=== PATIENT | male | born 1940 | race Caucasian/White ===

== ENCOUNTER 2017-02-05 10:59 | Day surgery (SDC) | payer MEDICARE ==
--- NOTE | 2017-02-05 08:22 | HP ---
DATE OF SURGERY: 02/05/2017 HISTORY OF PRESENT ILLNESS: The patient is a 76 year-old who had some thickening of the bowel on CT scan, history of weight loss 25 to 30 pounds, history of some diarrhea recently. He usually has constipation. He had a CT scan show some thickened bowel. Last colonoscopy several months ago by Dr. Daniels but he had some new thickening of the bowel on CT scan since that time. He had CT scan show multifocal colon bowel wall thickening, some stranding around the ascending colon, question whether colitis or other etiology. PAST MEDICAL HISTORY: Hypertension, hypothyroidism, hypercholesterolemia, chronic obstructive pulmonary disease. PAST SURGICAL HISTORY: Left knee and left elbow surgery in the past. MEDICATIONS: Hydrochlorothiazide, lisinopril, levothyroxine, Simvastatin, omeprazole, Combivent, diltiazem. ALLERGIES: NKDA. FAMILY HISTORY: Negative in regards to this problem. SOCIAL HISTORY: Former smoker. No alcohol abuse currently. REVIEW OF SYSTEMS: Ten systems reviewed per admission assessment, prior history and physical. No chest pain or palpitations other systems negative or noncontributory as above and per preadmission questionnaire. PHYSICAL EXAMINATION: GENERAL: No acute distress. HEENT: Sclerae nonicteric. NECK: No JVD. CHEST: Clear to auscultation. CVS: Regular rate and rhythm. ABDOMEN: Soft. No peritoneal signs. EXTREMITIES: No significant edema. NEURO: Alert, moving extremities symmetrically. No gross motor deficits noted. RECTAL: Deferred timed to endoscopy exam. IMPRESSION: History of some weight loss, diarrhea. He had some thickening of the bowel wall on recent CT scan. I feel he needs follow up colonoscopy to evaluate for colitis or other etiology. Risks and benefits explained in detail but not limited to bleeding or infection, small risk of bowel injury or perforation possibly requiring open procedure, small risk of missed or nondiagnosis or incomplete exam possibly requiring barium enema, other studies or procedures, general risk of anesthesia or sedation, possibility of inability to diagnose the etiology of symptoms possibly requiring other studies or procedures. He understands and agrees to the planned procedure and will proceed with outpatient colonoscopy under MAC anesthesia.
[~2017-02-05 10:59] MED LIST: DIPRIVAN 200 MG/20 ML IV ONE; Ketamine HCl 50 MG/ML IV ONE; Lactated Ringers 1,000 ML IV ONE; Lactated Ringers 1,000 ML IV SCH
[2017-02-05 14:48] VITALS: O2SAT 97
[2017-02-05 14:51] VITALS: BP 145/71; PULSE 51
--- NOTE | 2017-02-06 08:23 | OP ---
SURGERY DATE/TIME: 02/05/2017 1219 PREOPERATIVE DIAGNOSES: 1) History of thickened colon on CT scan. 2) History of diarrhea. 3) History of thickened colon and some stranding on CT scan since his last prior colonoscopy. Need for follow up colonoscopy to evaluate for microscopic colitis or other etiology. POSTOPERATIVE DIAGNOSES: 1) Poor prep limiting the exam. 2) Diverticulosis. 3) Internal and external hemorrhoids. 4) Small raised lesion versus hyperplastic lesion descending colon. 5) Very poor prep as well as very tortuous colon. PROCEDURES: 1) Colonoscopy to terminal ileum and cecum with random cold biopsy throughout the colon to evaluate for microscopic colitis. 2) Hot biopsy raised lesion versus early polyp descending colon versus hyperplastic lesion, path pending. SURGEON: Dr. Stanislaw Nunez. ANESTHESIA: MAC. ESTIMATED BLOOD LOSS: Minimal. INDICATIONS: As noted above. Risks and benefits explained in detail but not limited to and consent obtained. DESCRIPTION OF PROCEDURE AND FINDINGS: The patient is taken to the endoscopy room. MAC anesthesia introduced. After official time out and no disagreement with planned procedure, digital rectal exam did not reveal any rectal masses. He did have some small internal and external hemorrhoids. Video colonoscope inserted and passed up the tortuous sigmoid, descending, transverse colon. Again he had very tortuous colon. With multiple position changes, multiple staff members external pressure finally the scope was able to be passed into the ascending colon. He had cecum appendiceal orifice well visualized as well as the red tip at terminal ileum was grossly unremarkable. No gross signs of inflammatory bowel disease. Again, prep was very poor with several areas of liquidy semi-solid stool particularly in the right colon. The scope was slowly and carefully withdrawn. Random cold biopsies were taken through the colon particularly his right colon where there was some CT skin findings noted. There did not appear to be any obvious macroscopic colitis. No evidence of any ulcers or any signs of any large polyps, masses or other obstructing lesions. Random biopsies were taken to evaluate for microscopic colitis given the CT findings. Again the prep very much limited the exam for very small lesions. The scope was slowly and carefully withdrawn. There was a small raised lesion versus early polyp in descending colon. Descending colon was removed with hot biopsy forceps with brief bursts of cautery. Good hemostasis noted. Otherwise random cold biopsies had been taken to evaluate for microscopic colitis throughout the colon. He did have some diverticulosis. He did have some small internal and external hemorrhoids. The scope is withdrawn. The patient tolerated the procedure well. There had been no evidence of any gross macroscopic colitis. There had been no obvious large polyps, masses or obstructing lesions. The patient tolerated the procedure well. There were no immediate complications. Findings discussed with the family out in the waiting area. Whether he had an infectious colitis that had improved or not was unclear but no obvious macroscopic colitis on endoscopy exam.
== END 2017-02-05 14:40 | disposition home or self-care (01) ==
LOC: SDC 10:59
PROVIDERS: ATTEND Surgery
PROC: 0DBB8ZX Excision of Ileum, Via Natural or Artificial Opening Endoscopic, Diagnostic (ICD-10-PCS; principal; 2017-02-05)
PROC: 0DBH8ZX Excision of Cecum, Via Natural or Artificial Opening Endoscopic, Diagnostic (ICD-10-PCS; 2017-02-05)
PROC: 0DBM8ZX Excision of Descending Colon, Via Natural or Artificial Opening Endoscopic, Diagnostic (ICD-10-PCS; 2017-02-05)
DX: K57.90 Diverticulosis of intestine, part unspecified, without perforation or abscess without bleeding (principal); R93.3 Abnormal findings on diagnostic imaging of other parts of digestive tract; Z09 Encounter for follow-up examination after completed treatment for conditions other than malignant neoplasm; K64.8 Other hemorrhoids; K64.4 Residual hemorrhoidal skin tags; K63.9 Disease of intestine, unspecified; I10 Essential (primary) hypertension; E03.9 Hypothyroidism, unspecified; E78.00 Pure hypercholesterolemia, unspecified; J44.9 Chronic obstructive pulmonary disease, unspecified; Z79.899 Other long term (current) drug therapy
CPT/HCPCS: 00810; 36415; 88305; 99100; J2704

== ENCOUNTER 2019-09-02 11:23 | Day surgery (SDC) | payer MEDICARE ==
[~2019-09-02 11:23] MED LIST changes: +ACETAZOLAMIDE 250 MG TABLET PO ONE; +BETADINE 5% OPHTHALMIC 30 ML OP ONE; +BSS 500 ML, Fortaz/Tazicef 1 GM** 0.2 G IO ONE; -DIPRIVAN 200 MG/20 ML IV ONE; +Epinephrine Preservative Free 1 MG/ML INTRAOP ONE; -Ketamine HCl 50 MG/ML IV ONE; +LIDOCAINE HCL 1% AMPUL 5 ML IJ ONE; -Lactated Ringers 1,000 ML IV ONE; -Lactated Ringers 1,000 ML IV SCH; +Valium 5 MG PO ONE; +Zofran 4 MG/2 ML VIAL IV PRN
[2019-09-02] MEDS ORDERED: MIOSTAT IO ONE (11:24)
[2019-09-02] MEDS ORDERED: Lactated Ringers 1,000 ML IV SCH (11:30)
[2019-09-02] MEDS ORDERED: TETRACAINE 0.5% STERI-UNIT SOL OP ONE ×2 (11:30)
[2019-09-02] MEDS ORDERED: Ak-Dilate OPHTHALMIC*** 1.065 ML, Cyclogyl 1% OPHTH SOL 5 ML 1.065 ML, GATIFLOXACIN 0.5... OP ONE ×4 (11:30)
[2019-09-02] MEDS ORDERED: Lactated Ringers 1,000 ML IV ONE (11:37)
[2019-09-02] MEDS ORDERED: Versed 2 MG/2 ML Injection ONE (13:17)
[2019-09-02] MEDS ORDERED: SUBLIMAZE 100 MCG/2 ML ONE (14:05)
[2019-09-02 14:36] VITALS: O2SAT 99
[2019-09-02 14:58] VITALS: PULSE 53
[2019-09-02 15:15] VITALS: BP 135/65
--- NOTE | 2019-09-02 15:22 | OP ---
DATE/TIME OF OPERATION: 09/02/2019 1326 TIME DICTATED: 1437 PREOPERATIVE DIAGNOSIS: Dislocation of posterior intraocular lens implant right eye. POSTOPERATIVE DIAGNOSIS: Pseudophakia right eye. SURGEON: Tito Clements MD APPRENTICE PHOTOGRAPHER: None. OPERATIONS: 1. Replacement of intraocular lens implant right eye. 2. Vitrectomy right eye. 3. Peripheral iridectomy. ANESTHESIA: MAC ANESTHESIA PROVIDER: Mal Aguilera CRNA. DESCRIPTION OF PROCEDURE: The patient was taken to the operating room after dilating his right eye. The patient was then prepped and draped in the usual way for this procedure. Eyelid speculum was placed into the conjunctival sac to separate the eye lids. Using a keratome a 2.4 mm incision was made temporal at the limbus and a second incision was made at the 12:00 position 1.5 mm in diameter. The anterior chamber was entered and Viscoelastic was placed into the anterior chamber to keep the eye centered during the procedure. The posterior intraocular lens implant that was dislocated into the anterior vitreous was removed. One of the haptics of the intraocular lens implant was still in the sulcus nasally. That was held and the implant was brought up into the anterior chamber and then removed through an extended incision. The incision was 7 mm in diameter. An anterior vitrectomy was performed. Miostat was introduced into the anterior chamber restricted to the constriction of the pupil. More Viscoelastic was placed into the anterior chamber and +15.50 diopter anterior chamber lens implant [id number] made by [employer] was inspected and found to be grossly normal. The implant was left in viscoelastic and introduced into the anterior chamber implant was centered. The pupil was round and central. The anterior chamber was then closed using interrupted 10-0 nylon suture. Anterior chamber was water tight. The aspirating probe of the [employer] system was used to aspirate the excess viscoelastic. Again, Miostat was placed in the anterior chamber to keep the pupil centered. The pupil was round and behind the body of the intraocular lens implant. At 12:00 iridectomy was made through the 12:00 incision. Hydration was placed into the 12:00 incision to keep it sealed. Eyelid speculum was removed. The patient tolerated the procedure quite well and left the operating room in satisfactory condition after placing 3 drops of [id number] into the cul-de-sac.
== END 2019-09-02 15:10 | disposition home or self-care (01) ==
LOC: SDC 11:23
PROVIDERS: ATTEND Ophthalmology
DX: T85.22XA Displacement of intraocular lens, initial encounter (principal); H25.811 Combined forms of age-related cataract, right eye; I10 Essential (primary) hypertension; I51.9 Heart disease, unspecified; J44.9 Chronic obstructive pulmonary disease, unspecified; E78.00 Pure hypercholesterolemia, unspecified; E07.9 Disorder of thyroid, unspecified; Z79.899 Other long term (current) drug therapy
CPT/HCPCS: 66982; 66986; 99100; C1780; J0171; J2250; J3010; A9270-GY

== ENCOUNTER 2020-08-09 16:31 | Emergency (ER) | payer MEDICARE ==
[2020-08-09 16:44] VITALS: BP 145/78
[2020-08-09] MEDS ORDERED: TENIVAC VIAL IM ONE (17:05)
[2020-08-09] MEDS ORDERED: Adacel Vial IM ONE ×2 (17:12→17:14)
--- NOTE | 2020-08-09 17:14 | ERPHSYRPT ---
- History of Present Illness Source: patient Exam Limitations: no limitations Patient Subjective Stated Complaint: Pt was cutting tomatoes and cut his right hand little finger on top of the middle knuckle Triage Nursing Assessment: Pt brought himself to the ER, finger moderately bleeding, vitals wnl, pulses normal, rates pain as 4/10, no other complaints at this time Occurred: just prior to arrival Method of Injury: incised Quality: constant Severity of Pain-Max: moderate Severity of Pain-Current: mild Extremities Pain Location: 5th finger: right (PIP dorsum) Modifying Factors: Improves With: movement Allergies/Adverse Reactions: No Known Drug Allergies Allergy (Verified 08/09/20 16:44) Home Medications: Omeprazole 20 MG [Prilosec 20 mg] 20 mg PO DAILY 12/23/12 [History] Simvastatin [Zocor] 10 mg PO HS 12/23/12 [History] Levothyroxine Sodium 100 Mcg [Synthroid 100 Mcg] 125 mcg PO DAILY 12/24/12 [History] Lisinopril/Hydrochlorothiazide [Lisinopril-Hctz 20-12.5 mg Tab] 1 tab PO DAILY 12/24/12 [History] Acetaminophen [Tylenol Extra Strength Arthrit] 500 mg PO Q4H PRN PRN 05/20/13 [History] Ipratropium/Albuterol Sulfate [Combivent Inhaler] 14.7 gm IH TID PRN 05/20/13 [History] dilTIAZem HCL [Diltiazem ER] 180 mg PO DAILY 07/10/16 [History] Hx Tetanus, Diphtheria Vaccination/Date Given: Yes Hx Influenza Vaccination/Date Given: Yes Hx Pneumococcal Vaccination/Date Given: Yes Travel Risk - International Travel Have you traveled outside of the country in past 3 weeks: No - Coronavirus Screening Are you exhibiting any of the following symptoms?: No Close contact with a COVID-19 positive Pt in past 14-21 Days: No - Review of Systems Constitutional: No Fever, No Chills Eyes: No Symptoms Ears, Nose, & Throat: No Symptoms Respiratory: No Cough, No Dyspnea Cardiac: No Chest Pain, No Edema, No Syncope Abdominal/Gastrointestinal: No Abdominal Pain, No Nausea, No Vomiting, No Diarrhea Genitourinary Symptoms: No Dysuria Musculoskeletal: No Back Pain, No Neck Pain Skin: Other (skin avulsion), No Rash Neurological: No Dizziness, No Focal Weakness, No Sensory Changes Psychological: No Symptoms Endocrine: No Symptoms All Other Systems: Reviewed and Negative - Past Medical History Pertinent Past Medical History: Yes Neurological History: Migraines, TIA ENT History: Cataracts Cardiac History: Arrhythmia, High Cholesterol, Hypertension Respiratory History: COPD Endocrine Medical History: Adrenal Insufficiency, Hyperthyroidism, Hypothyroidism Musculoskeletal History: Osteoarthritis GI Medical History: GERD History: Other Psycho-Social History: No Pertinent History Male Reproductive Disorders: No Pertinent History Other Medical History: Pt sleeps with O2. some kidney insufficiency. HX afib - Past Surgical History Past Surgical History: Yes Neuro Surgical History: No Pertinent History Cardiac: Cardiac Catheterization Respiratory: No Pertinent History Gastrointestinal: Appendectomy Genitourinary: No Pertinent History Musculoskeletal: Orthopedic Surgery Male Surgical History: No Pertinent History Other Surgical History: left knee-bone chip removed, bilateral cataracts removed, R hand trigger finger release., left elbow - Social History Smoking Status: Former smoker Exposure to second hand smoke: No Drug Use: none Patient Lives Alone: Yes - Nursing Vital Signs Nursing Vital Signs: Initial Vital Signs Pulse Rate 74 08/09/20 16:37 Blood Pressure 145/78 08/09/20 16:37 O2 Sat by Pulse Oximetry 99 08/09/20 16:37 Pain Scale Pain Intensity 4 - Physical Exam General Appearance: alert Eyes, Ears, Nose, Throat Exam: moist mucous membranes Neck Exam: non-tender, supple Cardiovascular/Respiratory Exam: chest non-tender, normal breath sounds, regular rate/rhythm, no respiratory distress Abdominal Exam: non-tender, No guarding Back Exam: normal inspection, No vertebral tenderness Shoulder Exam: normal inspection Elbow/Forearm Exam: normal inspection Wrist Exam: normal inspection Hand Exam: laceration (skin avulsion over dorsum PIP Rt 5th digit. ) Neuro/Tendon Exam: normal sensation, normal motor functions Mental Status Exam: alert, oriented x 3, cooperative Skin Exam: normal color, warm, dry SpO2: 99 - Course Nursing assessment & vital signs reviewed: Yes Ordered Tests: Active Orders 24 hr Category Date Time Status Splint STAT Care 08/09/20 17:12 Completed Wound Care STAT Care 08/09/20 17:05 Completed Medication Summary Discontinued Medications Generic Name Dose Route Start Last Admin Trade Name Freq PRN Reason Stop Dose Admin Diphtheria/Tetanus/Acell Pertussis 0.5 ml 08/09/20 17:12 08/09/20 17:15 Adacel Vial IM 08/09/20 17:13 0.5 ml .ONCE ONE Administration Diphtheria/Tetanus/Acell Pertussis Confirm 08/09/20 17:14 Adacel Vial Administered 08/09/20 17:15 Dose 0.5 ml IM .STK-MED ONE Tetanus/Diphtheria Toxoids Adsorbed 0.5 ml 08/09/20 17:05 08/09/20 17:15 Tenivac Vial IM 08/09/20 17:06 Not Given .ONCE ONE - Progress Progress: improved Progress Note: 08/09/20 17:34 Will do wound care. will dress in flexed position since significant skin avulsion noted on dorsum PIP. Bleeding controlled. Will advised close follow up and possible wound care referral. Pt in agreement. - Departure Departure Disposition: Home Clinical Impression: Laceration of finger, Avulsion of skin of finger Condition: Stable Critical Care Time: No Referrals: ALLIE GUDINO MD [Primary Care Provider] - Instructions: Wound Care (DC) Additional Instructions: Monitor closely. Follow up with your PCP for further care and management. Change dressing in a few days. Return to ER if worse. Prescriptions: Smz/Tmp Ds Tablet [Bactrim Ds Tablet] 1 udtab PO BID 5 Days #10 tablet
[2020-08-09 17:38] VITALS: PULSE 79
[2020-08-09 21:14] VITALS: O2SAT 99
== END 2020-08-09 17:38 | disposition home or self-care (01) ==
LOC: ED 16:31
DX: S61.216A Laceration without foreign body of right little finger without damage to nail, initial encounter (principal); W26.0XXA Contact with knife, initial encounter; Y93.G1 Activity, food preparation and clean up; Y92.9 Unspecified place or not applicable; I10 Essential (primary) hypertension; J44.9 Chronic obstructive pulmonary disease, unspecified; E27.40 Unspecified adrenocortical insufficiency; E03.9 Hypothyroidism, unspecified; K21.9 Gastro-esophageal reflux disease without esophagitis; Z86.79 Personal history of other diseases of the circulatory system
CPT/HCPCS: 90471; 90715; 99283

== ENCOUNTER 2021-01-13 18:09 | Emergency (ER) | payer MEDICARE ==
[2021-01-13 18:53] LABS: Absolute Neutrophil Ct (ANC) 5.02 (1.4-6.9); BASOPHIL % 0.9 % (0.0-0.4); Basophil (Absolute #) 0.05 (0-0.4); Eosinophil % 0.2 % (0.00-5.0); Eosinophil (Absolute #) 0.01 (0-0.5); Hematocrit 30.9 % (42-50); Hemoglobin 8.6 gm/dl (12.5-18.0); Lymphocyte (Absolute #) 0.52 (1.0-4.6); Lymphocytes % 9.2 % (24.0-44.0); Mean Cell Volume 74.1 fl (78-100); Mean Corpuscular Hemoglobin 20.6 pg (26-32); Mean Corpuscular Hgb Concent. 27.8 g/dl (32-36); Mean Platelet Volume 9.8 fl (7.5-11.0); Monocyte (Absolute #) 0.07 (0.0-1.3); Monocytes % 1.2 % (0.0-12.0); Neutrophil % 88.5 % (36.0-66.0); Platelet Count 272 K/mm3 (150-450); Red Blood Count 4.17 M/mm3 (4.1-5.6); Red Cell Distribution Width 20.1 % (11.5-14.0); White Blood Count 5.7 K/mm3 (4.0-10.5)
[2021-01-13 19:14] LABS: ALBUMIN 4.4 g/dL (3.5-5.0); ANION GAP 13.9 MEQ/L (5-15); BILIRUBIN,TOTAL 0.2 mg/dL (0.2-1.3); Calcium 9.7 mg/dL (8.4-10.2); Creatinine 1 1.63 mg/dL (0.66-1.25); EST GLOMERULAR FILTRATION RATE 43.4 ML/MIN; MAGNESIUM 2.3 mg/dL (1.6-2.3); Potassium 4.6 mmol/L (3.5-5.1); Total Protein 7.6 g/dL (6.3-8.2)
[2021-01-13 19:55] LABS: Slide Review 1 YES
[2021-01-13 21:02] LABS: Appearance CLEAR (CLEAR); Bilirubin NEGATIVE (NEGATIVE); Blood NEGATIVE Ery/ul (0-5); Glucose NEGATIVE (NEGATIVE); Ketones NEGATIVE (NEGATIVE); Leukocyte Esterase NEGATIVE (NEGATIVE); Nitrite NEGATIVE (NEGATIVE); Protein,Urine Dip NEGATIVE (Negative); Specific Gravity 1.013 (1.005-1.025); Urobilinogen NEGATIVE mg/dL (0-1)
[2021-01-13 21:06] LABS: Bacteria NONE SEEN /HPF (NEGATIVE); RBC NONE SEEN /HPF (0-2)
--- NOTE | 2021-01-13 21:13 | ERPHSYRPT ---
- History of Present Illness Time Seen by Provider: 01/13/21 18:20 Source: patient Exam Limitations: no limitations Patient Subjective Stated Complaint: "I was cooking dinner and all of the sudden got dizzy." Triage Nursing Assessment: Reported acute onset dizziness while cooking dinner. Reported having a spinal injection for lower back pain today around 1300. Denied any complications with the procedure. Reported no new injuries. Head atraumat ic. Pupils 3mm brisk direct and consensual reaction to light. Symmetrical facial expressions. Neck supple non-tender without JVD. Symmetrical chest expansion. Heart tones s1/s2 regular rate and rhythm. Lungs vesicular without adventitious sounds. Abdomen soft non-tender without hepatosplenomegaly. Peripheral pulses +2 bilateral. NIHHS - 0 Physician History: Patient is a 80-year-old male who presents to our ED with complaints of dizziness. Patient states he was at home cooking when the dizziness occurred. Dizziness lasted for approximately 30 minutes. Dizziness significantly improved upon arrival. No falls or trauma. No blurred vision. No headache no numbness tingling or weakness. Patient became concerned and called 911. Upon arrival patient felt well. Patient states he has chronic low back pain. He had an injection earlier today. Patient states there were no complications. Procedure went well. Patient is not sure if this procedure had anything to do with his dizziness. Symptoms are mild to moderate in intensity. No specific worsening or improving factors. Patient voices no other complaints or concerns at this time. Timing/Duration: today Severity: moderate Modifying Factors: Improves With: cold therapy Associated Symptoms: No nausea, No vomiting, No abdominal pain, No shortness of breath, No heartburn, No diaphoresis, No cough, No chills, No chest pain, No fever, No headaches, No loss of appetite, No malaise, No rash, No syncope, No seizure Allergies/Adverse Reactions: No Known Drug Allergies Allergy (Verified 08/09/20 16:44) Home Medications: Omeprazole 20 MG [Prilosec 20 mg] 20 mg PO DAILY 12/23/12 [History] Simvastatin [Zocor] 10 mg PO HS 12/23/12 [History] Levothyroxine Sodium 100 Mcg [Synthroid 100 Mcg] 125 mcg PO DAILY 12/24/12 [History] Lisinopril/Hydrochlorothiazide [Lisinopril-Hctz 20-12.5 mg Tab] 1 tab PO DAILY 12/24/12 [History] Acetaminophen [Tylenol Extra Strength Arthrit] 500 mg PO Q4H PRN PRN 05/20/13 [History] Ipratropium/Albuterol Sulfate [Combivent Inhaler] 14.7 gm IH TID PRN 05/20/13 [History] dilTIAZem HCL [Diltiazem ER] 180 mg PO DAILY 07/10/16 [History] Hx Tetanus, Diphtheria Vaccination/Date Given: Yes Hx Influenza Vaccination/Date Given: Yes Hx Pneumococcal Vaccination/Date Given: Yes Travel Risk - International Travel Have you traveled outside of the country in past 3 weeks: No - Coronavirus Screening Are you exhibiting any of the following symptoms?: No Close contact with a COVID-19 positive Pt in past 14-21 Days: No - Review of Systems Constitutional: No Symptoms, No Fever, No Chills Eyes: No Symptoms Ears, Nose, & Throat: No Symptoms Respiratory: No Symptoms, No Cough, No Dyspnea Cardiac: No Symptoms, No Chest Pain, No Edema, No Syncope Abdominal/Gastrointestinal: No Symptoms, No Abdominal Pain, No Nausea, No Vomiting, No Diarrhea Genitourinary Symptoms: No Symptoms, No Dysuria Musculoskeletal: No Symptoms, No Back Pain, No Neck Pain Skin: No Symptoms, No Rash Neurological: No Symptoms, No Dizziness, No Focal Weakness, No Sensory Changes Psychological: No Symptoms Endocrine: No Symptoms Hematologic/Lymphatic: No Symptoms Immunological/Allergic: No Symptoms All Other Systems: Reviewed and Negative - Past Medical History Pertinent Past Medical History: Yes Neurological History: Migraines, TIA ENT History: Cataracts Cardiac History: Arrhythmia, High Cholesterol, Hypertension Respiratory History: COPD Endocrine Medical History: Adrenal Insufficiency, Hypothyroidism Musculoskeletal History: Osteoarthritis GI Medical History: GERD History: Other Psycho-Social History: No Pertinent History Male Reproductive Disorders: No Pertinent History Other Medical History: Pt sleeps with O2. some kidney insufficiency. HX afib - Past Surgical History Past Surgical History: Yes Neuro Surgical History: No Pertinent History Cardiac: Cardiac Catheterization Respiratory: No Pertinent History Gastrointestinal: Appendectomy Genitourinary: No Pertinent History Musculoskeletal: Orthopedic Surgery Male Surgical History: No Pertinent History Other Surgical History: left knee-bone chip removed, bilateral cataracts removed, R hand trigger finger release., left elbow - Social History Smoking Status: Former smoker Exposure to second hand smoke: No Drug Use: none Patient Lives Alone: Yes - Nursing Vital Signs Nursing Vital Signs: Initial Vital Signs Temperature 98.3 F 01/13/21 18:11 Pulse Rate 79 01/13/21 18:11 Respiratory Rate 18 01/13/21 18:11 Blood Pressure 200/95 01/13/21 18:11 O2 Sat by Pulse Oximetry 98 01/13/21 18:11 Pain Scale Pain Intensity 0 - Physical Exam General Appearance: no apparent distress, alert Eye Exam: PERRL/EOMI, eyes nml inspection Ears, Nose, Throat Exam: normal ENT inspection, TMs normal, pharynx normal, moist mucous membranes Neck Exam: normal inspection, non-tender, supple, full range of motion Respiratory Exam: normal breath sounds, lungs clear, No respiratory distress Cardiovascular Exam: regular rate/rhythm, normal heart sounds, normal peripheral pulses Gastrointestinal/Abdomen Exam: soft, normal bowel sounds, No tenderness, No mass Back Exam: normal inspection, normal range of motion, No CVA tenderness, No vertebral tenderness Extremity Exam: normal inspection, normal range of motion, pelvis stable Neurologic Exam: alert, oriented x 3, cooperative, normal mood/affect, nml cerebellar function, nml station & gait, sensation nml, No motor deficits Skin Exam: normal color, warm, dry, No rash Lymphatic Exam: No adenopathy SpO2 Interpretation: normal SpO2: 97 O2 Delivery: Room Air - Course Nursing assessment & vital signs reviewed: Yes EKG Interpreted by Me: RATE (81), Sinus Rhythm, NORMAL AXIS, NORMAL INTERVALS (Prolonged GA interval. Premature atrial complex.) - Radiology Exams Chest X-ray Interpretation: Interpreted by me (Stigmata of old granulomatous disease. Flat diaphragms suggest underlying emphysema. No pleural effusion. No pneumothorax. Borderline cardiomegaly. Impression no new acute findings.) - CT Exams Head CT Interpretation: Tele-radiologist Report (Intermediate new 9 mm right basal ganglia hypodensity. Suggest brain MRI with and without contrast if clinically indicated. Mild left maxillary mucosal thickening.) Ordered Tests: Active Orders 24 hr Category Date Time Status Rug Measurer STAT Care 01/13/21 18:24 Active EKG-ER Only STAT Care 01/13/21 18:24 Active IV Insertion STAT Care 01/13/21 18:24 Active Pulse Oximetry (ED) STAT Care 01/13/21 18:24 Active CHEST 1 VIEW (PORTABLE) Stat Exams 01/13/21 18:24 Taken HEAD WITHOUT CONTRAST [CT] Stat Exams 01/13/21 19:30 Taken CBC W DIFF Stat Lab 01/13/21 18:45 Completed CMP Stat Lab 01/13/21 18:45 Completed MAGNESIUM Stat Lab 01/13/21 18:45 Completed NT PRO BNP Stat Lab 01/13/21 18:45 Completed TROPONIN Q3H Lab 01/13/21 18:45 Completed TROPONIN Q3H Lab 01/13/21 21:29 Completed TROPONIN Q3H Lab 01/14/21 00:30 Ordered TROPONIN Q3H Lab 01/14/21 03:30 Ordered TROPONIN Q3H Lab 01/14/21 06:30 Ordered UA W/RFX UR CULTURE Stat Lab 01/13/21 20:06 Completed Medication Summary Generic Name Dose Route Start Last Admin Trade Name Freq PRN Reason Stop Dose Admin Sodium Chloride 1,000 mls @ 75 mls/hr 01/13/21 23:15 Sodium Chloride 0.9% 1000 Ml IV 02/12/21 23:14 .[id number] SONIA Discontinued Medications Generic Name Dose Route Start Last Admin Trade Name Freq PRN Reason Stop Dose Admin Aspirin 324 mg 01/13/21 23:03 Baby Aspirin 81 Mg Chew PO 01/13/21 23:04 STAT ONE Lab/Rad Data: Laboratory Result Diagrams 01/13/21 18:45 01/13/21 18:45 Laboratory Results 01/13/21 01/13/21 01/13/21 Range/Units 21:29 20:06 18:45 WBC (4.0-10.5) K/mm3 RBC (4.1-5.6) M/mm3 Hgb (12.5-18.0) gm/dl Hct (42-50) % MCV (78-100) fl MCH (26-32) pg MCHC (32-36) g/dl RDW (11.5-14.0) % Plt Count (150-450) K/mm3 MPV (7.5-11.0) fl Gran % (36.0-66.0) % Eos # (Auto) (0-0.5) Absolute Lymphs (auto) (1.0-4.6) Absolute Monos (auto) (0.0-1.3) Lymphocytes % (24.0-44.0) % Monocytes % (0.0-12.0) % Eosinophils % (0.00-5.0) % Basophils % (0.0-0.4) % Absolute Granulocytes (1.4-6.9) Basophils # (0-0.4) Sodium (137-145) mmol/L Potassium (3.5-5.1) mmol/L Chloride (98-107) mmol/L Carbon Dioxide (22-30) mmol/L Anion Gap (5-15) MEQ/L BUN (9-20) mg/dL Creatinine (0.66-1.25) mg/dL Estimated GFR ML/MIN Glucose (74-106) mg/dL Calcium (8.4-10.2) mg/dL Magnesium (1.6-2.3) mg/dL Total Bilirubin (0.2-1.3) mg/dL AST (17-59) U/L ALT (0-50) U/L Alkaline Phosphatase (38-126) U/L Troponin I < 0.012 < 0.012 (0.000-0.034) ng/mL NT-Pro-B Natriuret Pep (0-1800) pg/mL Serum Total Protein (6.3-8.2) g/dL Albumin (3.5-5.0) g/dL Urine Color YELLOW (YELLOW) Urine Appearance CLEAR (CLEAR) Urine pH 7.0 (5-6) Ur Specific Keo 1.013 (1.005-1.025) Urine Protein NEGATIVE (Negative) Urine Ketones NEGATIVE (NEGATIVE) Urine Blood NEGATIVE (0-5) Jacob/ul Urine Nitrite NEGATIVE (NEGATIVE) Urine Bilirubin NEGATIVE (NEGATIVE) Urine Urobilinogen NEGATIVE (0-1) mg/dL Ur Leukocyte Esterase NEGATIVE (NEGATIVE) Urine WBC (Auto) NONE (0-5) /HPF Urine RBC (Auto) NONE SEEN (0-2) /HPF U Epithel Cells (Auto) NONE (FEW) /HPF Urine Bacteria (Auto) NONE SEEN (NEGATIVE) /HPF Urine Culture Reflexed NO (NO) Urine Glucose NEGATIVE (NEGATIVE) mg/dL Slides for Path Review 01/13/21 01/13/21 Range/Units 18:45 18:45 WBC 5.7 (4.0-10.5) K/mm3 RBC 4.17 (4.1-5.6) M/mm3 Hgb 8.6 L (12.5-18.0) gm/dl Hct 30.9 L (42-50) % MCV 74.1 L (78-100) fl MCH 20.6 L (26-32) pg MCHC 27.8 L (32-36) g/dl RDW 20.1 H (11.5-14.0) % Plt Count 272 (150-450) K/mm3 MPV 9.8 (7.5-11.0) fl Gran % 88.5 H (36.0-66.0) % Eos # (Auto) 0.01 (0-0.5) Absolute Lymphs (auto) 0.52 L (1.0-4.6) Absolute Monos (auto) 0.07 (0.0-1.3) Lymphocytes % 9.2 L (24.0-44.0) % Monocytes % 1.2 (0.0-12.0) % Eosinophils % 0.2 (0.00-5.0) % Basophils % 0.9 (0.0-0.4) % Absolute Granulocytes 5.02 (1.4-6.9) Basophils # 0.05 (0-0.4) Sodium 137 (137-145) mmol/L Potassium 4.6 (3.5-5.1) mmol/L Chloride 106 (98-107) mmol/L Carbon Dioxide 22 (22-30) mmol/L Anion Gap 13.9 (5-15) MEQ/L BUN 28 H (9-20) mg/dL Creatinine 1.63 H (0.66-1.25) mg/dL Estimated GFR 43.4 ML/MIN Glucose 143 H (74-106) mg/dL Calcium 9.7 (8.4-10.2) mg/dL Magnesium 2.3 (1.6-2.3) mg/dL Total Bilirubin 0.20 (0.2-1.3) mg/dL AST 29 (17-59) U/L ALT 10 (0-50) U/L Alkaline Phosphatase 63 (38-126) U/L Troponin I (0.000-0.034) ng/mL NT-Pro-B Natriuret Pep 1050 (0-1800) pg/mL Serum Total Protein 7.6 (6.3-8.2) g/dL Albumin 4.4 (3.5-5.0) g/dL Urine Color (YELLOW) Urine Appearance (CLEAR) Urine pH (5-6) Ur Specific Keo (1.005-1.025) Urine Protein (Negative) Urine Ketones (NEGATIVE) Urine Blood (0-5) Jacob/ul Urine Nitrite (NEGATIVE) Urine Bilirubin (NEGATIVE) Urine Urobilinogen (0-1) mg/dL Ur Leukocyte Esterase (NEGATIVE) Urine WBC (Auto) (0-5) /HPF Urine RBC (Auto) (0-2) /HPF U Epithel Cells (Auto) (FEW) /HPF Urine Bacteria (Auto) (NEGATIVE) /HPF Urine Culture Reflexed (NO) Urine Glucose (NEGATIVE) mg/dL Slides for Path Review YES - Progress Progress: improved Progress Note: 01/13/21 21:36 Patient reassessed. He feels much better. Dizziness resolved. Patient ambulated in our ED independently. No problems with gait. NIH 0. Patient will require admission for possible TIA. [facility] therefore we will contact [facility] to see if transferring is a possibility. 01/13/21 22:[address] Mcintyre neurologist at the [facility] who accepts transfer. We are awaiting return call for a bed assignment. Patient understands that he will need to be transferred for further evaluation and treatment of possible TIA. Patient has anemia of 8.6. Etiology is unclear. No clear source of blood loss apparent at this time. This information was conveyed to Dr. Mcintyre he will include this in his work-up. Counseled pt/family regarding: lab results, diagnosis, rad results - Departure Departure Disposition: Observation Clinical Impression: Sinusitis, Brain lesion, Dizziness, Anemia, Chronic renal insufficiency Condition: Stable Critical Care Time: No Referrals: ALLIE GUDINO MD [Primary Care Provider] -
[2021-01-13] MEDS ORDERED: BABY ASPIRIN 81 MG CHEW PO ONE (23:03)
[2021-01-13] MEDS ORDERED: Sodium Chloride 0.9% 1000 ML 1,000 ML IV SCH (23:15)
[2021-01-13] MEDS ORDERED: Sodium Chloride 0.9% 1000 ML 1,000 ML ONE (23:51)
[2021-01-14 00:10] VITALS: BP 162/78; PULSE 66; O2SAT 99
--- NOTE | 2021-01-14 10:53 | XRAY ---
Exam: CT of the head without IV contrast from 01/13/2021. CTDI: 53.92 mGy Comparison: CT of the head without IV contrast from 10/12/2009. Indication: 80-year-old male with dizziness, no known injury. Technique: Non-IV contrast axial images were obtained through the brain. Reconstructed coronal and sagittal images were created and reviewed. Findings: The ventricles appear of unremarkable size. No focal mass effect or midline shift is seen. There is a new 9 mm hypoattenuation within the right basal ganglia on image #33 of series 2. This is seen near the junction of the medial margin of the right lentiform nucleus and genu of the internal capsule. This might represent a lacunar infarct. Other possibilities are not excluded. I see no evidence of acute intracranial bleed or abnormal extra-axial fluid collection. No other low attenuation brain lesion is seen. There is mild cerebral cortical atrophy, not inconsistent with the patient's age of 80 years. Some vascular calcification is seen within both distal internal carotid arteries, as well as both distal vertebral arteries. The calvarium of the skull appears intact. Significant degenerative change is seen at the preodontoid space of C1-C2 on the axial and sagittal images. The paranasal sinuses reveal some mild mucosal thickening within the inferior aspect of both maxillary sinuses, left greater than right. No definite air-fluid level is seen. Slight deviation of the anterior aspect of the nasal septum toward the left is seen. The mastoid air cells are clear without effusion. The middle ear cavities appear grossly unremarkable bilaterally. The orbits appear unremarkable. Impression: 1. New ill-defined 9 mm in diameter right basal ganglia hypoattenuated density as compared to 10/12/2009. This might represent a lacunar infarct, although other possibilities are not excluded. Further evaluation with a brain MRI without and with IV contrast may be helpful if clinically indicated. 2. Mild cerebral cortical atrophy. 3. Mild inferior bilateral maxillary sinus mucosal thickening, left greater than right.
--- NOTE | 2021-01-14 10:54 | XRAY ---
Exam: AP upright portable chest film from 01/13/2021. Comparison: AP upright portable chest film from 09/06/2020. Indication: 80-year-old male with dizziness. Findings: The lungs are again noted be hyperinflated. The transverse heart size is probably at the upper limits of normal. There is some mild magnification on this AP portable technique. Calcification within the aortic knob is seen. A few small granulomatous calcifications overlie the left hilum representing no change. The remainder of the massimo and mediastinal structures appears unremarkable. Left-sided cardiac pacemaker is again seen with dual transvenous leads in unchanged position. Both leads appear intact. I see no air space infiltrates, vascular congestion, pneumothorax, or pleural fluid. EKG leads are seen in place. There is minimal biapical pleural thickening. Some degenerative spurring is seen within the thoracic spine. Impression: 1. I again see a mildly hyperinflated chest without evidence of acute cardiopulmonary disease. Left-sided cardiac pacemaker with dual transvenous leads in place is again seen. 2. Old healed granulomatous disease overlies the left hilum.
== END 2021-01-14 00:10 | disposition short-term general hospital (02) ==
LOC: ED 18:09
DX: R42 Dizziness and giddiness (principal); J32.9 Chronic sinusitis, unspecified; G93.9 Disorder of brain, unspecified; E78.5 Hyperlipidemia, unspecified; D64.9 Anemia, unspecified; N18.9 Chronic kidney disease, unspecified; I10 Essential (primary) hypertension; E03.9 Hypothyroidism, unspecified; Z79.899 Other long term (current) drug therapy
CPT/HCPCS: 36000; 36415; 70450; 71045; 80053; 81001; 83735; 83880; 84484; 85025; 93005; 93041; 94760; 99285; A9270-GY

== ENCOUNTER 2021-07-26 07:49 | Emergency (ER) | payer MEDICARE, OTHER ==
--- NOTE | 2021-07-26 07:53 | ERPHSYRPT ---
- History of Present Illness Time Seen by Provider: 07/26/21 07:53 Source: patient, family Physician History: This is an 80-year-old white male has a history of hypertension, arrhythmia disorder, migraine headaches, TIAs, COPD, hypothyroidism, elevated cholesterol, gastroesophageal reflux disease and presents with "fog" of the left eye. He woke up with this complaint. He has no pain anywhere. Patient does see a retinal specialist in [facility]. He does recall that he had a similar issue in the right eye. The last time the patient's vision was normal was before he went to bed last evening. Patient takes his medication at night. He has not taken his medication this morning. Patient also presents with an elevated systolic blood pressure in the 195 range. He denies headache. He denies chest pain. He denies shortness of breath. He has had no fevers or chills. He has had no nausea vomiting or diarrhea. Patient's local primary care physician is Dr. Gudino. In addition, he has a [facility] primary care physician. Patient's main issue today is to determine if he has had a stroke. If this work-up is negative for stroke, then he is planning on traveling to [facility] to see his retinal specialist. Timing/Duration: today Severity: mild Associated Symptoms: denies symptoms Allergies/Adverse Reactions: No Known Drug Allergies Allergy (Verified 07/26/21 08:10) Home Medications: Omeprazole 20 MG [Prilosec 20 mg] 20 mg PO DAILY 12/23/12 [History] Levothyroxine Sodium 100 Mcg [Synthroid 100 Mcg] 125 mcg PO DAILY 12/24/12 [History] Lisinopril/Hydrochlorothiazide [Lisinopril-Hctz 20-12.5 mg Tab] 1 tab PO DAILY 12/24/12 [History] Acetaminophen [Tylenol Extra Strength Arthrit] 500 mg PO Q4H PRN PRN 05/20/13 [ History] Ipratropium/Albuterol Sulfate [Combivent Inhaler] 14.7 gm IH TID PRN 05/20/13 [History] dilTIAZem HCL [Diltiazem ER] 180 mg PO DAILY 07/10/16 [History] Atorvastatin Calcium 40 mg PO 07/26/21 [History] Rivaroxaban [Xarelto] 15 mg PO DAILY 07/26/21 [History] Hx Tetanus, Diphtheria Vaccination/Date Given: Yes Hx Influenza Vaccination/Date Given: Yes Hx Pneumococcal Vaccination/Date Given: Yes Travel Risk - International Travel Have you traveled outside of the country in past 3 weeks: No - Coronavirus Screening Are you exhibiting any of the following symptoms?: No Close contact with a COVID-19 positive Pt in past 14-21 Days: No - Review of Systems Constitutional: No Symptoms Eyes: Vision Changes ("Fog" left eye) Ears, Nose, & Throat: No Symptoms Respiratory: No Symptoms Cardiac: No Symptoms Abdominal/Gastrointestinal: No Symptoms Genitourinary Symptoms: No Symptoms Musculoskeletal: No Symptoms Skin: No Symptoms Neurological: No Symptoms Psychological: No Symptoms Endocrine: No Symptoms Hematologic/Lymphatic: No Symptoms Immunological/Allergic: No Symptoms All Other Systems: Reviewed and Negative - Past Medical History Pertinent Past Medical History: Yes Neurological History: Migraines, TIA ENT History: Cataracts Cardiac History: Arrhythmia, High Cholesterol, Hypertension Respiratory History: COPD Endocrine Medical History: Adrenal Insufficiency, Hypothyroidism Musculoskeletal History: Osteoarthritis GI Medical History: GERD History: Other Psycho-Social History: No Pertinent History Male Reproductive Disorders: No Pertinent History Other Medical History: Pt sleeps with O2. some kidney insufficiency. HX afib - Past Surgical History Past Surgical History: Yes Neuro Surgical History: No Pertinent History Cardiac: Cardiac Catheterization Respiratory: No Pertinent History Gastrointestinal: Appendectomy Genitourinary: No Pertinent History Musculoskeletal: Orthopedic Surgery Male Surgical History: No Pertinent History Other Surgical History: left knee-bone chip removed, bilateral cataracts removed, R hand trigger finger release., left elbow - Social History Smoking Status: Former smoker Exposure to second hand smoke: No Drug Use: none Patient Lives Alone: Yes - Nursing Vital Signs Nursing Vital Signs: Initial Vital Signs Temperature 97.0 F 07/26/21 07:55 Pulse Rate 70 07/26/21 07:55 Respiratory Rate 18 07/26/21 07:55 Blood Pressure 213/91 07/26/21 07:55 O2 Sat by Pulse Oximetry 97 07/26/21 07:55 Pain Scale Pain Intensity 0 - Physical Exam General Appearance: no apparent distress, alert, anxiety Eye Exam: PERRL/EOMI, eyes nml inspection Ears, Nose, Throat Exam: normal ENT inspection, moist mucous membranes Neck Exam: normal inspection, non-tender, supple, full range of motion Respiratory Exam: normal breath sounds, lungs clear, No chest tenderness, No respiratory distress Cardiovascular Exam: regular rate/rhythm, normal heart sounds, normal peripheral pulses Gastrointestinal/Abdomen Exam: soft, normal bowel sounds, No tenderness Rectal Exam: not done Back Exam: normal inspection, normal range of motion, No CVA tenderness, No vertebral tenderness Extremity Exam: normal inspection, normal range of motion, pelvis stable Neurologic Exam: alert, oriented x 3, cooperative, associate quality engineer II-XII nml as tested, normal mood/affect, nml cerebellar function, nml station & gait, sensation nml, No facial droop, No slurred speech Skin Exam: normal color, warm, dry Lymphatic Exam: No adenopathy SpO2 Interpretation: normal O2 Delivery: Room Air - Course Nursing assessment & vital signs reviewed: Yes EKG Interpreted by Me: RATE (65), Sinus Rhythm, NORMAL AXIS, NORMAL QRS, NORMAL ST-T, Other (No acute ischemic changes on today's EKG. There are no new changes when compared to EKG dated 01/13/2021) Ordered Tests: Active Orders 24 hr Category Date Time Status EKG-ER Only STAT Care 07/26/21 08:16 Active IV Insertion STAT Care 07/26/21 08:16 Active HEAD WITHOUT CONTRAST [CT] Stat Exams 07/26/21 08:15 Completed CBC W DIFF Stat Lab 07/26/21 08:36 Completed CMP Stat Lab 07/26/21 08:36 Completed MAGNESIUM Stat Lab 07/26/21 08:36 Completed Medication Summary Generic Name Dose Route Start Last Admin Trade Name Freq PRN Reason Stop Dose Admin Hydralazine HCl 5 mg 07/26/21 10:45 Apresoline 20 Mg/Ml Inj IV 08/25/21 10:44 [id number] PRN HYPERTENSION Discontinued Medications Generic Name Dose Route Start Last Admin Trade Name Freq PRN Reason Stop Dose Admin Enalaprilat 1.25 mg 07/26/21 08:16 07/26/21 08:53 Vasotec I.V. 2.5 Mg IV 07/26/21 08:17 1.25 mg STAT ONE Administration Enalaprilat Confirm 07/26/21 08:52 Vasotec I.V. 2.5 Mg Administered 07/26/21 08:53 Dose 2.5 mg IV .STK-MED ONE Enalaprilat 1.25 mg 07/26/21 09:34 07/26/21 09:58 Vasotec I.V. 2.5 Mg IV 07/26/21 09:35 1.25 mg STAT ONE Administration Enalaprilat Confirm 07/26/21 09:56 Vasotec I.V. 2.5 Mg Administered 07/26/21 09:57 Dose 2.5 mg IV .STK-MED ONE Lab/Rad Data: Laboratory Result Diagrams 07/26/21 08:36 07/26/21 08:36 Laboratory Results 07/26/21 07/26/21 Range/Units 08:36 08:36 WBC 6.0 (4.0-10.5) K/mm3 RBC 3.86 L (4.1-5.6) M/mm3 Hgb 8.7 L (12.5-18.0) gm/dl Hct 30.1 L (42-50) % MCV 78.0 (78-100) fl MCH 22.5 L (26-32) pg MCHC 28.9 L (32-36) g/dl RDW 21.4 H (11.5-14.0) % Plt Count 205 (150-450) K/mm3 MPV 10.2 (7.5-11.0) fl Gran % 66.5 H (36.0-66.0) % Eos # (Auto) 0.24 (0-0.5) Absolute Lymphs (auto) 1.17 (1.0-4.6) Absolute Monos (auto) 0.55 (0.0-1.3) Lymphocytes % 19.4 L (24.0-44.0) % Monocytes % 9.1 (0.0-12.0) % Eosinophils % 4.0 (0.00-5.0) % Basophils % 1.0 (0.0-0.4) % Absolute Granulocytes 4.00 (1.4-6.9) Basophils # 0.06 (0-0.4) Sodium 140 (137-145) mmol/L Potassium 5.4 H (3.5-5.1) mmol/L Chloride 108 H (98-107) mmol/L Carbon Dioxide 24 (22-30) mmol/L Anion Gap 12.6 (5-15) MEQ/L BUN 33 H (9-20) mg/dL Creatinine 1.68 H (0.66-1.25) mg/dL Estimated GFR 41.9 ML/MIN Glucose 98 (74-106) mg/dL Calcium 9.0 (8.4-10.2) mg/dL Magnesium 2.1 (1.6-2.3) mg/dL Total Bilirubin 0.40 (0.2-1.3) mg/dL AST 23 (17-59) U/L ALT 9 (0-50) U/L Alkaline Phosphatase 60 (38-126) U/L Serum Total Protein 6.7 (6.3-8.2) g/dL Albumin 3.9 (3.5-5.0) g/dL - Progress Progress: unchanged Progress Note: 07/26/21 09:03 CAT scan of the head without contrast shows no new/acute intracranial abnormalities. 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 07/26/21 09:45 Medical decision making: This patient has visual changes that were noticed this morning when he woke up. He went to bed without the fogginess in his vision of his left eye. He does present with hypertension. CAT scan of his head without contrast does not show any acute abnormality. This patient has chronic anemia and chronic renal insufficiency. Is not different than the levels that were present in December 2020. This patient needs inpatient management for his hypertensive urgency. He agrees with contacting the [facility]. If they accept him at that institution then he will be transferred to the [facility]. If they allow him to be admitted to this facility and our hospitalist accepts the patient we will admit him here. If our hospitalist will not accept we will contact [facility] followed by [facility] in [facility] for transfer/admission. 07/26/21 10:51 Medical decision making: Patient was reviewed with the hospitalist at [facility] at 1045 this morning. I reviewed the patient history, condition, emergency room work-up results as well as the interventions that we provided the patient. We gave updated vital signs as well. The patient is excepted for transfer to the [facility] in [place]. Counseled pt/family regarding: lab results, diagnosis, need for follow-up, rad results - Departure Departure Disposition: Transfer Clinical Impression: Vision changes, Hypertensive urgency, Renal insufficiency, Chronic anemia Condition: Fair Critical Care Time: No Referrals: ALLIE GUDINO MD [Primary Care Provider] -
[2021-07-26] MEDS ORDERED: VASOTEC I.V. 2.5 MG IV ONE ×4 (08:16→09:56)
[2021-07-26 08:44] LABS: Basophil (Absolute #) 0.06 (0-0.4); Eosinophil (Absolute #) 0.24 (0-0.5); Hematocrit 30.1 % (42-50); Hemoglobin 8.7 gm/dl (12.5-18.0); Lymphocyte (Absolute #) 1.17 (1.0-4.6); Lymphocytes % 19.4 % (24.0-44.0); Mean Corpuscular Hemoglobin 22.5 pg (26-32); Mean Corpuscular Hgb Concent. 28.9 g/dl (32-36); Mean Platelet Volume 10.2 fl (7.5-11.0); Monocyte (Absolute #) 0.55 (0.0-1.3); Monocytes % 9.1 % (0.0-12.0); Neutrophil % 66.5 % (36.0-66.0); Platelet Count 205 K/mm3 (150-450); Red Blood Count 3.86 M/mm3 (4.1-5.6); Red Cell Distribution Width 21.4 % (11.5-14.0)
[2021-07-26 08:54] LABS: ALBUMIN 3.9 g/dL (3.5-5.0); ANION GAP 12.6 MEQ/L (5-15); BILIRUBIN,TOTAL 0.4 mg/dL (0.2-1.3); Creatinine 1 1.68 mg/dL (0.66-1.25); EST GLOMERULAR FILTRATION RATE 41.9 ML/MIN; MAGNESIUM 2.1 mg/dL (1.6-2.3); Potassium 5.4 mmol/L (3.5-5.1); Total Protein 6.7 g/dL (6.3-8.2)
--- NOTE | 2021-07-26 08:58 | XRAY ---
Indication: Episode of left eye vision loss. Multiple contiguous axial images obtained through the head without contrast. Comparison: January 13, 2021. Again age-appropriate global atrophy. Grossly stable tiny remote infarct right basal ganglia and left posterior booker radiata. No acute intracranial hemorrhage, abnormal extra-axial fluid collection, or mass effect. Fourth ventricle is midline without hydrocephalus. Youssef-white matter differentiation maintained. Bony calvarium intact. Visualized paranasal sinuses and mastoid air cells are clear. Impression: Stable atrophy and tiny remote infarcts as detailed. No new/acute intracranial abnormalities.
[2021-07-26] MEDS ORDERED: APRESOLINE 20 MG/ML INJ IV PRN (10:45)
[2021-07-26] MEDS ORDERED: APRESOLINE 20 MG/ML INJ ONE (11:48)
[2021-07-26 12:13] VITALS: O2SAT 100
[2021-07-26 13:20] VITALS: PULSE 61
[2021-07-26 13:49] VITALS: BP 134/74
[2021-07-26 18:41] LABS: Slide Review 1 YES
== END 2021-07-26 13:35 ==
LOC: ED 07:49
DX: H53.9 Unspecified visual disturbance (principal); I16.0 Hypertensive urgency; N28.9 Disorder of kidney and ureter, unspecified; D64.89 Other specified anemias; I10 Essential (primary) hypertension; J44.9 Chronic obstructive pulmonary disease, unspecified; E78.00 Pure hypercholesterolemia, unspecified; E03.9 Hypothyroidism, unspecified; Z79.899 Other long term (current) drug therapy; Z86.73 Personal history of transient ischemic attack (TIA), and cerebral infarction without residual deficits; Z98.890 Other specified postprocedural states
CPT/HCPCS: 36000; 36415; 70450; 80053; 83735; 84436; 84443; 85025; 93005; 96374; 96376; 99284; J0360

== ENCOUNTER 2021-07-31 14:08 | Emergency (ER) | payer OTHER ==
[2021-07-31] MEDS ORDERED: APRESOLINE 20 MG/ML INJ ONE ×2 (16:28→18:54)
[2021-07-31 16:31] VITALS: O2SAT 98
[2021-07-31] MEDS ORDERED: APRESOLINE 20 MG/ML INJ IV ONE ×2 (16:32→18:53)
--- NOTE | 2021-07-31 17:06 | ERPHSYRPT ---
- History of Present Illness Time Seen by Provider: 07/31/21 14:24 Source: patient Exam Limitations: no limitations Patient Subjective Stated Complaint: PT states "I was here last sunday for the same thing. My left eye vision goes away, my blood pressure gets really high. [facility] just [facility] and said follow up with my family doctor. he cannot get me in until the ." Triage Nursing Assessment: PT presented alert and oriented X 3, skin pwd. Pt ambulates with a slightly unsteady gait. Pt able to speak in clear full sentences. Pt pupils are perrl. Pt speech clear, csm x 4 Physician History: 80 years old male with history of hypertension, hyperlipidemia, GERD, atrial fibrillation on Xarelto/pacemaker placement, hypothyroidism presented to the ER with decreased vision left eye since morning. Patient reports he went to bed normal and woke up this morning where he can hardly see anything from the left eye. It feels foggy as if there is a blood in front of it. Denies any pain in the eye itself. No headache, no focal numbness tingling or weakness. No difficulty speech. Reports having same symptoms 5 days ago for which she was initially evaluated here and then at [facility], relates it was probably due to high blood pressure. Currently patient blood pressure is in 170s. No chest pain palpitations or shortness of breath. Timing/Duration: today, constant, sudden Location: left eye Severity: severe Apparent Injury: no Associated Symptoms: redness, decreased vision, No pain, No sensitivity to light, No eyelid swelling, No foreign body sensation Visual Assistive Devices: Glasses, With Patient Chemical Exposure: No Trauma: No Welding Arc/Tanning Bed Exposure: No Allergies/Adverse Reactions: No Known Drug Allergies Allergy (Verified 07/26/21 08:10) Home Medications: Omeprazole 20 MG [Prilosec 20 mg] 20 mg PO DAILY 12/23/12 [History] Levothyroxine Sodium 100 Mcg [Synthroid 100 Mcg] 125 mcg PO DAILY 12/24/12 [History] Lisinopril/Hydrochlorothiazide [Lisinopril-Hctz 20-12.5 mg Tab] 1 tab PO DAILY 12/24/12 [History] Acetaminophen [Tylenol Extra Strength Arthrit] 500 mg PO Q4H PRN PRN 05/20/13 [History] Ipratropium/Albuterol Sulfate [Combivent Inhaler] 14.7 gm IH TID PRN 05/20/13 [History] dilTIAZem HCL [Diltiazem ER] 180 mg PO DAILY 07/10/16 [History] Atorvastatin Calcium 40 mg PO DAILY 07/26/21 [History] Rivaroxaban [Xarelto] 15 mg PO DAILY 07/26/21 [History] Hx Tetanus, Diphtheria Vaccination/Date Given: Yes Hx Influenza Vaccination/Date Given: Yes Hx Pneumococcal Vaccination/Date Given: Yes Immunizations Up to Date: Yes Travel Risk - International Travel Have you traveled outside of the country in past 3 weeks: No - Coronavirus Screening Are you exhibiting any of the following symptoms?: No Close contact with a COVID-19 positive Pt in past 14-21 Days: No - Vaccine Status Have you recieved a Covid-19 vaccination: Yes Body Technician/Painter: Jaree - Vaccination Dates Date of 2cond Vaccination (if applicable): 12/20/20 - Review of Systems Constitutional: No Symptoms Eyes: Eye Redness, Vision Changes Ears, Nose, & Throat: No Symptoms Respiratory: No Symptoms Cardiac: No Symptoms Abdominal/Gastrointestinal: No Symptoms Genitourinary Symptoms: No Symptoms Musculoskeletal: No Symptoms Skin: No Symptoms Neurological: Sensory Changes Psychological: No Symptoms Endocrine: No Symptoms Hematologic/Lymphatic: No Symptoms Immunological/Allergic: No Symptoms - Past Medical History Pertinent Past Medical History: Yes Neurological History: Migraines, TIA ENT History: Cataracts Cardiac History: Arrhythmia, High Cholesterol, Hypertension Respiratory History: COPD Endocrine Medical History: Adrenal Insufficiency, Hypothyroidism Musculoskeletal History: Osteoarthritis GI Medical History: GERD History: Other Psycho-Social History: No Pertinent History Male Reproductive Disorders: No Pertinent History Other Medical History: Pt sleeps with O2. some kidney insufficiency. HX afib - Past Surgical History Past Surgical History: Yes Neuro Surgical History: No Pertinent History Cardiac: Cardiac Catheterization Respiratory: No Pertinent History Gastrointestinal: Appendectomy Genitourinary: No Pertinent History Musculoskeletal: Orthopedic Surgery Male Surgical History: No Pertinent History Other Surgical History: left knee-bone chip removed, bilateral cataracts removed, R hand trigger finger release., left elbow - Social History Smoking Status: Former smoker Exposure to second hand smoke: No Drug Use: none Patient Lives Alone: Yes - Nursing Vital Signs Nursing Vital Signs: Initial Vital Signs Temperature 97.2 F 07/31/21 14:20 Pulse Rate 76 07/31/21 14:20 Respiratory Rate 20 07/31/21 14:20 Blood Pressure 142/82 07/31/21 14:20 O2 Sat by Pulse Oximetry 97 07/31/21 14:20 Pain Scale Pain Intensity 0 - Physical Exam General Appearance: no apparent distress, alert Vision Acuity Degree Evaluation Phase: Corrected Vision Acuity Left Eye: Hand waving Eye Exam: right eye: normal inspection, left eye: conjunctival hemorrhage, other (Nipple constriction, haziness in the posterior chamber), bilateral eye: EOMI Ears, Nose, Throat Exam: normal ENT inspection, TMs normal, pharynx normal Neck Exam: normal inspection, non-tender, supple, full range of motion Respiratory Exam: normal breath sounds, lungs clear Cardiovascular Exam: regular rate/rhythm, normal heart sounds Extremity Exam: normal inspection, normal range of motion Neurologic: alert, oriented x 3, cooperative, normal mood/affect, nml cerebellar function, No axle bearing polisher II-XII nml as tested Skin Exam: normal color SpO2 Interpretation: normal SpO2: 98 O2 Delivery: Room Air Ordered Tests: Medication Summary Discontinued Medications Generic Name Dose Route Start Last Admin Trade Name Freq PRN Reason Stop Dose Admin Hydralazine HCl Confirm 07/31/21 16:28 Apresoline 20 Mg/Ml Inj Administered 07/31/21 16:29 Dose 20 mg .ROUTE .STK-MED ONE Hydralazine HCl 10 mg 07/31/21 16:32 07/31/21 16:32 Apresoline 20 Mg/Ml Inj IV 07/31/21 16:33 10 mg STAT ONE Administration - Progress Progress: re-examined Progress Note: 07/31/21 17:06 80 years old is evaluated for left-sided visual changes to the point of chest and bathing. Patient blood pressure was elevated, given a dose of hydralazine. Patient had a similar symptoms less than a week ago with negative CT head. On reevaluation his pressure is improving and reports mild improvement in vision but still significant change from the right. Discussed with Dr. Lora at [facility] ophthalmology, reviewed history and exam findings, do not think patient needs to have any repeated scan, agreed with seeing patient at the [place] ER. Patient agreed with transfer. Counseled pt/family regarding: diagnosis, need for follow-up - Departure Departure Disposition: Transfer Clinical Impression: Hypertensive urgency, Vision changes Condition: Stable Critical Care Time: No Referrals: ALLIE GUDINO MD [Primary Care Provider] -
[2021-07-31 19:07] VITALS: BP 188/96; PULSE 68
== END 2021-07-31 19:12 | disposition short-term general hospital (02) ==
LOC: ED 14:08
DX: I16.0 Hypertensive urgency (principal); H53.9 Unspecified visual disturbance; I10 Essential (primary) hypertension; E78.5 Hyperlipidemia, unspecified; K21.9 Gastro-esophageal reflux disease without esophagitis; I48.91 Unspecified atrial fibrillation; E03.9 Hypothyroidism, unspecified; Z79.01 Long term (current) use of anticoagulants; Z79.899 Other long term (current) drug therapy
CPT/HCPCS: 96374; 96376; 99284; J0360

== ENCOUNTER 2022-01-21 10:22 | Observation (INO) | payer OTHER ==
[2022-01-21] MEDS ORDERED: Zofran 4 MG/2 ML VIAL IV ONE (10:28)
[2022-01-21] MEDS ORDERED: Sodium Chloride 0.9% 1000 ML 1,000 ML IV STA ×2 (10:28→11:44)
[2022-01-21 11:02] LABS: Absolute Neutrophil Ct (ANC) 5.75 (1.4-6.9); Basophil (Absolute #) 0.03 (0-0.4); Eosinophil % 0.7 % (0.00-5.0); Eosinophil (Absolute #) 0.05 (0-0.5); Hematocrit 35.4 % (42-50); Hemoglobin 10.1 gm/dl (12.5-18.0); Lymphocyte (Absolute #) 0.92 (1.0-4.6); Lymphocytes % 12.5 % (24.0-44.0); Mean Cell Volume 75.6 fl (78-100); Mean Corpuscular Hemoglobin 21.6 pg (26-32); Mean Corpuscular Hgb Concent. 28.5 g/dl (32-36); Mean Platelet Volume 11.1 fl (7.5-11.0); Monocyte (Absolute #) 0.61 (0.0-1.3); Monocytes % 8.3 % (0.0-12.0); Neutrophil % 78.1 % (36.0-66.0); Platelet Count 264 K/mm3 (150-450); Red Blood Count 4.68 M/mm3 (4.1-5.6); Red Cell Distribution Width 20.4 % (11.5-14.0); White Blood Count 7.4 K/mm3 (4.0-10.5)
[2022-01-21 11:08] LABS: INR 1.12 (0.8-3.0); PROTIME 13.2 SECONDS (9.4-12.5)
[2022-01-21 11:14] LABS: ALBUMIN 3.9 g/dL (3.5-5.0); ANION GAP 13.9 MEQ/L (5-15); BILIRUBIN,TOTAL 0.5 mg/dL (0.2-1.3); Calcium 8.1 mg/dL (8.4-10.2); Creatinine 1 2.83 mg/dL (0.66-1.25); EST GLOMERULAR FILTRATION RATE 22.9 ML/MIN; Potassium 3.9 mmol/L (3.5-5.1); Total Protein 6.9 g/dL (6.3-8.2)
--- NOTE | 2022-01-21 11:17 | ERPHSYRPT ---
- History of Present Illness Time Seen by Provider: 01/21/22 10:35 Source: patient, EMS Exam Limitations: no limitations Patient Subjective Stated Complaint: Pt states "I got eye surgery last and they put me on a new med and I haven't been eating cause the medicine doesn't make me hungry." Triage Nursing Assessment: Pt alert and oriented x3, pt's L eye lid bruised from previous eye surgery, pt recieved 500 mL of ns from ems, 18 g L wrist started per ems, fsbs 220 per ems Physician History: Patient is a 81-year-old who had a detached retina and had surgery since that time he has lost his appetite due to a new medicine which she does not know and as a result he has been getting care and weaker he is also not drinking any fluids according to EMS and the family. He denies any pain except his typical arthritis pain blood sugar is 220 and he does have a history of a pacemaker. We were later able to determine that it was acetazolamide that was causing his anorexia and loss of appetite Timing/Duration: day(s) (4) Modifying Factors: Improves With: other (Loss of appetite and weakness) Associated Symptoms: denies symptoms Allergies/Adverse Reactions: No Known Drug Allergies Allergy (Verified 07/26/21 08:10) Home Medications: Omeprazole 20 MG [Prilosec 20 mg] 20 mg PO DAILY 12/23/12 [History] Levothyroxine Sodium 100 Mcg [Synthroid 100 Mcg] 125 mcg PO DAILY 12/24/12 [History] Lisinopril/Hydrochlorothiazide [Lisinopril-Hctz 20-12.5 mg Tab] 1 tab PO DAILY 12/24/12 [History] Acetaminophen [Tylenol Extra Strength Arthrit] 500 mg PO Q4H PRN PRN 05/20/13 [History] Ipratropium/Albuterol Sulfate [Combivent Inhaler] 14.7 gm IH TID PRN 05/20/13 [History] dilTIAZem HCL [Diltiazem ER] 300 mg PO DAILY 07/10/16 [History] Atorvastatin Calcium 40 mg PO DAILY 07/26/21 [History] Rivaroxaban [Xarelto] 15 mg PO DAILY 07/26/21 [History] acetaZOLAMIDE [Acetazolamide 250 mg Tablet] 500 mg PO DAILY 01/21/22 [History] Hx Tetanus, Diphtheria Vaccination/Date Given: Yes Hx Influenza Vaccination/Date Given: Yes Hx Pneumococcal Vaccination/Date Given: Yes Immunizations Up to Date: Yes Travel Risk - International Travel Have you traveled outside of the country in past 3 weeks: No - Coronavirus Screening Are you exhibiting any of the following symptoms?: No Close contact with a COVID-19 positive Pt in past 14-21 Days: No - Vaccine Status Have you recieved a Covid-19 vaccination: Yes 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 - Vaccination Dates Date of 2cond Vaccination (if applicable): 12/20/20 - Review of Systems Constitutional: Lethargy, Weakness, Weight Loss, No Fever, No Chills Eyes: Other (Left eye appears to be sutured closed) Ears, Nose, & Throat: No Symptoms Respiratory: No Cough, No Dyspnea Cardiac: No Chest Pain, No Edema, No Syncope Abdominal/Gastrointestinal: No Abdominal Pain, No Nausea, No Vomiting, No Diarrhea Genitourinary Symptoms: No Dysuria Musculoskeletal: No Back Pain, No Neck Pain Skin: No Rash Neurological: No Dizziness, No Focal Weakness, No Sensory Changes Psychological: No Symptoms Endocrine: No Symptoms All Other Systems: Reviewed and Negative - Past Medical History Pertinent Past Medical History: Yes Neurological History: Migraines, TIA ENT History: Cataracts Cardiac History: Arrhythmia, High Cholesterol, Hypertension Respiratory History: COPD Endocrine Medical History: Adrenal Insufficiency, Hypothyroidism Musculoskeletal History: Osteoarthritis GI Medical History: GERD History: Other Psycho-Social History: No Pertinent History Male Reproductive Disorders: No Pertinent History Other Medical History: Pt sleeps with O2. some kidney insufficiency. HX afib - Past Surgical History Past Surgical History: Yes Neuro Surgical History: No Pertinent History Cardiac: Cardiac Catheterization Respiratory: No Pertinent History Gastrointestinal: Appendectomy Genitourinary: No Pertinent History Musculoskeletal: Orthopedic Surgery Male Surgical History: No Pertinent History Other Surgical History: left knee-bone chip removed, bilateral cataracts removed, R hand trigger finger release., left elbow - Social History Smoking Status: Former smoker Exposure to second hand smoke: No Drug Use: none Patient Lives Alone: Yes - Nursing Vital Signs Nursing Vital Signs: Initial Vital Signs Temperature 97.0 F 01/21/22 10:23 Pulse Rate 73 01/21/22 10:23 Respiratory Rate 17 01/21/22 10:23 Blood Pressure 113/57 01/21/22 10:23 O2 Sat by Pulse Oximetry 97 01/21/22 10:23 Pain Scale Pain Intensity 3 - Physical Exam General Appearance: mild distress, alert Eye Exam: other (Right eye appears normal left eye appears to be sutured closed) Ears, Nose, Throat Exam: normal ENT inspection, TMs normal, pharynx normal, moist mucous membranes Neck Exam: normal inspection, non-tender, supple, full range of motion Respiratory Exam: normal breath sounds, lungs clear, No respiratory distress Cardiovascular Exam: regular rate/rhythm, normal heart sounds, normal peripheral pulses Gastrointestinal/Abdomen Exam: soft, normal bowel sounds, No tenderness, No mass Back Exam: normal inspection, normal range of motion, No CVA tenderness, No vertebral tenderness Extremity Exam: normal inspection, normal range of motion, pelvis stable Neurologic Exam: alert, oriented x 3, cooperative, normal mood/affect, nml cerebellar function, nml station & gait, sensation nml, No motor deficits Skin Exam: normal color, warm, dry, No rash Lymphatic Exam: No adenopathy SpO2 Interpretation: normal SpO2: 97 O2 Delivery: Room Air - Course Nursing assessment & vital signs reviewed: Yes EKG Interpreted by Me: RATE (83), A-fib, NORMAL AXIS, Non-specific ST Changes - Radiology Exams Chest X-ray Interpretation: Interpreted by me (COPD) Abdomen X-ray Interpretation: Interpreted by me (Nonspecific bowel gas pattern) Ordered Tests: Active Orders 24 hr Category Date Time Status EKG-ER Only STAT Care 01/21/22 10:28 Active IV Insertion STAT Care 01/21/22 10:28 Active CHEST 1 VIEW (PORTABLE) Stat Exams 01/21/22 10:28 Taken KUB Stat Exams 01/21/22 10:28 Taken AMYLASE Stat Lab 01/21/22 10:45 Completed BLOOD CULTURE Stat Lab 01/21/22 10:55 Received CBC W DIFF Stat Lab 01/21/22 10:45 Completed CMP Stat Lab 01/21/22 10:45 Completed COVID AG-BINAX NOW RAPID TEST Stat Lab 01/21/22 10:45 Completed INFLUENZA A+B REBECCA Stat Lab 01/21/22 10:45 Completed LIPASE Stat Lab 01/21/22 10:45 Completed Lactic Acid Stat Lab 01/21/22 10:50 Completed PROTIME WITH INR Stat Lab 01/21/22 10:45 Completed TROPONIN Q3H Lab 01/21/22 10:45 Completed TROPONIN Q3H Lab 01/21/22 13:13 Completed TROPONIN Q3H Lab 01/21/22 16:30 Ordered TROPONIN Q3H Lab 01/21/22 19:30 Ordered TROPONIN Q3H Lab 01/21/22 22:30 Ordered UA W/RFX UR CULTURE Stat Lab 01/21/22 14:12 Completed Medication Summary Discontinued Medications Generic Name Dose Route Start Last Admin Trade Name Jessica PRN Reason Stop Dose Admin Sodium Chloride 1,000 mls @ 999 mls/hr 01/21/22 10:28 01/21/22 14:17 Sodium Chloride 0.9% 1000 Ml IV 01/21/22 11:28 Infused .Q1H1M STA Infusion Sodium Chloride Confirm 01/21/22 11:36 Sodium Chloride 0.9% 1000 Ml Administered 01/21/22 11:37 Dose 1,000 mls @ ud .ROUTE .STK-MED ONE Sodium Chloride 1,000 mls @ 999 mls/hr 01/21/22 11:44 01/21/22 14:29 Sodium Chloride 0.9% 1000 Ml IV 01/21/22 12:44 Infused .Q1H1M STA Infusion Sodium Chloride Confirm 01/21/22 12:13 Sodium Chloride 0.9% 1000 Ml Administered 01/21/22 12:14 Dose 1,000 mls @ ud .ROUTE .STK-MED ONE Ondansetron HCl 4 mg 01/21/22 10:28 01/21/22 11:38 Ondansetron Hcl 4 Mg/2 Ml Vial IV 01/21/22 10:29 4 mg STAT ONE Administration Ondansetron HCl Confirm 01/21/22 11:36 Ondansetron Hcl 4 Mg/2 Ml Vial Administered 01/21/22 11:37 Dose 4 mg .ROUTE .STK-MED ONE Lab/Rad Data: Laboratory Result Diagrams 01/21/22 10:45 01/21/22 10:45 Laboratory Results 01/21/22 01/21/22 01/21/22 Range/Units 14:12 13:13 10:50 WBC (4.0-10.5) K/mm3 RBC (4.1-5.6) M/mm3 Hgb (12.5-18.0) gm/dl Hct (42-50) % MCV (78-100) fl MCH (26-32) pg MCHC (32-36) g/dl RDW (11.5-14.0) % Plt Count (150-450) K/mm3 MPV (7.5-11.0) fl Gran % (36.0-66.0) % Eos # (Auto) (0-0.5) Absolute Lymphs (auto) (1.0-4.6) Absolute Monos (auto) (0.0-1.3) Lymphocytes % (24.0-44.0) % Monocytes % (0.0-12.0) % Eosinophils % (0.00-5.0) % Basophils % (0.0-0.4) % Absolute Granulocytes (1.4-6.9) Basophils # (0-0.4) PT (9.4-12.5) SECONDS INR (0.8-3.0) Sodium (137-145) mmol/L Potassium (3.5-5.1) mmol/L Chloride (98-107) mmol/L Carbon Dioxide (22-30) mmol/L Anion Gap (5-15) MEQ/L BUN (9-20) mg/dL Creatinine (0.66-1.25) mg/dL Estimated GFR ML/MIN Glucose (74-106) mg/dL Lactic Acid 1.5 (0.4-2.0) Calcium (8.4-10.2) mg/dL Total Bilirubin (0.2-1.3) mg/dL AST (17-59) U/L ALT (0-50) U/L Alkaline Phosphatase (38-126) U/L Troponin I 0.034 (0.000-0.034) ng/mL Serum Total Protein (6.3-8.2) g/dL Albumin (3.5-5.0) g/dL Amylase (30-110) U/L Lipase (23-300) U/L Urine Color YELLOW (YELLOW) Urine Appearance CLEAR (CLEAR) Urine pH 5.0 (5-6) Ur Specific [place] 1.010 (1.005-1.025) Urine Protein NEGATIVE (Negative) Urine Ketones NEGATIVE (NEGATIVE) Urine Blood NEGATIVE (0-5) Jacob/ul Urine Nitrite NEGATIVE (NEGATIVE) Urine Bilirubin NEGATIVE (NEGATIVE) Urine Urobilinogen NEGATIVE (0-1) mg/dL Ur Leukocyte Esterase NEGATIVE (NEGATIVE) Urine WBC (Auto) NONE (0-5) /HPF Urine RBC (Auto) NONE (0-2) /HPF U Epithel Cells (Auto) NONE (FEW) /HPF Urine Bacteria (Auto) NONE (NEGATIVE) /HPF Urine Mucus (Auto) SLIGHT (NEGATIVE) /HPF Urine Culture Reflexed NO (NO) Urine Glucose NEGATIVE (NEGATIVE) mg/dL Influenza Type A Ag (NEGATIVE) Influenza Type B Ag (NEGATIVE) SARS-CoV-2 Ag (Rapid) (NEGATIVE) Slides for Path Review 01/21/22 01/21/22 01/21/22 Range/Units 10:45 10:45 10:45 WBC (4.0-10.5) K/mm3 RBC (4.1-5.6) M/mm3 Hgb (12.5-18.0) gm/dl Hct (42-50) % MCV (78-100) fl MCH (26-32) pg MCHC (32-36) g/dl RDW (11.5-14.0) % Plt Count (150-450) K/mm3 MPV (7.5-11.0) fl Gran % (36.0-66.0) % Eos # (Auto) (0-0.5) Absolute Lymphs (auto) (1.0-4.6) Absolute Monos (auto) (0.0-1.3) Lymphocytes % (24.0-44.0) % Monocytes % (0.0-12.0) % Eosinophils % (0.00-5.0) % Basophils % (0.0-0.4) % Absolute Granulocytes (1.4-6.9) Basophils # (0-0.4) PT 13.2 H (9.4-12.5) SECONDS INR 1.12 (0.8-3.0) Sodium (137-145) mmol/L Potassium (3.5-5.1) mmol/L Chloride (98-107) mmol/L Carbon Dioxide (22-30) mmol/L Anion Gap (5-15) MEQ/L BUN (9-20) mg/dL Creatinine (0.66-1.25) mg/dL Estimated GFR ML/MIN Glucose (74-106) mg/dL Lactic Acid (0.4-2.0) Calcium (8.4-10.2) mg/dL Total Bilirubin (0.2-1.3) mg/dL AST (17-59) U/L ALT (0-50) U/L Alkaline Phosphatase (38-126) U/L Troponin I 0.041 H* (0.000-0.034) ng/mL Serum Total Protein (6.3-8.2) g/dL Albumin (3.5-5.0) g/dL Amylase (30-110) U/L Lipase (23-300) U/L Urine Color (YELLOW) Urine Appearance (CLEAR) Urine pH (5-6) Ur Specific [place] (1.005-1.025) Urine Protein (Negative) Urine Ketones (NEGATIVE) Urine Blood (0-5) Jacob/ul Urine Nitrite (NEGATIVE) Urine Bilirubin (NEGATIVE) Urine Urobilinogen (0-1) mg/dL Ur Leukocyte Esterase (NEGATIVE) Urine WBC (Auto) (0-5) /HPF Urine RBC (Auto) (0-2) /HPF U Epithel Cells (Auto) (FEW) /HPF Urine Bacteria (Auto) (NEGATIVE) /HPF Urine Mucus (Auto) (NEGATIVE) /HPF Urine Culture Reflexed (NO) Urine Glucose (NEGATIVE) mg/dL Influenza Type A Ag NEGATIVE (NEGATIVE) Influenza Type B Ag NEGATIVE (NEGATIVE) SARS-CoV-2 Ag (Rapid) NEGATIVE (NEGATIVE) Slides for Path Review 01/21/22 01/21/22 Range/Units 10:45 10:45 WBC 7.4 (4.0-10.5) K/mm3 RBC 4.68 (4.1-5.6) M/mm3 Hgb 10.1 L (12.5-18.0) gm/dl Hct 35.4 L (42-50) % MCV 75.6 L (78-100) fl MCH 21.6 L (26-32) pg MCHC 28.5 L (32-36) g/dl RDW 20.4 H (11.5-14.0) % Plt Count 264 (150-450) K/mm3 MPV 11.1 H (7.5-11.0) fl Gran % 78.1 H (36.0-66.0) % Eos # (Auto) 0.05 (0-0.5) Absolute Lymphs (auto) 0.92 L (1.0-4.6) Absolute Monos (auto) 0.61 (0.0-1.3) Lymphocytes % 12.5 L (24.0-44.0) % Monocytes % 8.3 (0.0-12.0) % Eosinophils % 0.7 (0.00-5.0) % Basophils % 0.4 (0.0-0.4) % Absolute Granulocytes 5.75 (1.4-6.9) Basophils # 0.03 (0-0.4) PT (9.4-12.5) SECONDS INR (0.8-3.0) Sodium 139 (137-145) mmol/L Potassium 3.9 (3.5-5.1) mmol/L Chloride 111 H (98-107) mmol/L Carbon Dioxide 18 L (22-30) mmol/L Anion Gap 13.9 (5-15) MEQ/L BUN 45 H (9-20) mg/dL Creatinine 2.83 H (0.66-1.25) mg/dL Estimated GFR 22.9 ML/MIN Glucose 129 H (74-106) mg/dL Lactic Acid (0.4-2.0) Calcium 8.1 L (8.4-10.2) mg/dL Total Bilirubin 0.50 (0.2-1.3) mg/dL AST 15 L (17-59) U/L ALT 9 (0-50) U/L Alkaline Phosphatase 76 (38-126) U/L Troponin I (0.000-0.034) ng/mL Serum Total Protein 6.9 (6.3-8.2) g/dL Albumin 3.9 (3.5-5.0) g/dL Amylase 73 (30-110) U/L Lipase 129 (23-300) U/L Urine Color (YELLOW) Urine Appearance (CLEAR) Urine pH (5-6) Ur Specific [place] (1.005-1.025) Urine Protein (Negative) Urine Ketones (NEGATIVE) Urine Blood (0-5) Jacob/ul Urine Nitrite (NEGATIVE) Urine Bilirubin (NEGATIVE) Urine Urobilinogen (0-1) mg/dL Ur Leukocyte Esterase (NEGATIVE) Urine WBC (Auto) (0-5) /HPF Urine RBC (Auto) (0-2) /HPF U Epithel Cells (Auto) (FEW) /HPF Urine Bacteria (Auto) (NEGATIVE) /HPF Urine Mucus (Auto) (NEGATIVE) /HPF Urine Culture Reflexed (NO) Urine Glucose (NEGATIVE) mg/dL Influenza Type A Ag (NEGATIVE) Influenza Type B Ag (NEGATIVE) SARS-CoV-2 Ag (Rapid) (NEGATIVE) Slides for Path Review YES - Progress Progress: improved Progress Note: 01/21/22 15:08 [facility] they okayed the [facility] here for hydration. Discussed with DrGauri: Rosey - Departure Departure Disposition: Observation Clinical Impression: Dehydration, Medication reaction, Anorexia Condition: Fair Critical Care Time: No Referrals: ALLIE GUDINO MD [Primary Care Provider] - Follow up/PCP as directed
[2022-01-21] MEDS ORDERED: Zofran 4 MG/2 ML VIAL ONE (11:36)
[2022-01-21] MEDS ORDERED: Sodium Chloride 0.9% 1000 ML 1,000 ML ONE ×2 (11:36→12:13)
[2022-01-21 12:11] LABS: INFLUENZA A NEGATIVE (NEGATIVE); INFLUENZA B NEGATIVE (NEGATIVE)
[2022-01-21 12:23] LABS: COVID AG -BINAX NOW RAPID TEST NEGATIVE (NEGATIVE)
[2022-01-21 12:32] LABS: Slide Review 1 YES
[2022-01-21 14:29] LABS: Appearance CLEAR (CLEAR); Bilirubin NEGATIVE (NEGATIVE); Blood NEGATIVE Ery/ul (0-5); Glucose NEGATIVE (NEGATIVE); Ketones NEGATIVE (NEGATIVE); Leukocyte Esterase NEGATIVE (NEGATIVE); Mucus SLIGHT /HPF (NEGATIVE); Nitrite NEGATIVE (NEGATIVE); Protein,Urine Dip NEGATIVE (Negative); Urobilinogen NEGATIVE mg/dL (0-1)
[2022-01-21] MEDS: Sodium Chloride 0.9% 1000 ML 1,000 ML IV SCH ×2 (15:36→23:03)
[2022-01-21 16:49] LABS: INFLUENZA A NEGATIVE (NEGATIVE); INFLUENZA B NEGATIVE (NEGATIVE); RESPIRATORY SYNCTIAL VIRUS NEGATIVE (Negative); SARS-CoV-2 Xpert Express NEGATIVE (NEGATIVE)
[2022-01-21] MEDS: Zofran 4 MG/2 ML VIAL IV PRN (18:16)
--- NOTE | 2022-01-21 18:49 | XRAY ---
Indication: Weakness. Anorexia. Comparison: January 13, 2021. Portable chest unchanged again hyperinflated and clear. Heart not enlarged again with left hilar calcified nodes and left pacemaker. Bony thorax intact again with mild osteopenia and degenerative changes. No new/acute findings.
--- NOTE | 2022-01-21 18:51 | XRAY ---
Indication: Weakness. Anorexia. Comparison: None KUB nonacute and nonobstructed with extensive scattered vascular calcifications. Solid organs unremarkable. Osseous structures intact with osteopenia and lower lumbar/left hip degenerative changes.
[2022-01-21] MEDS: PATIENT OWN MEDICATION OP SCH ×4 (20:28→21:23)
[2022-01-21] MEDS ORDERED: Lopressor 25MG Tab ONE (21:03)
[2022-01-21] MEDS: XARELTO 10 MG TABLET PO SCH (21:06)
[2022-01-21] MEDS ORDERED: Lopressor 50 MG PO SCH (22:00)
[2022-01-21] MEDS ORDERED: Protonix 40MG Tablet PO SCH (22:00)
[2022-01-22] MEDS: TYLENOL EXTRA STRENGTH 500 MG PO PRN ×2 (05:02→21:50)
[2022-01-22] MEDS ORDERED: Sodium Chloride 0.9% 1000 ML 1,000 ML ONE (05:06)
[2022-01-22] MEDS: Sodium Chloride 0.9% 1000 ML 1,000 ML IV SCH ×3 (05:07→17:34)
[2022-01-22] MEDS ORDERED: NON-FORMULARY ITEM (Ipratropium/Albuterol Sulfate [Combivent Inhaler] 14.7 GM Aer.W.Adap) IH PRN (08:03)
[2022-01-22] MEDS ORDERED: DUONEB 0.5-3 MG/3 ml Neb IH PRN (08:09)
[2022-01-22 08:37] LABS: ANION GAP 9.7 MEQ/L (5-15); Creatinine 1 1.9 mg/dL (0.66-1.25); EST GLOMERULAR FILTRATION RATE 36.3 ML/MIN; Potassium 3.7 mmol/L (3.5-5.1)
[2022-01-22] MEDS: PATIENT OWN MEDICATION OP SCH ×17 (09:31→22:10)
[2022-01-22] MEDS: Lopressor 25MG Tab PO SCH ×2 (09:40→22:04)
[2022-01-22] MEDS: CLARITIN 10 MG PO SCH (09:40)
[2022-01-22] MEDS: Zestril 20 MG PO SCH (09:40)
[2022-01-22] MEDS: Zocor 10MG PO SCH (09:40)
[2022-01-22] MEDS: Protonix 40MG Tablet PO SCH ×2 (09:40→21:51)
[2022-01-22] MEDS: SYNTHROID 112 MCG PO SCH (09:40)
[2022-01-22] MEDS: Cardizem CD 300 MG PO SCH (09:41)
[2022-01-22] MEDS ORDERED: ZOCOR 20MG PO SCH (10:00)
[2022-01-22] MEDS ORDERED: NON-FORMULARY ITEM (Prednisolone Acetate/Pf [Prednisolone Acet 1% Eye Drop] 5 ML Drops.Sus OP SCH (10:00)
[2022-01-22] MEDS ORDERED: DILTIAZEM HCL 120 MG PO SCH (10:00)
[2022-01-22] MEDS ORDERED: LIPITOR 40MG PO SCH (10:00)
[2022-01-22] MEDS ORDERED: Xalatan OP SCH (10:00)
--- NOTE | 2022-01-22 15:02 | PCM.HP ---
History of Present Illness - Chief Complaint Chief Complaint: anorexia, dehydration History of Present Illness: is a 81 year old male pt of Dr. Danielson at the [facility] in and also a patient of Dr. Daniels. He apparently had retinal detachment and surgery on 01/12/22 on the L eye and was put on diamox 500mg po BID. He was having anorexia and was decreased to 1 po daily but continued to feel poorly. He says he didn't eat for the past 1-2 weeks (after surgery). Denied fever. Had diarrhea x 1 yesterday but no vomiting. He was found to have a creatinine of 2.83 (which had been nearly normal according to the previous labs we have). The [facility] doctor [facility] and was [facility] it was ok to admit the patient here and to hold his acetazolamide. He was able to eat last night, had a good supper. I spoke with the technical solutions consultant postal service sectional center manager at [facility], who states he would NOT have b een the one to do the retinal surgery, but he noted the pt should be able to stay off the diamox until he follows up with his opthalmologist. - Review of Systems Eyes: Eye Pain (on L, resolved with Tylenol) Abdominal/Gastrointestinal: Diarrhea (x1 yesterday), Appetite Changes Neurological: Other (syncope several times since the surgery, momentary. Last episode yesterday.) All Other Systems: Reviewed and Negative Medications & Allergies Home Medications: Home Medication List Omeprazole 20 MG [Prilosec 20 mg] 40 mg PO BID 12/23/12 [History Confirmed 01/21/22] Levothyroxine Sodium 100 Mcg [Synthroid 100 Mcg] 112 mcg PO DAILY 12/24/12 [History Confirmed 01/21/22] Acetaminophen [Tylenol Extra Strength Arthrit] 500 mg PO Q4H PRN PRN 05/20/13 [History Confirmed 01/21/22] Ipratropium/Albuterol Sulfate [Combivent Inhaler] 14.7 gm IH TID PRN 05/20/13 [History Confirmed 01/21/22] dilTIAZem HCL [Diltiazem ER] 300 mg PO DAILY 07/10/16 [History Confirmed 01/21/22] Atorvastatin Calcium 40 mg PO DAILY 07/26/21 [History Confirmed 01/21/22] Rivaroxaban [Xarelto] 15 mg PO EVENING MEAL 07/26/21 [History Confirmed 01/21/22] Brimonidine Tartrate/Timolol [Brimonidine-Timolol 0.2%-0.5%] 1 drop OP TID 01/21/22 [History Confirmed 01/21/22] Dorzolamide HCl/Timolol Maleat [Dorzolamide-Timolol Eye Drops] 1 drop OP TID 01/21/22 [History Confirmed 01/21/22] Latanoprost/Pf [Latanoprost 0.005% Eye Drop] 1 drop OP EVENING MEAL 01/21/22 [History Confirmed 01/21/22] Lisinopril 20 mg [Zestril 20 MG] 40 mg PO DAILY 01/21/22 [History Confirmed 01/21/22] Loratadine 10 mg PO DAILY 01/21/22 [History Confirmed 01/21/22] Metoprolol Tartrate 25 mg PO BID 01/21/22 [History Confirmed 01/21/22] Moxifloxacin HCl [Vigamox] 1 drop OP TID 01/21/22 [History Confirmed 01/21/22] Non-Formulary Drug [Non-Formulary Item] 1 drop OP DAILY 01/21/22 [History Co nfirmed 01/21/22] Non-Formulary Drug [Non-Formulary Item] 1 each PO DAILY 01/21/22 [History Confirmed 01/21/22] Prednisolone Acetate [Pred Forte] 1 drop OP DAILY 01/21/22 [History Confirmed 01/21/22] Prednisolone Acetate/Pf [Prednisolone Acet 1% Eye Drop] 1 drop OP QID 01/21/22 [History Confirmed 01/21/22] acetaZOLAMIDE [Acetazolamide 250 mg Tablet] 500 mg PO DAILY 01/21/22 [History Confirmed 01/21/22] Allergies/Adverse Reactions: Allergies Allergy/AdvReac Type Severity Reaction Status Date / Time No Known Drug Allergies Allergy Verified 07/26/21 08:10 - Past Medical History Past Medical History: Yes Neurological History: Migraines, TIA ENT History: Cataracts, Other Cardiac History: Arrhythmia, High Cholesterol, Hypertension Respiratory History: COPD Endocrine Medical History: Adrenal Insufficiency, Hypothyroidism Musculoskelatal History: Osteoarthritis GI Medical History: GERD History: Other Pyscho-Social History: No Pertinent History Male Reproductive Disorders: No Pertinent History Comment: Pt sleeps with O2. some kidney insufficiency. HX afib - Past Surgical History Past Surgical History: Yes Neuro Surgical History: No Pertinent History Cardiac History: Cardiac Catheterization Respiratory Surgery: No Pertinent History GI Surgical History: Appendectomy Genitourinary Surgical Hx: No Pertinent History Musculskeletal Surgical Hx: Orthopedic Surgery Male Surgical History: No Pertinent History Other Surgical History: left knee-bone chip removed, bilateral cataracts removed, R hand trigger finger release., left elbow - Social History Smoking Status: Former smoker Exposure to second hand smoke: No Alcohol: Occasionally Drug Use: none - Physical Exam Vital Signs: Vital Signs - 24 hr Temp Pulse Resp BP Pulse Ox 01/22/22 11:37 98.2 F 55 L 16 132/57 96 01/22/22 07:27 98.6 F 82 16 165/72 98 01/22/22 07:07 99 01/22/22 03:39 98.2 F 61 15 144/70 98 01/22/22 00:00 98.4 F 81 16 110/58 98 01/21/22 19:30 97 01/21/22 19:10 97.8 F 71 20 132/60 97 01/21/22 17:04 97.9 F 87 16 129/94 96 01/21/22 16:56 97.9 F 87 16 129/94 96 01/21/22 15:26 72 17 109/50 98 01/21/22 15:09 97 General Appearance: no apparent distress, alert Neurologic Exam: oriented x 3, cooperative Eye Exam: other (Pt holds L eye shut.) Ears, Nose, Throat Exam: moist mucous membranes Neck Exam: normal inspection, non-tender, No lymphadenopathy, No thyromegaly Respiratory Exam: normal breath sounds, lungs clear, No crackles/rales, No rhonchi, No wheezing Cardiovascular Exam: regular rate/rhythm, normal heart sounds, No murmur Gastrointestinal/Abdomen Exam: soft, normal bowel sounds, No tenderness, No distention, No mass, No guarding, No rebound Back Exam: normal inspection, No rash Extremity Exam: normal inspection, No pedal edema, No swelling Skin Exam: normal color, warm, dry, No rash Results - Labs Lab/Micro Results: Lab Results-Last 24 Hours 01/21/22 01/21/22 01/21/22 Range/Units 15:40 16:00 19:42 Sodium (137-145) mmol/L Potassium (3.5-5.1) mmol/L Chloride (98-107) mmol/L Carbon Dioxide (22-30) mmol/L Anion Gap (5-15) MEQ/L BUN (9-20) mg/dL Creatinine (0.66-1.25) mg/dL Estimated GFR ML/MIN Glucose (74-106) mg/dL Calcium (8.4-10.2) mg/dL Troponin I 0.032 0.033 (0.000-0.034) ng/mL Influenza Type A Ag NEGATIVE (NEGATIVE) Influenza Type B Ag NEGATIVE (NEGATIVE) RSV (PCR) NEGATIVE (Negative) SARS-CoV-2 (PCR) NEGATIVE (NEGATIVE) 01/21/22 01/22/22 Range/Units 22:21 07:55 Sodium 140 (137-145) mmol/L Potassium 3.7 (3.5-5.1) mmol/L Chloride 118 H (98-107) mmol/L Carbon Dioxide 16 L* (22-30) mmol/L Anion Gap 9.7 (5-15) MEQ/L BUN 35 H (9-20) mg/dL Creatinine 1.90 H (0.66-1.25) mg/dL Estimated GFR 36.3 ML/MIN Glucose 112 H (74-106) mg/dL Calcium 8.0 L (8.4-10.2) mg/dL Troponin I 0.032 (0.000-0.034) ng/mL Influenza Type A Ag (NEGATIVE) Influenza Type B Ag (NEGATIVE) RSV (PCR) (Negative) SARS-CoV-2 (PCR) (NEGATIVE) - Radiology Impressions Radiology Exams & Impressions: Radiology Procedures Category Date Time Status CHEST 1 VIEW (PORTABLE) Stat Exams 01/21/22 10:28 Completed KUB Stat Exams 01/21/22 10:28 Completed - Other Procedures and Tests Respiratory Therapy 01/21/22 19:31 Oxygen Nasal Cannula 2 lpm Assessment/Plan (1) Anorexia Current Visit: Yes Status: Acute Assessment & Plan: Most likely due to diamox; has resolved. I spoke with the on-call ophtho at [facility] and he said OK to hold the diamox until f/u with retinal specialist, which should be this week. Code(s): R63.0 - ANOREXIA (2) Syncope Current Visit: Yes Status: Acute Qualifiers: Syncope type: unspecified Qualified Code(s): R55 - Syncope and collapse Assessment & Plan: I don't think he mentioned this in the ER; I didn't hear of it until we were going through ROS. May certainly just be due to the dehydration, but will do CT head tonight and leave question of further workup for Dr. Daniels in the morning. Code(s): R55 - SYNCOPE AND COLLAPSE (3) Metabolic acidosis Current Visit: Yes Status: Acute Assessment & Plan: I think likely due to the diamox. On IV fluids - rechec in a.m. Code(s): E87.2 - ACIDOSIS (4) Dehydration Current Visit: Yes Status: Acute Code(s): E86.0 - DEHYDRATION (5) Medication reaction Current Visit: Yes Status: Acute Qualifiers: Encounter type: initial encounter Qualified Code(s): T50.905A - Adverse effect of unspecified drugs, medicaments and biological substances, initial encounter Code(s): T50.905A - ADVERSE EFFECT OF UNSP DRUG/MEDS/BIOL SUBST, INIT (6) Acute renal injury Current Visit: Yes Status: Acute Code(s): N17.9 - ACUTE KIDNEY FAILURE, UNSPECIFIED
[2022-01-22] MEDS: XARELTO 10 MG TABLET PO SCH (17:33)
--- NOTE | 2022-01-22 19:17 | XRAY ---
Indication: Syncope. Status post left orbit retina repair one week ago. Multiple contiguous axial images obtained through the head without contrast. Comparison: July 26, 2021 Again age-appropriate global atrophy, minimal periventricular degenerative microvascular ischemia, and remote infarct right basal ganglia. No acute intracranial hemorrhage, abnormal extra-axial fluid collection, or mass effect. Fourth ventricle is midline without hydrocephalus. Youssef-white matter differentiation preserved. Bony calvarium intact. Paranasal sinuses and mastoid air cells are clear. Left orbit is now dense presume related to patient's surgery. Impression: 1. 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 2. New finding dense left orbit presumed related to patient's surgery. Comment: Preliminary interpretation made by [facility]. No critical discrepancy.
[2022-01-23] MEDS: Sodium Chloride 0.9% 1000 ML 1,000 ML IV SCH (01:04)
[2022-01-23 06:11] LABS: Absolute Neutrophil Ct (ANC) 4.43 (1.4-6.9); Basophil (Absolute #) 0.04 (0-0.4); Eosinophil % 4.1 % (0.00-5.0); Hematocrit 28.3 % (42-50); Hemoglobin 8.2 gm/dl (12.5-18.0); Lymphocyte (Absolute #) 1.92 (1.0-4.6); Lymphocytes % 26.1 % (24.0-44.0); Mean Cell Volume 75.5 fl (78-100); Mean Corpuscular Hemoglobin 21.9 pg (26-32); Monocyte (Absolute #) 0.67 (0.0-1.3); Monocytes % 9.1 % (0.0-12.0); Neutrophil % 60.2 % (36.0-66.0); Platelet Count 216 K/mm3 (150-450); Red Blood Count 3.75 M/mm3 (4.1-5.6); Red Cell Distribution Width 20.6 % (11.5-14.0); White Blood Count 7.4 K/mm3 (4.0-10.5)
[2022-01-23] MEDS: TYLENOL EXTRA STRENGTH 500 MG PO PRN ×2 (06:27→22:33)
[2022-01-23 06:29] LABS: ANION GAP 8.4 MEQ/L (5-15); BILIRUBIN,TOTAL 0.3 mg/dL (0.2-1.3); Calcium 7.8 mg/dL (8.4-10.2); Creatinine 1 1.7 mg/dL (0.66-1.25); EST GLOMERULAR FILTRATION RATE 41.2 ML/MIN; Potassium 3.5 mmol/L (3.5-5.1); Total Protein 5.7 g/dL (6.3-8.2)
[2022-01-23] MEDS: Lopressor 25MG Tab PO SCH ×2 (06:30→22:33)
[2022-01-23 08:17] LABS: Slide Review 1 YES
[2022-01-23] MEDS ORDERED: NORCO 5/325 MG PO PRN (08:57)
--- NOTE | 2022-01-23 09:00 | PCM.NOTE ---
Date and Time: 01/23/22 0858 Subjective Assessment: patient is stable today, still has significant pain to left eye and appetite is poor, he is very weak Objective Exam General Appearance: no apparent distress Neurologic Exam: alert, oriented x 3, cooperative Eye Exam: other (bruising to left eye) Respiratory Exam: normal breath sounds, lungs clear, No respiratory distress Cardiovascular Exam: regular rate/rhythm, normal heart sounds Gastrointestinal/Abdomen Exam: soft, No tenderness, No mass OBJECTIVE DATA Vital Signs: Vital Signs - 24 hr Temp Pulse Resp BP Pulse Ox 01/23/22 07:20 92 L 01/23/22 07:00 97.9 F 70 16 188/77 94 L 01/23/22 03:46 97.5 F 68 18 167/73 97 01/23/22 00:00 97.9 F 60 18 141/62 94 L 01/22/22 20:00 96.9 F 61 18 121/59 97 01/22/22 19:22 94 L 01/22/22 16:00 97.9 F 62 16 105/60 95 01/22/22 11:37 98.2 F 55 L 16 132/57 96 Pain Assessment - Last Documented Pain Intensity 3 Pain Scale Used 0-10 Pain Scale Intake and Output: Intake & Output 01/20/22 01/21/22 01/22/22 01/23/22 11:59 11:59 11:59 11:59 Intake Total 3800 4763 Output Total 1960 950 Balance 1840 3813 Weight 81.1 kg 84 kg 84 kg Lab Results: Lab Results-Last 24 Hours 01/23/22 01/23/22 Range/Units 05:30 05:30 WBC 7.4 (4.0-10.5) K/mm3 RBC 3.75 L (4.1-5.6) M/mm3 Hgb 8.2 L (12.5-18.0) gm/dl Hct 28.3 L (42-50) % MCV 75.5 L (78-100) fl MCH 21.9 L (26-32) pg MCHC 29.0 L (32-36) g/dl RDW 20.6 H (11.5-14.0) % Plt Count 216 (150-450) K/mm3 Gran % 60.2 (36.0-66.0) % Eos # (Auto) 0.30 (0-0.5) Absolute Lymphs (auto) 1.92 (1.0-4.6) Absolute Monos (auto) 0.67 (0.0-1.3) Lymphocytes % 26.1 (24.0-44.0) % Monocytes % 9.1 (0.0-12.0) % Eosinophils % 4.1 (0.00-5.0) % Basophils % 0.5 (0.0-0.4) % Absolute Granulocytes 4.43 (1.4-6.9) Basophils # 0.04 (0-0.4) Sodium 141 (137-145) mmol/L Potassium 3.5 (3.5-5.1) mmol/L Chloride 120 H (98-107) mmol/L Carbon Dioxide 15 L* (22-30) mmol/L Anion Gap 8.4 (5-15) MEQ/L BUN 26 H (9-20) mg/dL Creatinine 1.70 H (0.66-1.25) mg/dL Estimated GFR 41.2 ML/MIN Glucose 106 (74-106) mg/dL Calcium 7.8 L (8.4-10.2) mg/dL Total Bilirubin 0.30 (0.2-1.3) mg/dL AST 19 (17-59) U/L ALT 13 (0-50) U/L Alkaline Phosphatase 62 (38-126) U/L Serum Total Protein 5.7 L (6.3-8.2) g/dL Albumin 3.0 L (3.5-5.0) g/dL Slides for Path Review YES Radiology Exams: Radiology Procedures Category Date Time Status CHEST 1 VIEW (PORTABLE) Stat Exams 01/21/22 10:28 Completed HEAD WITHOUT CONTRAST [CT] Routine Exams 01/22/22 15:27 Completed KUB Stat Exams 01/21/22 10:28 Completed Assessment/Plan (1) Acute renal injury Current Visit: Yes Status: Acute Assessment & Plan: improving, continue IV fluids Code(s): N17.9 - ACUTE KIDNEY FAILURE, UNSPECIFIED (2) Anorexia Current Visit: Yes Status: Acute Code(s): R63.0 - ANOREXIA (3) Dehydration Current Visit: Yes Status: Acute Code(s): E86.0 - DEHYDRATION (4) Metabolic acidosis Current Visit: Yes Status: Acute Code(s): E87.2 - ACIDOSIS
[2022-01-23] MEDS: NORCO 5/325 MG PO PRN ×2 (09:29→19:16)
[2022-01-23] MEDS: Dextrose 5%-1/4NS IV Soln. 1000 ML 1,000 ML IV SCH ×2 (09:29→22:34)
[2022-01-23] MEDS: CLARITIN 10 MG PO SCH (09:30)
[2022-01-23] MEDS: Protonix 40MG Tablet PO SCH ×2 (09:30→22:33)
[2022-01-23] MEDS: Cardizem CD 300 MG PO SCH (09:30)
[2022-01-23] MEDS: Zestril 20 MG PO SCH (09:31)
[2022-01-23] MEDS: Zocor 10MG PO SCH (09:31)
[2022-01-23] MEDS: SYNTHROID 112 MCG PO SCH (09:31)
[2022-01-23] MEDS: PATIENT OWN MEDICATION OP SCH ×15 (09:31→22:36)
[2022-01-23] MEDS: Miralax Powder 17GM PACKET PO SCH (09:43)
[2022-01-23] MEDS: XARELTO 10 MG TABLET PO SCH (18:08)
[2022-01-24] MEDS: NORCO 5/325 MG PO PRN ×2 (02:48→17:01)
[2022-01-24 04:47] LABS: Absolute Neutrophil Ct (ANC) 5.59 (1.4-6.9); Basophil (Absolute #) 0.07 (0-0.4); Eosinophil % 4.5 % (0.00-5.0); Eosinophil (Absolute #) 0.38 (0-0.5); Hematocrit 26.9 % (42-50); Hemoglobin 7.9 gm/dl (12.5-18.0); Lymphocytes % 17.8 % (24.0-44.0); Mean Cell Volume 75.4 fl (78-100); Mean Corpuscular Hemoglobin 22.1 pg (26-32); Mean Corpuscular Hgb Concent. 29.4 g/dl (32-36); Mean Platelet Volume 10.8 fl (7.5-11.0); Monocyte (Absolute #) 0.91 (0.0-1.3); Monocytes % 10.8 % (0.0-12.0); Neutrophil % 66.1 % (36.0-66.0); Platelet Count 211 K/mm3 (150-450); Red Blood Count 3.57 M/mm3 (4.1-5.6); Red Cell Distribution Width 20.6 % (11.5-14.0); White Blood Count 8.5 K/mm3 (4.0-10.5)
[2022-01-24 05:11] LABS: ANION GAP 10.1 MEQ/L (5-15); Calcium 8.1 mg/dL (8.4-10.2); Creatinine 1 1.6 mg/dL (0.66-1.25); EST GLOMERULAR FILTRATION RATE 44.2 ML/MIN; MAGNESIUM 1.8 mg/dL (1.6-2.3); Potassium 3.6 mmol/L (3.5-5.1)
[2022-01-24 05:48] LABS: Slide Review 1 YES
[2022-01-24] MEDS ORDERED: APRESOLINE 20 MG/ML INJ IV PRN (06:40)
[2022-01-24] MEDS: Zofran 4 MG/2 ML VIAL IV PRN (08:03)
[2022-01-24] MEDS: TYLENOL EXTRA STRENGTH 500 MG PO PRN ×2 (08:03→13:36)
[2022-01-24] MEDS: SYNTHROID 112 MCG PO SCH (09:06)
[2022-01-24] MEDS: Lopressor 25MG Tab PO SCH (09:06)
[2022-01-24] MEDS: Protonix 40MG Tablet PO SCH (09:06)
[2022-01-24] MEDS: Zestril 20 MG PO SCH (09:06)
[2022-01-24] MEDS: Cardizem CD 300 MG PO SCH (09:06)
[2022-01-24] MEDS: CLARITIN 10 MG PO SCH (09:06)
[2022-01-24] MEDS: Zocor 10MG PO SCH (09:06)
[2022-01-24] MEDS: PATIENT OWN MEDICATION OP SCH ×11 (09:08→17:04)
[2022-01-24] MEDS: Miralax Powder 17GM PACKET PO SCH (09:11)
[2022-01-24] MEDS ORDERED: K-LYTE 25 MEQ PO ONE (10:11)
--- NOTE | 2022-01-24 12:51 | PCM.DS ---
Discharge Summary Date of Admission: 01/21/22 16:35 Admitting Physician: ROSY DELGADILLO Primary Care Provider: ALLIE GUDINO Allergies Allergies No Known Drug Allergies Allergy (Verified 07/26/21 08:10) Hospital Summary - Hospital Course Hospital Course: Pt is 81 yo male pt who was admitted with n/v/anorexia after being placed on carbonic anhydrase inhibitor after retinal detachment surgery. Spurger poorly yesterday as well but feeling much better today. He has been eating well. Eye pain is less. Per Ophtho (UAP) ok to stay off the med until he follows up with his eye doctor, which should be this week. - Vitals & Intake/Output Vital Signs: Vital Signs Temperature 97.7 F 01/24/22 11:53 Pulse Rate 76 01/24/22 11:53 Respiratory Rate 20 01/24/22 11:53 Blood Pressure 145/65 01/24/22 11:53 O2 Sat by Pulse Oximetry 94 L 01/24/22 11:53 Intake & Output: Intake & Output 01/22/22 01/23/22 01/24/22 01/25/22 11:59 11:59 11:59 11:59 Intake Total 3800 5143 2774 Output Total 1960 1650 1600 Balance 1840 3493 1174 Weight 84 kg 84 kg 84.4 kg - Lab Result Diagrams: 01/24/22 04:15 01/24/22 04:15 Lab Results-Last 24 Hrs: Lab Results-Last 24 Hours 01/24/22 01/24/22 Range/Units 04:15 04:15 WBC 8.5 (4.0-10.5) K/mm3 RBC 3.57 L (4.1-5.6) M/mm3 Hgb 7.9 L (12.5-18.0) gm/dl Hct 26.9 L (42-50) % MCV 75.4 L (78-100) fl MCH 22.1 L (26-32) pg MCHC 29.4 L (32-36) g/dl RDW 20.6 H (11.5-14.0) % Plt Count 211 (150-450) K/mm3 MPV 10.8 (7.5-11.0) fl Gran % 66.1 H (36.0-66.0) % Eos # (Auto) 0.38 (0-0.5) Absolute Lymphs (auto) 1.50 (1.0-4.6) Absolute Monos (auto) 0.91 (0.0-1.3) Lymphocytes % 17.8 L (24.0-44.0) % Monocytes % 10.8 (0.0-12.0) % Eosinophils % 4.5 (0.00-5.0) % Basophils % 0.8 (0.0-0.4) % Absolute Granulocytes 5.59 (1.4-6.9) Basophils # 0.07 (0-0.4) Sodium 138 (137-145) mmol/L Potassium 3.6 (3.5-5.1) mmol/L Chloride 113 H (98-107) mmol/L Carbon Dioxide 18 L (22-30) mmol/L Anion Gap 10.1 (5-15) MEQ/L BUN 20 (9-20) mg/dL Creatinine 1.60 H (0.66-1.25) mg/dL Estimated GFR 44.2 ML/MIN Glucose 124 H (74-106) mg/dL Calcium 8.1 L (8.4-10.2) mg/dL Magnesium 1.8 (1.6-2.3) mg/dL Slides for Path Review YES Micro Results-Entire Visit: Microbiology 01/21/22 10:55 Blood Culture - Preliminary Blood NO GROWTH TO DATE 01/21/22 10:45 Blood Culture - Preliminary Blood NO GROWTH TO DATE - Radiology Exams Ordered Rad Exams-Entire Visit: Radiology Procedures Category Date Time Status HEAD WITHOUT CONTRAST [CT] Routine Exams 01/22/22 15:27 Completed - Procedures and Test Procedures and Tests throughout Hospitalization: Therapy Orders & Screens 01/21/22 17:41 PT Screen per Nursing Assess ONCE Comment: Protocol Order Physician Instructions: Greater than 3 points order PT Admission Screenin Reason For Exam: Triggered on Admission Diagnosis: anorexia, dehydration Open Wound/Cellutlitis/Pressure Ulcers: No Acute Fx/ORIF/Change in wt bearing status: No Severe MUSCULOSKELETAL pain: No ADL Dysfunction: Yes Acute CVA w/Hemiparesis/Hemiplegia: No Decreased Functional Mobility/Strength: Yes Sprain/Strain: No Acute Post-op Mobility Dysfunction: No Total Points: 4 01/21/22 19:31 Oxygen Nasal Cannula 2 lpm Comment: Diagnosis: anorexia, dehydration 01/23/22 09:00 PT Eval & Treat (MD Order) ONCE Reason for Eval:: weakness, unsteady gait Diagnosis: anorexia, dehydration Discharge Exam General Appearance: no apparent distress, alert Neurologic Exam: alert, oriented x 3, cooperative Eye Exam: other (L eye mild erythema in sclera; can open about 1/2 way, no overt edema. no exudate) Ears, Nose, Throat Exam: moist mucous membranes Neck Exam: normal inspection Respiratory Exam: diminished breath sounds (good air exchange), rhonchi (faint LLL), No crackles/rales, No wheezing Cardiovascular Exam: regular rate/rhythm, normal heart sounds, No murmur Gastrointestinal/Abdomen Exam: soft, normal bowel sounds, No tenderness, No distention, No mass, No guarding, No rebound Extremity Exam: normal inspection, No pedal edema, No swelling Skin Exam: normal color, warm, dry, No rash Final Diagnosis/Problem List - Final Discharge Diagnosis/Problem (1) Anorexia Current Visit: Yes Status: Resolved Code(s): R63.0 - ANOREXIA (2) Syncope Current Visit: Yes Status: Resolved Assessment & Plan: Likely due to volume depletion but workup done here Code(s): R55 - SYNCOPE AND COLLAPSE (3) Metabolic acidosis Current Visit: Yes Status: Acute Assessment & Plan: Resolving; likely due to carbonic anhydrase inhibitor. f/u with BMP in 1 week, and fu with Dr. Gudino in 1 week. Code(s): E87.2 - ACIDOSIS (4) Dehydration Current Visit: Yes Status: Resolved Code(s): E86.0 - DEHYDRATION (5) Medication reaction Current Visit: Yes Status: Acute Code(s): T50.905A - ADVERSE EFFECT OF UNSP DRUG/MEDS/BIOL SUBST, INIT (6) Acute renal injury Current Visit: Yes Status: Acute Assessment & Plan: improved; in Dec 2021 eGFR was 45. Code(s): N17.9 - ACUTE KIDNEY FAILURE, UNSPECIFIED - Discharge Disposition: Home, Self-Care Condition: Good Prescriptions: New Hydrocodone/Acetaminophen [Hydrocodone-Acetamin 5-325 mg] 1 tab PO Q6HPRN PRN #10 tablet MDD 4 PRN Reason: Pain Ondansetron ODT 4 MG [Zofran Odt 4 mg] 4 mg PO Q6H PRN PRN #10 tab PRN Reason: Nausea Continue Omeprazole 20 MG [Prilosec 20 mg] 40 mg PO BID Levothyroxine Sodium 100 Mcg [Synthroid 100 Mcg] 112 mcg PO DAILY Ipratropium/Albuterol Sulfate [Combivent Inhaler] 14.7 gm IH TID PRN PRN Reason: Shortness Of Breath/Wheezing Acetaminophen [Tylenol Extra Strength Arthrit] 500 mg PO Q4H PRN PRN PRN Reason: Pain dilTIAZem HCL [Diltiazem ER] 300 mg PO DAILY Rivaroxaban [Xarelto] 15 mg PO EVENING MEAL Atorvastatin Calcium 40 mg PO DAILY Non-Formulary Drug [Non-Formulary Item] 1 each PO DAILY Dorzolamide HCl/Timolol Maleat [Dorzolamide-Timolol Eye Drops] 1 drop OP TID Brimonidine Tartrate/Timolol [Brimonidine-Timolol 0.2%-0.5%] 1 drop OP TID Moxifloxacin HCl [Vigamox] 1 drop OP TID Prednisolone Acetate/Pf [Prednisolone Acet 1% Eye Drop] 1 drop OP QID Non-Formulary Drug [Non-Formulary Item] 1 drop OP DAILY Prednisolone Acetate [Pred Forte] 1 drop OP DAILY Metoprolol Tartrate 25 mg PO BID Loratadine 10 mg PO DAILY Lisinopril 20 mg [Zestril 20 MG] 40 mg PO DAILY Latanoprost/Pf [Latanoprost 0.005% Eye Drop] 1 drop OP EVENING MEAL Discontinued acetaZOLAMIDE [Acetazolamide 250 mg Tablet] 500 mg PO DAILY Additional Instructions: REFERRAL WAS FAXED TO [facility]. THEY WILL CONTACT YOU TO ARRANGE A VISIT. THEIR PHONE NUMBER IS [phone] [facility] IS MAILING YOU A ROLLATOR (LORI) TO YOUR HOME. Follow up with: ALLIE GUDINO MD [Primary Care Provider] -
[2022-01-24 16:02] VITALS: BP 115/56; PULSE 61; O2SAT 96
[2022-01-24] MEDS: XARELTO 10 MG TABLET PO SCH (17:04)
== END 2022-01-24 18:30 | disposition home health service (06) ==
LOC: ED 10:22 → MED SURG 16:35
PROVIDERS: ADMIT Family Medicine; ATTEND Family Medicine
DX: R63.0 Anorexia (principal); R55 Syncope and collapse; E87.2 Acidosis; E86.0 Dehydration; N17.9 Acute kidney failure, unspecified; I49.9 Cardiac arrhythmia, unspecified; H57.12 Ocular pain, left eye; E78.00 Pure hypercholesterolemia, unspecified; I10 Essential (primary) hypertension; J44.9 Chronic obstructive pulmonary disease, unspecified; T50.905A Adverse effect of unspecified drugs, medicaments and biological substances, initial encounter; Z98.890 Other specified postprocedural states; Z79.899 Other long term (current) drug therapy; Z20.828 Contact with and (suspected) exposure to other viral communicable diseases
CPT/HCPCS: 0241U; 36415; 70450; 71045; 74018; 80048; 80053; 81001; 82150; 83605; 83690; 83735; 84484; 85025; 85610; 87040; 87400; 93005; 93268; 94760; 96360; 96361; 96374; 97161; 97530; 99000; 99285; G0378; J2405; A9270-GY

== ENCOUNTER 2022-08-21 14:15 | Observation (INO) | payer OTHER, MEDICARE ==
[2022-08-21 15:20] LABS: Absolute Neutrophil Ct (ANC) 4.23 x10^3/uL (1.4-6.9); Basophil (Absolute #) 0.04 x10^3/uL (0-0.4); Eosinophil % 0.3 % (0.00-5.0); Eosinophil (Absolute #) 0.02 x10^3/uL (0-0.5); Hematocrit 22.7 % (42-50); Lymphocyte (Absolute #) 0.93 x10^3/uL (1.0-4.6); Lymphocytes % 16.3 % (24.0-44.0); Mean Cell Volume 71.8 fL (78-100); Mean Corpuscular Hemoglobin 19.6 pg (26-32); Mean Corpuscular Hgb Concent. 27.3 g/dL (32-36); Mean Platelet Volume 10.2 fL (7.5-11.0); Monocyte (Absolute #) 0.48 x10^3/uL (0.0-1.3); Monocytes % 8.4 % (0.0-12.0); Platelet Count 279 x10^3/uL (150-450); Red Blood Count 3.16 x10^6/uL (4.1-5.6); White Blood Count 5.7 x10^3/uL (4.0-10.5)
[2022-08-21 15:24] LABS: Hemoglobin 6.2 g/dL (12.5-18.0)
[2022-08-21 15:38] LABS: ANION GAP 10.3 MEQ/L (5-15); Calcium 8.6 mg/dL (8.4-10.2); Creatinine 1 1.87 mg/dL (0.66-1.25); EST GLOMERULAR FILTRATION RATE 36.9 ML/MIN; Potassium 5.3 mmol/L (3.5-5.1)
[2022-08-21 15:41] LABS: TIBC 418 ug/dL (261-497)
[2022-08-21 15:44] LABS: Iron < 10 ug/dL (49-181)
[2022-08-21] MEDS ORDERED: Sodium Chloride 0.9% 1000 ML 0 ML ONE (16:46)
--- NOTE | 2022-08-21 16:53 | XRAY ---
Indication: Low blood count. Splenomegaly. Multiple contiguous intact images obtained through the abdomen and pelvis without contrast. Comparison: December 26, 2016 Lung bases again hyperinflated with new posterior medial right lower lobe consolidating interstitial alveolar opacities. Heart is now borderline enlarged with partially visualized pacer lead. Noncontrasted stomach and bowel loops nonobstructed. Again appendectomy reported. There is now mild diffuse scattered colonic fecal debris. Stable small bilateral renal cysts and small left adrenal adenoma. Spleen is not enlarged. No free fluid/air. Remaining liver, gallbladder, pancreas, spleen, adrenal glands, kidneys, ureters, and bladder are unremarkable for noncontrast exam. Again moderate scattered vascular calcifications without AAA. Osseous structures intact again with osteopenia, mild multilevel generative spondylosis, and 2 small sacral bone islands. Impression: 1. New right lower lobe interstitial alveolar opacities. Rule out aspiration pneumonitis. 2. New mild diffuse fecal stasis. 3. Again chronic findings including bilateral renal cysts, left adrenal adenoma, arteriosclerotic disease, and chronic bony findings.
--- NOTE | 2022-08-21 17:10 | ERPHSYRPT ---
- History of Present Illness Time Seen by Provider: 08/21/22 15:00 Source: patient Exam Limitations: no limitations Patient Subjective Stated Complaint: PT states "[facility] went to [facility] this morning and had general labs drawn and they told me I need a blood transfusion a nd to get to an emergency room." Triage Nursing Assessment: Pt presented alert and oriented X 3, skin wpd pt ambulates with a cane, with an upright steady gait, able to speak in clear full sentenecs pt resting comfortably on the bed. Physician History: Patient is a 81-year-old male who is normally followed by the [facility] apparently he went to the [facility] yesterday had some labs drawn and received a call today saying that he needed to go to the nearest hospital. They told him his hemoglobin was 6.8 and they did fax those results to us here in the emergency room. The patient denies any obvious source of blood loss. He denies melena hematemesis etc. Severity: moderate Associated Symptoms: denies symptoms Allergies/Adverse Reactions: No Known Drug Allergies Allergy (Verified 07/26/21 08:10) Home Medications: Omeprazole 20 MG [Prilosec 20 mg] 40 mg PO BID 12/23/12 [History] Levothyroxine Sodium 100 Mcg [Synthroid 100 Mcg] 112 mcg PO DAILY 12/24/12 [History] Acetaminophen [Tylenol Extra Strength Arthrit] 500 mg PO Q4H PRN PRN 05/20/13 [History] Ipratropium/Albuterol Sulfate [Combivent Inhaler] 14.7 gm IH TID PRN 05/20/13 [ History] dilTIAZem HCL [Diltiazem ER] 300 mg PO DAILY 07/10/16 [History] Atorvastatin Calcium 40 mg PO DAILY 07/26/21 [History] Rivaroxaban [Xarelto] 15 mg PO EVENING MEAL 07/26/21 [History] Brimonidine Tartrate/Timolol [Brimonidine-Timolol 0.2%-0.5%] 1 drop OP TID 01/21/22 [History] Dorzolamide HCl/Timolol Maleat [Dorzolamide-Timolol Eye Drops] 1 drop OP TID 01/21/22 [History] Lisinopril 20 mg [Zestril 20 MG] 40 mg PO DAILY 01/21/22 [History] Loratadine 10 mg PO DAILY 01/21/22 [History] Metoprolol Tartrate 25 mg PO BID 01/21/22 [History] Non-Formulary Drug [Non-Formulary Item] 1 drop OP DAILY 01/21/22 [History] Hx Tetanus, Diphtheria Vaccination/Date Given: Yes Hx Influenza Vaccination/Date Given: Yes Hx Pneumococcal Vaccination/Date Given: Yes Immunizations Up to Date: Yes Travel Risk - International Travel Have you traveled outside of the country in past 3 weeks: No - Coronavirus Screening Are you exhibiting any of the following symptoms?: No Close contact with a COVID-19 positive Pt in past 14-21 Days: No - Vaccine Status Have you recieved a Covid-19 vaccination: Yes 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: [employer] - Vaccination Dates Date of 2cond Vaccination (if applicable): 12/20/20 Comment: unable to remember exact dates - Review of Systems Constitutional: No Fever, No Chills Eyes: No Symptoms Ears, Nose, & Throat: No Symptoms Respiratory: No Cough, No Dyspnea Cardiac: No Chest Pain, No Edema, No Syncope Abdominal/Gastrointestinal: No Abdominal Pain, No Nausea, No Vomiting, No Diarrhea Genitourinary Symptoms: No Dysuria Musculoskeletal: No Back Pain, No Neck Pain Skin: No Rash Neurological: No Dizziness, No Focal Weakness, No Sensory Changes Psychological: No Symptoms Endocrine: No Symptoms All Other Systems: Reviewed and Negative - Past Medical History Pertinent Past Medical History: Yes Neurological History: Migraines, TIA ENT History: Cataracts, Other Cardiac History: Arrhythmia, High Cholesterol, Hypertension Respiratory History: COPD Endocrine Medical History: Adrenal Insufficiency, Hypothyroidism Musculoskeletal History: Osteoarthritis GI Medical History: GERD History: Other Psycho-Social History: No Pertinent History Male Reproductive Disorders: No Pertinent History Other Medical History: Pt sleeps with O2. some kidney insufficiency. HX afib - Past Surgical History Past Surgical History: Yes Neuro Surgical History: No Pertinent History Cardiac: Cardiac Catheterization Respiratory: No Pertinent History Gastrointestinal: Appendectomy Genitourinary: No Pertinent History Musculoskeletal: Orthopedic Surgery Male Surgical History: No Pertinent History Other Surgical History: left knee-bone chip removed, bilateral cataracts removed, R hand trigger finger release., left elbow - Social History Smoking Status: Former smoker Exposure to second hand smoke: No Drug Use: none Patient Lives Alone: Yes - Nursing Vital Signs Nursing Vital Signs: Initial Vital Signs Temperature 97.6 F 08/21/22 14:46 Pulse Rate 80 08/21/22 14:46 Respiratory Rate 20 08/21/22 14:46 Blood Pressure 123/60 08/21/22 14:46 O2 Sat by Pulse Oximetry 98 08/21/22 14:46 Pain Scale Pain Intensity 0 - Physical Exam General Appearance: no apparent distress, alert Eye Exam: PERRL/EOMI, eyes nml inspection Ears, Nose, Throat Exam: normal ENT inspection, TMs normal, pharynx normal, moist mucous membranes Neck Exam: normal inspection, non-tender, supple, full range of motion Respiratory Exam: normal breath sounds, lungs clear, No respiratory distress Cardiovascular Exam: regular rate/rhythm, normal heart sounds, normal peripheral pulses Gastrointestinal/Abdomen Exam: soft, normal bowel sounds, No tenderness, No mass Back Exam: normal inspection, normal range of motion, No CVA tenderness, No vertebral tenderness Extremity Exam: normal inspection, normal range of motion, pelvis stable Neurologic Exam: alert, oriented x 3, cooperative, normal mood/affect, nml cerebellar function, nml station & gait, sensation nml, No motor deficits Skin Exam: normal color, warm, dry, No rash Lymphatic Exam: No adenopathy SpO2 Interpretation: normal SpO2: 98 O2 Delivery: Room Air - Course Nursing assessment & vital signs reviewed: Yes Ordered Tests: Active Orders 24 hr Category Date Time Status ABDOMEN AND PELVIS W/0 CONTRAS [CT] Stat Exams 08/21/22 15:05 Completed BMP Stat Lab 08/21/22 15:29 Completed CBC W DIFF Stat Lab 08/21/22 15:02 Completed Occult Blood Stool [FECAL OCCULT BLOOD - SCREENING] Lab 08/21/22 15:03 Ordered Stat RETICULOCYTE PANEL Stat Lab 08/21/22 15:15 Completed UA W/RFX CULTURE Stat Lab 08/21/22 Ordered Medication Summary Discontinued Medications Generic Name Dose Route Start Last Admin Trade Name Freq PRN Reason Stop Dose Admin Sodium Chloride Confirm 08/21/22 16:46 Sodium Chloride 0.9% 1000 Ml Administered 08/21/22 16:47 Dose 1,000 mls @ ud .ROUTE .[facility] Lab/Rad Data: Laboratory Result Diagrams 08/21/22 15:02 08/21/22 15:29 Laboratory Results 10/02/0708/21/22 08/21/22 Range/Units 15:29 15:15 15:15 WBC (4.0-10.5) x10^3/uL RBC (4.1-5.6) x10^6/uL Hgb (12.5-18.0) g/dL Hct (42-50) % MCV (78-100) fL MCH (26-32) pg MCHC (32-36) g/dL RDW (11.5-14.0) % Plt Count (150-450) x10^3/uL MPV (7.5-11.0) fL Gran % (36.0-66.0) % Immature Gran % (Auto) (0.00-0.4) % Reticulocyte % (Auto) 1.1 (0.6-2.6) % Nucleat RBC Rel Count (0.00-0.1) % Eos # (Auto) (0-0.5) x10^3/uL Immature Gran # (Auto) (0.00-0.03) x10^3u/L Absolute Lymphs (auto) (1.0-4.6) x10^3/uL Absolute Monos (auto) (0.0-1.3) x10^3/uL Absolute Nucleated RBC (0.00-0.01) x10^3u/L Lymphocytes % (24.0-44.0) % Monocytes % (0.0-12.0) % Eosinophils % (0.00-5.0) % Basophils % (0.0-0.4) % Absolute Granulocytes (1.4-6.9) x10^3/uL Basophils # (0-0.4) x10^3/uL Retic Hgb Content 15.8 L (28-38) pg Sodium 140 (137-145) mmol/L Potassium 5.3 H (3.5-5.1) mmol/L Chloride 109 H (98-107) mmol/L Carbon Dioxide 27 (22-30) mmol/L Anion Gap 10.3 (5-15) MEQ/L BUN 35 H (9-20) mg/dL Creatinine 1.87 H (0.66-1.25) mg/dL Estimated GFR 36.9 ML/MIN Glucose 113 H (74-106) mg/dL Calcium 8.6 (8.4-10.2) mg/dL Iron < 10 L (49-181) ug/dL TIBC 418 (261-497) ug/dL 08/21/22 Range/Units 15:02 WBC 5.7 (4.0-10.5) x10^3/uL RBC 3.16 L (4.1-5.6) x10^6/uL Hgb 6.2 L* (12.5-18.0) g/dL Hct 22.7 L (42-50) % MCV 71.8 L (78-100) fL MCH 19.6 L (26-32) pg MCHC 27.3 L (32-36) g/dL RDW 19.0 H (11.5-14.0) % Plt Count 279 (150-450) x10^3/uL MPV 10.2 (7.5-11.0) fL Gran % 74.0 H (36.0-66.0) % Immature Gran % (Auto) 0.3 (0.00-0.4) % Reticulocyte % (Auto) (0.6-2.6) % Nucleat RBC Rel Count 0.0 (0.00-0.1) % Eos # (Auto) 0.02 (0-0.5) x10^3/uL Immature Gran # (Auto) 0.02 (0.00-0.03) x10^3u/L Absolute Lymphs (auto) 0.93 L (1.0-4.6) x10^3/uL Absolute Monos (auto) 0.48 (0.0-1.3) x10^3/uL Absolute Nucleated RBC 0.00 (0.00-0.01) x10^3u/L Lymphocytes % 16.3 L (24.0-44.0) % Monocytes % 8.4 (0.0-12.0) % Eosinophils % 0.3 (0.00-5.0) % Basophils % 0.7 (0.0-0.4) % Absolute Granulocytes 4.23 (1.4-6.9) x10^3/uL Basophils # 0.04 (0-0.4) x10^3/uL Retic Hgb Content (28-38) pg Sodium (137-145) mmol/L Potassium (3.5-5.1) mmol/L Chloride (98-107) mmol/L Carbon Dioxide (22-30) mmol/L Anion Gap (5-15) MEQ/L BUN (9-20) mg/dL Creatinine (0.66-1.25) mg/dL Estimated GFR ML/MIN Glucose (74-106) mg/dL Calcium (8.4-10.2) mg/dL Iron (49-181) ug/dL TIBC (261-497) ug/dL - Progress Progress: unchanged - Departure Departure Disposition: Observation Clinical Impression: Anemia Condition: Stable Critical Care Time: No Referrals: ALLIE GUDINO MD [Primary Care Provider] - Follow up/PCP as directed
[2022-08-21 17:55] LABS: INFLUENZA A NEGATIVE (NEGATIVE); INFLUENZA B NEGATIVE (NEGATIVE); RESPIRATORY SYNCTIAL VIRUS NEGATIVE (Negative); SARS-CoV-2 Xpert Express NEGATIVE (NEGATIVE)
[2022-08-21 18:10] LABS: Appearance CLEAR (CLEAR); Bilirubin NEGATIVE (NEGATIVE); Dipstick done @ ? MAIN LAB; Glucose NEGATIVE (NEGATIVE); Ketones NEGATIVE (NEGATIVE); Nitrite NEGATIVE (NEGATIVE); Ph 7.5 (5-6); Protein,Urine Dip NEGATIVE (Negative); RBC NEGATIVE Ery/ul (0-5); Urobilinogen 0.2 mg/dL (0-1)
[2022-08-21 18:12] LABS: Mucus SLIGHT /HPF (NEGATIVE)
[2022-08-21 18:13] LABS: Urine Cultured Indicated? NO
[2022-08-21 18:41] LABS: ABO TYPING A; RH TYPING POSITIVE
[2022-08-21 19:35] LABS: Slide Review 1 YES
[2022-08-21] MEDS: Lopressor 50 MG PO SCH (21:14)
[2022-08-21] MEDS: Protonix 40MG Tablet PO SCH (21:17)
[2022-08-22] MEDS ORDERED: NON-FORMULARY ITEM (Ipratropium/Albuterol Sulfate [Combivent Inhaler] 14.7 GM Aer.W.Adap) IH PRN (09:21)
[2022-08-22] MEDS ORDERED: TYLENOL EXTRA STRENGTH 500 MG PO PRN (09:21)
[2022-08-22] MEDS ORDERED: DUONEB 0.5-3 MG/3 ml Neb IH PRN (09:31)
[2022-08-22] MEDS: Lopressor 50 MG PO SCH ×2 (09:41→21:08)
[2022-08-22] MEDS ORDERED: MEDICATION INTERVENTION MC SCH (09:45)
[2022-08-22] MEDS: Zestril 20 MG PO SCH (09:46)
[2022-08-22] MEDS ORDERED: PRED-FORTE 1% OPHTHALMIC OP SCH (10:00)
[2022-08-22] MEDS ORDERED: FLUZONE HIGH-DOSE QUAD 2022-23 IM ONE (10:00)
[2022-08-22] MEDS ORDERED: SYNTHROID 100 MCG PO SCH (10:00)
[2022-08-22] MEDS ORDERED: DILTIAZEM HCL 120 MG PO SCH (10:00)
[2022-08-22] MEDS ORDERED: LIPITOR 40MG PO SCH (10:00)
[2022-08-22] MEDS ORDERED: NON-FORMULARY ITEM (Prednisolone Acetate/Pf [Prednisolone Acet 1% Eye Drop] 5 ML Drops.Sus OP SCH (10:00)
[2022-08-22] MEDS ORDERED: FLUOROMETHOLONE ACETATE OP SCH (10:00)
[2022-08-22] MEDS: PRED-FORTE 1% OPHTHALMIC OP SCH (10:12)
[2022-08-22] MEDS: ZOCOR 20MG PO SCH (10:13)
[2022-08-22] MEDS: SYNTHROID 112 MCG PO SCH (10:13)
[2022-08-22] MEDS: Protonix 40MG Tablet PO SCH ×2 (10:13→21:09)
[2022-08-22] MEDS: Cardizem CD PO SCH (10:14)
--- NOTE | 2022-08-22 10:17 | PCM.HP ---
History of Present Illness - Chief Complaint Chief Complaint: anemia History of Present Illness: is a 81 year old male pt of the [facility] and Dr. Daniels with PMHx afib, COPD, HTN, CRF, hyperlipidemia, and PUD who was admitted through ER with anemia. He had labs recently at the [facility] and was called yesterday, advised that hemoglobin was 6.8 and told to go to nearest ER. Hgb was 6.2 here. The [facility] was contacted and approved pt to have blood transfusion here at [facility]. He is waiting for blood currently as he has antibodies. He denies taking NSAIDs or aspirin. Denies blood in the stool or black tarry stool. Has never required a blood transfusion. He says he feels "good" today but family member present says he always says that. Pt has been on xarelto for afib, but it was held for the past 2+ weeks for an eye surgery, then continued to be held for a R ear skin cancer removal last week by Dr. Mina. - Review of Systems Constitutional: Fatigue Respiratory: Short Of Breath (chronic) Cardiac: Chest Pain (chronic, with any activity - sees Dr. West Mckee.), Edema (feet bilat, since spring, but worse for the past 3 weeks.) Skin: Other (has several skin cancers on face) Medications & Allergies Home Medications: Home Medication List Omeprazole 20 MG [Prilosec 20 mg] 40 mg PO BID 12/23/12 [History Confirmed 08/22/22] Levothyroxine Sodium 100 Mcg [Synthroid 100 Mcg] 112 mcg PO DAILY 12/24/12 [History Confirmed 08/22/22] Acetaminophen [Tylenol Extra Strength Arthrit] 500 mg PO Q4H PRN PRN 05/20/13 [History Confirmed 08/22/22] Ipratropium/Albuterol Sulfate [Combivent Inhaler] 14.7 gm IH TID PRN 05/20/13 [History Confirmed 08/22/22] dilTIAZem HCL [Diltiazem ER] 300 mg PO DAILY 07/10/16 [History Confirmed 08/22/22] Atorvastatin Calcium 40 mg PO DAILY 07/26/21 [History Confirmed 08/22/22] Lisinopril 20 mg [Zestril 20 MG] 40 mg PO DAILY 01/21/22 [History Confirmed 08/22/22] Metoprolol Tartrate 50 mg PO BID 01/21/22 [History Confirmed 08/22/22] Fluorometholone Acetate [Flarex] 1 drop OP DAILY 08/22/22 [History Confirmed 08/22/22] Prednisolone Acetate/Pf [Prednisolone Acet 1% Eye Drop] 1 drop OP DAILY 08/22/22 [History Confirmed 08/22/22] Allergies/Adverse Reactions: Allergies Allergy/AdvReac Type Severity Reaction Status Date / Time No Known Drug Allergies Allergy Verified 07/26/21 08:10 - Past Medical History Past Medical History: Yes Neurological History: Migraines, TIA ENT History: Cataracts, Other Cardiac History: Arrhythmia, High Cholesterol, Hypertension Respiratory History: COPD Endocrine Medical History: Adrenal Insufficiency, Hypothyroidism Musculoskelatal History: Osteoarthritis GI Medical History: GERD History: Other Pyscho-Social History: No Pertinent History Male Reproductive Disorders: No Pertinent History Comment: a-fib - Past Surgical History Past Surgical History: Yes Neuro Surgical History: No Pertinent History Cardiac History: Cardiac Catheterization, Internal Defibrillator, Pacemaker Respiratory Surgery: No Pertinent History GI Surgical History: Appendectomy Genitourinary Surgical Hx: No Pertinent History Musculskeletal Surgical Hx: Orthopedic Surgery Male Surgical History: No Pertinent History Other Surgical History: left knee-bone chip removed, bilateral cataracts removed, R hand trigger finger release., left elbow - Social History Smoking Status: Former smoker Exposure to second hand smoke: No Alcohol: None Drug Use: none - Physical Exam Vital Signs: Vital Signs - 24 hr Temp Pulse Resp BP Pulse Ox 08/22/22 10:04 59 L 14 98 08/22/22 06:46 97.3 F 84 22 126/57 100 08/22/22 04:00 60 20 08/21/22 23:22 72 20 124/62 96 08/21/22 21:12 129/63 08/21/22 20:55 97.3 F 67 20 169/70 97 08/21/22 18:28 97 F 62 21 176/71 98 08/21/22 17:58 98 08/21/22 17:56 97.6 F 62 16 148/66 99 08/21/22 16:56 97.6 F 63 20 140/65 98 08/21/22 15:40 73 20 126/56 97 08/21/22 14:46 97.6 F 80 20 123/60 98 General Appearance: no apparent distress, alert Neurologic Exam: oriented x 3, cooperative Eye Exam: eyes nml inspection Ears, Nose, Throat Exam: moist mucous membranes Neck Exam: normal inspection Respiratory Exam: normal breath sounds, lungs clear, No crackles/rales, No rhonchi, No wheezing Cardiovascular Exam: regular rate/rhythm, normal heart sounds, No murmur Gastrointestinal/Abdomen Exam: soft, normal bowel sounds, tenderness (epigastrum and lower abdomen), No distention, No mass, No guarding, No rebound Back Exam: normal inspection, No CVA tenderness, No rash Extremity Exam: normal inspection, No pedal edema, No swelling Skin Exam: normal color, warm, dry, No rash Results - Labs Lab/Micro Results: Lab Results-Last 24 Hours 08/21/22 08/21/22 08/21/22 Range/Units 15:02 15:15 15:15 WBC 5.7 (4.0-10.5) x10^3/uL RBC 3.16 L (4.1-5.6) x10^6/uL Hgb 6.2 L* (12.5-18.0) g/dL Hct 22.7 L (42-50) % MCV 71.8 L (78-100) fL MCH 19.6 L (26-32) pg MCHC 27.3 L (32-36) g/dL RDW 19.0 H (11.5-14.0) % Plt Count 279 (150-450) x10^3/uL MPV 10.2 (7.5-11.0) fL Gran % 74.0 H (36.0-66.0) % Immature Gran % (Auto) 0.3 (0.00-0.4) % Reticulocyte % (Auto) 1.1 (0.6-2.6) % Nucleat RBC Rel Count 0.0 (0.00-0.1) % Eos # (Auto) 0.02 (0-0.5) x10^3/uL Immature Gran # (Auto) 0.02 (0.00-0.03) x10^3u/L Absolute Lymphs (auto) 0.93 L (1.0-4.6) x10^3/uL Absolute Monos (auto) 0.48 (0.0-1.3) x10^3/uL Absolute Nucleated RBC 0.00 (0.00-0.01) x10^3u/L Lymphocytes % 16.3 L (24.0-44.0) % Monocytes % 8.4 (0.0-12.0) % Eosinophils % 0.3 (0.00-5.0) % Basophils % 0.7 (0.0-0.4) % Absolute Granulocytes 4.23 (1.4-6.9) x10^3/uL Basophils # 0.04 (0-0.4) x10^3/uL Retic Hgb Content 15.8 L (28-38) pg Sodium (137-145) mmol/L Potassium (3.5-5.1) mmol/L Chloride (98-107) mmol/L Carbon Dioxide (22-30) mmol/L Anion Gap (5-15) MEQ/L BUN (9-20) mg/dL Creatinine (0.66-1.25) mg/dL Estimated GFR ML/MIN Glucose (74-106) mg/dL Hemoglobin A1c (4.5-6.0) % Calcium (8.4-10.2) mg/dL Iron < 10 L (49-181) ug/dL TIBC 418 (261-497) ug/dL Urinalys Dipstick Clnc Urine Color (YELLOW) Urine Appearance (CLEAR) Urine pH (5-6) Ur Specific [place] (1.005-1.025) POC Urine Protein Conf (Negative) Urine Ketones (NEGATIVE) Urine Nitrite (NEGATIVE) Urine Bilirubin (NEGATIVE) Urine Urobilinogen (0-1) mg/dL Urine Leukocytes (NEGATIVE) Urine WBC (Auto) (0-5) /HPF Urine RBC (Auto) (0-2) /HPF U Epithel Cells (Auto) (FEW) /HPF Urine Bacteria (Auto) (NEGATIVE) /HPF Urine RBC (0-5) Jacob/ul Urine Mucus (Auto) (NEGATIVE) /HPF Ur Culture Indicated? Urine Glucose (NEGATIVE) mg/dL Stool Occult Blood (NEGATIVE) Influenza Type A Ag (NEGATIVE) Influenza Type B Ag (NEGATIVE) RSV (PCR) (Negative) SARS-CoV-2 (PCR) (NEGATIVE) Slides for Path Review YES ABO Group Rh Factor Antibody Screen (NEGATIVE) Crossmatch (COMPATIBLE) 08/21/22 08/21/22 08/21/22 Range/Units 15:20 15:29 17:17 WBC (4.0-10.5) x10^3/uL RBC (4.1-5.6) x10^6/uL Hgb (12.5-18.0) g/dL Hct (42-50) % MCV (78-100) fL MCH (26-32) pg MCHC (32-36) g/dL RDW (11.5-14.0) % Plt Count (150-450) x10^3/uL MPV (7.5-11.0) fL Gran % (36.0-66.0) % Immature Gran % (Auto) (0.00-0.4) % Reticulocyte % (Auto) (0.6-2.6) % Nucleat RBC Rel Count (0.00-0.1) % Eos # (Auto) (0-0.5) x10^3/uL Immature Gran # (Auto) (0.00-0.03) x10^3u/L Absolute Lymphs (auto) (1.0-4.6) x10^3/uL Absolute Monos (auto) (0.0-1.3) x10^3/uL Absolute Nucleated RBC (0.00-0.01) x10^3u/L Lymphocytes % (24.0-44.0) % Monocytes % (0.0-12.0) % Eosinophils % (0.00-5.0) % Basophils % (0.0-0.4) % Absolute Granulocytes (1.4-6.9) x10^3/uL Basophils # (0-0.4) x10^3/uL Retic Hgb Content (28-38) pg Sodium 140 (137-145) mmol/L Potassium 5.3 H (3.5-5.1) mmol/L Chloride 109 H (98-107) mmol/L Carbon Dioxide 27 (22-30) mmol/L Anion Gap 10.3 (5-15) MEQ/L BUN 35 H (9-20) mg/dL Creatinine 1.87 H (0.66-1.25) mg/dL Estimated GFR 36.9 ML/MIN Glucose 113 H (74-106) mg/dL Hemoglobin A1c (4.5-6.0) % Calcium 8.6 (8.4-10.2) mg/dL Iron (49-181) ug/dL TIBC (261-497) ug/dL Urinalys Dipstick Clnc Urine Color (YELLOW) Urine Appearance (CLEAR) Urine pH (5-6) Ur Specific [place] (1.005-1.025) POC Urine Protein Conf (Negative) Urine Ketones (NEGATIVE) Urine Nitrite (NEGATIVE) Urine Bilirubin (NEGATIVE) Urine Urobilinogen (0-1) mg/dL Urine Leukocytes (NEGATIVE) Urine WBC (Auto) (0-5) /HPF Urine RBC (Auto) (0-2) /HPF U Epithel Cells (Auto) (FEW) /HPF Urine Bacteria (Auto) (NEGATIVE) /HPF Urine RBC (0-5) Jacob/ul Urine Mucus (Auto) (NEGATIVE) /HPF Ur Culture Indicated? Urine Glucose (NEGATIVE) mg/dL Stool Occult Blood (NEGATIVE) Influenza Type A Ag NEGATIVE (NEGATIVE) Influenza Type B Ag NEGATIVE (NEGATIVE) RSV (PCR) NEGATIVE (Negative) SARS-CoV-2 (PCR) NEGATIVE (NEGATIVE) Slides for Path Review ABO Group A Rh Factor POSITIVE Antibody Screen (NEGATIVE) Crossmatch PENDING (COMPATIBLE) 08/21/22 08/22/22 08/22/22 Range/Units 18:06 05:00 Unknown WBC (4.0-10.5) x10^3/uL RBC (4.1-5.6) x10^6/uL Hgb (12.5-18.0) g/dL Hct (42-50) % MCV (78-100) fL MCH (26-32) pg MCHC (32-36) g/dL RDW (11.5-14.0) % Plt Count (150-450) x10^3/uL MPV (7.5-11.0) fL Gran % (36.0-66.0) % Immature Gran % (Auto) (0.00-0.4) % Reticulocyte % (Auto) (0.6-2.6) % Nucleat RBC Rel Count (0.00-0.1) % Eos # (Auto) (0-0.5) x10^3/uL Immature Gran # (Auto) (0.00-0.03) x10^3u/L Absolute Lymphs (auto) (1.0-4.6) x10^3/uL Absolute Monos (auto) (0.0-1.3) x10^3/uL Absolute Nucleated RBC (0.00-0.01) x10^3u/L Lymphocytes % (24.0-44.0) % Monocytes % (0.0-12.0) % Eosinophils % (0.00-5.0) % Basophils % (0.0-0.4) % Absolute Granulocytes (1.4-6.9) x10^3/uL Basophils # (0-0.4) x10^3/uL Retic Hgb Content (28-38) pg Sodium (137-145) mmol/L Potassium (3.5-5.1) mmol/L Chloride (98-107) mmol/L Carbon Dioxide (22-30) mmol/L Anion Gap (5-15) MEQ/L BUN (9-20) mg/dL Creatinine (0.66-1.25) mg/dL Estimated GFR ML/MIN Glucose (74-106) mg/dL Hemoglobin A1c 5.93 (4.5-6.0) % Calcium (8.4-10.2) mg/dL Iron (49-181) ug/dL TIBC (261-497) ug/dL Urinalys Dipstick Clnc MAIN LAB Urine Color YELLOW (YELLOW) Urine Appearance CLEAR (CLEAR) Urine pH 7.5 (5-6) Ur Specific [place] 1.020 (1.005-1.025) POC Urine Protein Conf NEGATIVE (Negative) Urine Ketones NEGATIVE (NEGATIVE) Urine Nitrite NEGATIVE (NEGATIVE) Urine Bilirubin NEGATIVE (NEGATIVE) Urine Urobilinogen 0.2 (0-1) mg/dL Urine Leukocytes NEGATIVE (NEGATIVE) Urine WBC (Auto) NONE (0-5) /HPF Urine RBC (Auto) NONE (0-2) /HPF U Epithel Cells (Auto) NONE (FEW) /HPF Urine Bacteria (Auto) NONE (NEGATIVE) /HPF Urine RBC NEGATIVE (0-5) Jacob/ul Urine Mucus (Auto) SLIGHT (NEGATIVE) /HPF Ur Culture Indicated? NO Urine Glucose NEGATIVE (NEGATIVE) mg/dL Stool Occult Blood NEGATIVE (NEGATIVE) Influenza Type A Ag (NEGATIVE) Influenza Type B Ag (NEGATIVE) RSV (PCR) (Negative) SARS-CoV-2 (PCR) (NEGATIVE) Slides for Path Review ABO Group Rh Factor Antibody Screen (NEGATIVE) Crossmatch (COMPATIBLE) - Radiology Impressions Radiology Exams & Impressions: Radiology Procedures Category Date Time Status ABDOMEN AND PELVIS W/0 CONTRAS [CT] Stat Exams 08/21/22 15:05 Completed - Other Procedures and Tests Respiratory Therapy 08/22/22 10:03 Respiratory Therapy Assessment DAILY Assessment/Plan (1) Anemia Current Visit: Yes Status: Acute Qualifiers: Anemia type: iron deficiency 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 Certainly the kidneys could be contributing. I'm concerned about his hx PUD, although he denies any blood in the stool. Would like him to be considered for EGD/colonoscopy; [facility] for further eval. At any rate, this would have to wait until after his transfusion today. Code(s): D64.9 - ANEMIA, UNSPECIFIED (2) HTN (hypertension) Current Visit: Yes Status: Chronic Qualifiers: Hypertension type: primary hypertension Qualified Code(s): I10 - Essential (primary) hypertension Assessment & Plan: restart meds as tolerated Code(s): I10 - ESSENTIAL (PRIMARY) HYPERTENSION (3) Chronic renal insufficiency Current Visit: No Status: Chronic Code(s): N18.9 - CHRONIC KIDNEY DISEASE, UNSPECIFIED
[2022-08-22 10:33] LABS: CROSS MATCH (PRBC) COMPATIBLE (COMPATIBLE)
[2022-08-22] MEDS ORDERED: Sodium Chloride 0.9% 500 ML 500 ML IV ONE (10:34)
[2022-08-22 10:41] LABS: Antibody Screen NEGATIVE (NEGATIVE)
[2022-08-22] MEDS: PATIENT OWN MEDICATION OP SCH (16:53)
[2022-08-22 17:54] LABS: Hematocrit 30.1 % (42-50); Hemoglobin 8.9 g/dL (12.5-18.0)
[2022-08-22] MEDS: Acular OPTH SOL OP SCH (21:08)
--- NOTE | 2022-08-23 09:04 | PCM.NOTE ---
Date and Time: 08/23/22900 Subjective Assessment: patient feels well today, denies any pain, no nausea/vomiting or diarrhea present. had a bowel movement this am and denies any melena/hematochezia. he does have a remote hx of PUD in the past. Objective Exam General Appearance: no apparent distress Neurologic Exam: alert, oriented x 3 Respiratory Exam: normal breath sounds, lungs clear, No respiratory distress Cardiovascular Exam: regular rate/rhythm, normal heart sounds Gastrointestinal/Abdomen Exam: soft, No tenderness, No mass OBJECTIVE DATA Vital Signs: Vital Signs - 24 hr Temp Pulse Resp BP Pulse Ox 08/23/22 08:10 61 18 98 08/23/22 06:54 98.0 F 64 22 202/92 99 08/23/22 04:35 97.8 F 60 18 186/81 97 08/23/22 00:23 98.2 F 60 19 167/74 97 08/22/22 21:08 60 151/67 08/22/22 19:55 98.6 F 62 17 162/53 99 08/22/22 19:52 62 16 98 08/22/22 16:00 98.5 F 64 18 167/74 97 08/22/22 11:52 98.3 F 60 18 132/59 99 08/22/22 10:12 98 08/22/22 10:04 59 L 14 98 Pain Assessment - Last Documented Pain Intensity 0 Intake and Output: Intake & Output 08/20/22 08/21/22 08/22/22 08/23/22 11:59 11:59 11:59 11:59 Intake Total 740 1790 Output Total 500 600 Balance 240 1190 Weight 90.6 kg Lab Results: Lab Results-Last 24 Hours 08/21/22 08/21/22 08/22/22 Range/Units 15:20 15:20 05:00 Hgb (12.5-18.0) g/dL Hct (42-50) % Hemoglobin A1c 5.93 (4.5-6.0) % Antibody Screen NEGATIVE (NEGATIVE) Crossmatch COMPATIBLE COMPATIBLE (COMPATIBLE) 08/22/22 Range/Units 17:45 Hgb 8.9 L D (12.5-18.0) g/dL Hct 30.1 L (42-50) % Hemoglobin A1c (4.5-6.0) % Antibody Screen (NEGATIVE) Crossmatch (COMPATIBLE) Radiology Exams: Radiology Procedures Category Date Time Status ABDOMEN AND PELVIS W/0 CONTRAS [CT] Stat Exams 08/21/22 15:05 Completed Assessment/Plan (1) Iron deficiency anemia Current Visit: Yes Status: Acute Assessment & Plan: surgery consulted, changed to clear liquid diet this am. will see if they can do upper/lower scope tomorrow for anemia. hx PUD but no obvious source of bleeding clinically. he is currently on PPI, xarelto has been on hold due to recent cataract surgery/skin cancer removal from right ear. Code(s): D50.9 - IRON DEFICIENCY ANEMIA, UNSPECIFIED (2) Atrial fibrillation Current Visit: Yes Status: Acute Assessment & Plan: rate is controlled and sounds like he is in a sinus rhythm currently. no anticoagulation due to anemia and possible endo procedure Code(s): I48.91 - UNSPECIFIED ATRIAL FIBRILLATION (3) HTN (hypertension) Current Visit: Yes Status: Chronic Qualifiers: Hypertension type: primary hypertension Qualified Code(s): I10 - Essential (primary) hypertension Code(s): I10 - ESSENTIAL (PRIMARY) HYPERTENSION (4) Hypothyroidism Current Visit: Yes Status: Acute Code(s): E03.9 - HYPOTHYROIDISM, UNSPECIFIED
[2022-08-23] MEDS: Cardizem CD PO SCH (09:18)
[2022-08-23] MEDS: Protonix 40MG Tablet PO SCH ×2 (09:18→20:25)
[2022-08-23] MEDS: ZOCOR 20MG PO SCH (09:18)
[2022-08-23] MEDS: Zestril 20 MG PO SCH (09:18)
[2022-08-23] MEDS: Lopressor 50 MG PO SCH ×2 (09:18→20:25)
[2022-08-23] MEDS: SYNTHROID 112 MCG PO SCH (09:18)
[2022-08-23] MEDS: PATIENT OWN MEDICATION OP SCH (09:19)
[2022-08-23] MEDS: Acular OPTH SOL OP SCH ×3 (09:19→20:24)
[2022-08-23] MEDS: PRED-FORTE 1% OPHTHALMIC OP SCH (09:19)
--- NOTE | 2022-08-23 09:55 | XRAY ---
Indication: Anemia. Abnormal CT abdomen/pelvis. Comparison: January 21, 2022 Portable chest demonstrates new medial right base mild interstitial alveolar opacities corresponding to CT abnormality. Remaining heart and lungs unremarkable again with incidental left hilar calcified nodes and left pacemaker. Bony thorax intact again with osteopenia and degenerative changes.
[2022-08-23 11:06] LABS: Absolute Neutrophil Ct (ANC) 4.11 x10^3/uL (1.4-6.9); Basophil (Absolute #) 0.05 x10^3/uL (0-0.4); Eosinophil (Absolute #) 0.19 x10^3/uL (0-0.5); Hematocrit 31.4 % (42-50); Hemoglobin 9.1 g/dL (12.5-18.0); Lymphocyte (Absolute #) 1.36 x10^3/uL (1.0-4.6); Lymphocytes % 21.5 % (24.0-44.0); Mean Cell Volume 74.8 fL (78-100); Mean Corpuscular Hemoglobin 21.7 pg (26-32); Mean Platelet Volume 10.3 fL (7.5-11.0); Monocyte (Absolute #) 0.59 x10^3/uL (0.0-1.3); Monocytes % 9.3 % (0.0-12.0); Neutrophil % 64.8 % (36.0-66.0); Platelet Count 283 x10^3/uL (150-450); Red Cell Distribution Width 19.7 % (11.5-14.0); White Blood Count 6.3 x10^3/uL (4.0-10.5)
[2022-08-23 11:19] LABS: BILIRUBIN,TOTAL 0.6 mg/dL (0.2-1.3); Calcium 8.7 mg/dL (8.4-10.2); Creatinine 1 1.67 mg/dL (0.66-1.25); EST GLOMERULAR FILTRATION RATE 42.1 ML/MIN; Potassium 5.2 mmol/L (3.5-5.1)
[2022-08-23 11:20] LABS: INR 1.14 (0.8-3.0); PROTIME 11.9 SECONDS (9.4-12.5); PTT 29.6 SECONDS (25.1-36.5)
[2022-08-23] MEDS: Sodium Chloride 0.9% 10 ML FLUSH Syringe IV SCH ×2 (13:58→20:25)
[2022-08-23] MEDS ORDERED: Golytely Solution 4000 ML PO ONE (14:00)
[2022-08-24 04:47] LABS: Absolute Neutrophil Ct (ANC) 4.02 x10^3/uL (1.4-6.9); Basophil (Absolute #) 0.07 x10^3/uL (0-0.4); Eosinophil % 2.1 % (0.00-5.0); Eosinophil (Absolute #) 0.13 x10^3/uL (0-0.5); Hematocrit 30.1 % (42-50); Hemoglobin 8.8 g/dL (12.5-18.0); Lymphocyte (Absolute #) 1.29 x10^3/uL (1.0-4.6); Lymphocytes % 21.3 % (24.0-44.0); Mean Corpuscular Hemoglobin 21.6 pg (26-32); Mean Corpuscular Hgb Concent. 29.2 g/dL (32-36); Mean Platelet Volume 10.4 fL (7.5-11.0); Monocyte (Absolute #) 0.53 x10^3/uL (0.0-1.3); Monocytes % 8.7 % (0.0-12.0); Neutrophil % 66.4 % (36.0-66.0); Platelet Count 251 x10^3/uL (150-450); Red Blood Count 4.07 x10^6/uL (4.1-5.6); Red Cell Distribution Width 20.4 % (11.5-14.0); White Blood Count 6.1 x10^3/uL (4.0-10.5)
[2022-08-24 05:02] LABS: ALBUMIN 3.5 g/dL (3.5-5.0); BILIRUBIN,TOTAL 0.5 mg/dL (0.2-1.3); Calcium 8.5 mg/dL (8.4-10.2); Creatinine 1 1.52 mg/dL (0.66-1.25); EST GLOMERULAR FILTRATION RATE 46.9 ML/MIN; MAGNESIUM 2.1 mg/dL (1.6-2.3); Potassium 4.4 mmol/L (3.5-5.1); Total Protein 6.1 g/dL (6.3-8.2)
[2022-08-24] MEDS: Zestril 20 MG PO SCH (05:02)
[2022-08-24 07:42] VITALS: O2SAT 96
[2022-08-24] MEDS ORDERED: Lactated Ringers 1,000 ML IV ONE (07:46)
[2022-08-24] MEDS: Sodium Chloride 0.9% 10 ML FLUSH Syringe IV SCH (07:49)
[2022-08-24] MEDS ORDERED: APRESOLINE 20 MG/ML INJ IV ONE (07:54)
--- NOTE | 2022-08-24 07:56 | PCM.NOTE ---
Date and Time: 08/24/22 0754 Subjective Assessment: patient has no complaints this am, no pain. denies obvious blood in the stool Objective Exam General Appearance: no apparent distress, alert Neurologic Exam: alert, oriented x 3 Skin Exam: normal color, warm, dry Respiratory Exam: normal breath sounds, lungs clear, No respiratory distress Cardiovascular Exam: regular rate/rhythm, normal heart sounds Gastrointestinal/Abdomen Exam: soft, No tenderness, No mass OBJECTIVE DATA Vital Signs: Vital Signs - 24 hr Temp Pulse Resp BP Pulse Ox 08/24/22 07:53 98.3 F 78 18 191/91 96 08/24/22 07:39 78 18 96 08/24/22 06:52 98.3 F 61 18 191/91 95 08/24/22 05:07 196/90 08/24/22 03:54 98.2 F 63 20 193/86 96 08/23/22 23:49 97.5 F 63 17 186/83 94 L 08/23/22 20:15 184/82 08/23/22 19:39 97.1 F 67 17 198/89 99 08/23/22 19:25 63 20 97 08/23/22 16:00 97.5 F 59 L 20 179/82 99 08/23/22 11:08 97.5 F 62 18 165/75 98 08/23/22 08:10 61 18 98 Pain Assessment - Last Documented Pain Intensity 0 Pain Scale Used 0-10 Pain Scale Intake and Output: Intake & Output 08/21/22 08/22/22 08/23/22 08/24/22 11:59 11:59 11:59 11:59 Intake Total 740 1790 960 Output Total 500 600 775 Balance 240 1190 185 Weight 90.6 kg 90.6 kg Lab Results: Lab Results-Last 24 Hours 08/21/22 08/23/22 08/23/22 Range/Units 15:15 11:02 11:02 WBC 6.3 (4.0-10.5) x10^3/uL RBC 4.20 (4.1-5.6) x10^6/uL Hgb 9.1 L (12.5-18.0) g/dL Hct 31.4 L (42-50) % MCV 74.8 L (78-100) fL MCH 21.7 L (26-32) pg MCHC 29.0 L (32-36) g/dL RDW 19.7 H (11.5-14.0) % Plt Count 283 (150-450) x10^3/uL MPV 10.3 (7.5-11.0) fL Gran % 64.8 (36.0-66.0) % Immature Gran % (Auto) 0.6 H (0.00-0.4) % Nucleat RBC Rel Count 0.3 H (0.00-0.1) % Eos # (Auto) 0.19 (0-0.5) x10^3/uL Immature Gran # (Auto) 0.04 H (0.00-0.03) x10^3u/L Absolute Lymphs (auto) 1.36 (1.0-4.6) x10^3/uL Absolute Monos (auto) 0.59 (0.0-1.3) x10^3/uL Absolute Nucleated RBC 0.02 H (0.00-0.01) x10^3u/L Lymphocytes % 21.5 L (24.0-44.0) % Monocytes % 9.3 (0.0-12.0) % Eosinophils % 3.0 (0.00-5.0) % Basophils % 0.8 (0.0-0.4) % Absolute Granulocytes 4.11 (1.4-6.9) x10^3/uL Basophils # 0.05 (0-0.4) x10^3/uL PT (9.4-12.5) SECONDS INR (0.8-3.0) APTT (25.1-36.5) SECONDS Sodium 136 L (137-145) mmol/L Potassium 5.2 H (3.5-5.1) mmol/L Chloride 106 (98-107) mmol/L Carbon Dioxide 25 (22-30) mmol/L Anion Gap 10.0 (5-15) MEQ/L BUN 32 H (9-20) mg/dL Creatinine 1.67 H (0.66-1.25) mg/dL Estimated GFR 42.1 ML/MIN Glucose 95 (74-106) mg/dL Calcium 8.7 (8.4-10.2) mg/dL Magnesium (1.6-2.3) mg/dL Transferrin 319 H (149-313) mg/dL Total Bilirubin 0.60 (0.2-1.3) mg/dL AST 21 (17-59) U/L ALT 12 (0-50) U/L Alkaline Phosphatase 61 (38-126) U/L Serum Total Protein 7.0 (6.3-8.2) g/dL Albumin 4.0 (3.5-5.0) g/dL 08/23/22 08/24/22 08/24/22 Range/Units 11:02 04:41 04:41 WBC 6.1 (4.0-10.5) x10^3/uL RBC 4.07 L (4.1-5.6) x10^6/uL Hgb 8.8 L (12.5-18.0) g/dL Hct 30.1 L (42-50) % MCV 74.0 L (78-100) fL MCH 21.6 L (26-32) pg MCHC 29.2 L (32-36) g/dL RDW 20.4 H (11.5-14.0) % Plt Count 251 (150-450) x10^3/uL MPV 10.4 (7.5-11.0) fL Gran % 66.4 H (36.0-66.0) % Immature Gran % (Auto) 0.3 (0.00-0.4) % Nucleat RBC Rel Count 0.0 (0.00-0.1) % Eos # (Auto) 0.13 (0-0.5) x10^3/uL Immature Gran # (Auto) 0.02 (0.00-0.03) x10^3u/L Absolute Lymphs (auto) 1.29 (1.0-4.6) x10^3/uL Absolute Monos (auto) 0.53 (0.0-1.3) x10^3/uL Absolute Nucleated RBC 0.00 (0.00-0.01) x10^3u/L Lymphocytes % 21.3 L (24.0-44.0) % Monocytes % 8.7 (0.0-12.0) % Eosinophils % 2.1 (0.00-5.0) % Basophils % 1.2 (0.0-0.4) % Absolute Granulocytes 4.02 (1.4-6.9) x10^3/uL Basophils # 0.07 (0-0.4) x10^3/uL PT 11.9 (9.4-12.5) SECONDS INR 1.14 (0.8-3.0) APTT 29.6 (25.1-36.5) SECONDS Sodium 135 L (137-145) mmol/L Potassium 4.4 (3.5-5.1) mmol/L Chloride 105 (98-107) mmol/L Carbon Dioxide 25 (22-30) mmol/L Anion Gap 9.0 (5-15) MEQ/L BUN 26 H (9-20) mg/dL Creatinine 1.52 H (0.66-1.25) mg/dL Estimated GFR 46.9 ML/MIN Glucose 92 (74-106) mg/dL Calcium 8.5 (8.4-10.2) mg/dL Magnesium 2.1 (1.6-2.3) mg/dL Transferrin (149-313) mg/dL Total Bilirubin 0.50 (0.2-1.3) mg/dL AST 16 L (17-59) U/L ALT 12 (0-50) U/L Alkaline Phosphatase 59 (38-126) U/L Serum Total Protein 6.1 L (6.3-8.2) g/dL Albumin 3.5 (3.5-5.0) g/dL Radiology Exams: Radiology Procedures Category Date Time Status CHEST 1 VIEW (PORTABLE) Routine Exams 08/23/22 09:05 Completed Multi-Disciplinary Progress Notes: Multi-Disciplinary Progress Notes 08/23/22 10:41 Case Management Note by Nicki Rosales REVIEWED CHART AND S/W PATIENT- HE CONTINUES TO DENY ANY NEW NEEDS AT TIME OF DC Initialized on 08/23/22 10:41 - END OF NOTE Assessment/Plan (1) Iron deficiency anemia Current Visit: Yes Status: Acute Assessment & Plan: h/h stable at 8.8 Code(s): D50.9 - IRON DEFICIENCY ANEMIA, UNSPECIFIED (2) Atrial fibrillation Current Visit: Yes Status: Acute Code(s): I48.91 - UNSPECIFIED ATRIAL FIBRILLATION (3) HTN (hypertension) Current Visit: Yes Status: Chronic Qualifiers: Hypertension type: primary hypertension Qualified Code(s): I10 - Essential (primary) hypertension Code(s): I10 - ESSENTIAL (PRIMARY) HYPERTENSION (4) Hypothyroidism Current Visit: Yes Status: Acute Code(s): E03.9 - HYPOTHYROIDISM, UNSPECIFIED
[2022-08-24] MEDS ORDERED: Lactated Ringers 1,000 ML IV SCH (08:00)
--- NOTE | 2022-08-24 08:23 | PCM.CONS ---
History of Present Illness - Reason for Consult Chief Complaint: anemia Requesting Provider: ALLIE DANIELS Consulting Provider: ROGER HERNANDEZ MD History of Present Illness: hx per chart review and d/w pt "[facility] History & Physical Patient Name: RAEGAN MCKEON Date of : 1940 Patient Status: Observation Attending Provider: ALLIE DANIELS Date: 08/22/22 10:12 Initialization Date: 08/22/22 10:12 History of Present Illness - Chief Complaint Chief Complaint: anemia History of Present Illness: is a 81 year old male pt of the OR and Dr. Daniels with PMHx afib, COPD, HTN, CRF, hyperlipidemia, and PUD who was admitted through ER with anemia. He had labs recently at the OR and was called yesterday, advised that hemoglobin was 6.8 and told to go to nearest ER. Hgb was 6.2 here. The OR was contacted and approved pt to have blood transfusion here at [facility]. He is waiting for blood currently as he has antibodies. He denies taking NSAIDs or aspirin. Denies blood in the stool or black tarry stool. Has never required a blood transfusion. He says he feels "good" today but family member present says he always says that. Pt has been on xarelto for afib, but it was held for the past 2+ weeks for an eye surgery, then continued to be held for a R ear skin cancer removal last week by Dr. Mina. - Review of Systems Constitutional: Fatigue Respiratory: Short Of Breath (chronic) Cardiac: Chest Pain (chronic, with any activity - sees Dr. West Mckee.), Edema (feet bilat, since spring, but worse for the past 3 weeks.) Skin: Other (has several skin cancers on face) Medications & Allergies Home Medications: Home Medication List Omeprazole 20 MG [Prilosec 20 mg] 40 mg PO BID 12/23/12 [History Confirmed 08/22/22] Levothyroxine Sodium 100 Mcg [Synthroid 100 Mcg] 112 mcg PO DAILY 12/24/12 [History Confirmed 08/22/22] Acetaminophen [Tylenol Extra Strength Arthrit] 500 mg PO Q4H PRN PRN 07/02/13 [History Confirmed 08/22/22] Ipratropium/Albuterol Sulfate [Combivent Inhaler] 14.7 gm IH TID PRN 05/20/13 [History Confirmed 08/22/22] dilTIAZem HCL [Diltiazem ER] 300 mg PO DAILY 07/10/16 [History Confirmed 08/22/22] Atorvastatin Calcium 40 mg PO DAILY 07/26/21 [History Confirmed 08/22/22] Lisinopril 20 mg [Zestril 20 MG] 40 mg PO DAILY 01/21/22 [History Confirmed 08/22/22] Metoprolol Tartrate 50 mg PO BID 01/21/22 [History Confirmed 08/22/22] Fluorometholone Acetate [Flarex] 1 drop OP DAILY 08/22/22 [History Confirmed ] Prednisolone Acetate/Pf [Prednisolone Acet 1% Eye Drop] 1 drop OP DAILY 08/22/22 [History Confirmed 08/22/22] Allergies/Adverse Reactions: Allergies Allergy/AdvReac Type Severity Reaction Status Date / Time No Known Drug Allergies Allergy Verified 07/26/21 08:10 - Past Medical History Past Medical History: Yes Neurological History: Migraines, TIA ENT History: Cataracts, Other Cardiac History: Arrhythmia, High Cholesterol, Hypertension Respiratory History: COPD Endocrine Medical History: Adrenal Insufficiency, Hypothyroidism Musculoskelatal History: Osteoarthritis GI Medical History: GERD History: Other Pyscho-Social History: No Pertinent History Male Reproductive Disorders: No Pertinent History Comment: a-fib - Past Surgical History Past Surgical History: Yes Neuro Surgical History: No Pertinent History Cardiac History: Cardiac Catheterization, Internal Defibrillator, Pacemaker Respiratory Surgery: No Pertinent History GI Surgical History: Appendectomy Genitourinary Surgical Hx: No Pertinent History Musculskeletal Surgical Hx: Orthopedic Surgery Male Surgical History: No Pertinent History Other Surgical History: left knee-bone chip removed, bilateral cataracts removed, R hand trigger finger release., left elbow - Social History Smoking Status: Former smoker Exposure to second hand smoke: No Alcohol: None Drug Use: none" Medications & Allergies Home Medications: Home Medication List Omeprazole 20 MG [Prilosec 20 mg] 40 mg PO BID 12/23/12 [History Confirmed 08/22/22] Levothyroxine Sodium 100 Mcg [Synthroid 100 Mcg] 112 mcg PO DAILY 12/24/12 [History Confirmed 08/22/22] Acetaminophen [Tylenol Extra Strength Arthrit] 500 mg PO Q4H PRN PRN 05/20/13 [History Confirmed 08/22/22] Ipratropium/Albuterol Sulfate [Combivent Inhaler] 14.7 gm IH TID PRN 05/20/13 [History Confirmed 08/22/22] dilTIAZem HCL [Diltiazem ER] 300 mg PO DAILY 07/10/16 [History Confirmed 08/22/22] Atorvastatin Calcium 40 mg PO DAILY 07/26/21 [History Confirmed 08/22/22] Lisinopril 20 mg [Zestril 20 MG] 40 mg PO DAILY 01/21/22 [History Confirmed 08/22/22] Metoprolol Tartrate 50 mg PO BID 01/21/22 [History Confirmed 08/22/22] Fluorometholone Acetate [Flarex] 1 drop OP DAILY 08/22/22 [History Confirmed 08/22/22] Prednisolone Acetate/Pf [Prednisolone Acet 1% Eye Drop] 1 drop OP DAILY 08/22/22 [History Confirmed 08/22/22] Allergies/Adverse Reactions: Allergies Allergy/AdvReac Type Severity Reaction Status Date / Time No Known Drug Allergies Allergy Verified 07/26/21 08:10 - Past Medical History Past Medical History: Yes Neurological History: Migraines, TIA ENT History: Cataracts, Other Cardiac History: Arrhythmia, High Cholesterol, Hypertension Respiratory History: COPD Endocrine Medical History: Adrenal Insufficiency, Hypothyroidism Musculoskelatal History: Osteoarthritis GI Medical History: GERD History: Other Pyscho-Social History: No Pertinent History Male Reproductive Disorders: No Pertinent History Comment: a-fib - Past Surgical History Past Surgical History: Yes Neuro Surgical History: No Pertinent History Cardiac History: Cardiac Catheterization, Internal Defibrillator, Pacemaker Respiratory Surgery: No Pertinent History GI Surgical History: Appendectomy Genitourinary Surgical Hx: No Pertinent History Musculskeletal Surgical Hx: Orthopedic Surgery Male Surgical History: No Pertinent History Other Surgical History: left knee-bone chip removed, bilateral cataracts removed, R hand trigger finger release., left elbow - Social History Smoking Status: Former smoker Exposure to second hand smoke: No Alcohol: None Drug Use: none - Physical Exam Vital Signs: Vital Signs - 24 hr Temp Pulse Resp BP Pulse Ox 08/24/22 07:53 98.3 F 78 18 191/91 96 08/24/22 07:39 78 18 96 08/24/22 06:52 98.3 F 61 18 191/91 95 08/24/22 05:07 196/90 08/24/22 03:54 98.2 F 63 20 193/86 96 08/23/22 23:49 97.5 F 63 17 186/83 94 L 08/23/22 20:15 184/82 08/23/22 19:39 97.1 F 67 17 198/89 99 08/23/22 19:25 63 20 97 08/23/22 16:00 97.5 F 59 L 20 179/82 99 08/23/22 11:08 97.5 F 62 18 165/75 98 Results - Labs Lab/Micro Results: Lab Results-Last 24 Hours 08/21/22 08/23/22 08/23/22 Range/Units 15:15 11:02 11:02 WBC 6.3 (4.0-10.5) x10^3/uL RBC 4.20 (4.1-5.6) x10^6/uL Hgb 9.1 L (12.5-18.0) g/dL Hct 31.4 L (42-50) % MCV 74.8 L (78-100) fL MCH 21.7 L (26-32) pg MCHC 29.0 L (32-36) g/dL RDW 19.7 H (11.5-14.0) % Plt Count 283 (150-450) x10^3/uL MPV 10.3 (7.5-11.0) fL Gran % 64.8 (36.0-66.0) % Immature Gran % (Auto) 0.6 H (0.00-0.4) % Nucleat RBC Rel Count 0.3 H (0.00-0.1) % Eos # (Auto) 0.19 (0-0.5) x10^3/uL Immature Gran # (Auto) 0.04 H (0.00-0.03) x10^3u/L Absolute Lymphs (auto) 1.36 (1.0-4.6) x10^3/uL Absolute Monos (auto) 0.59 (0.0-1.3) x10^3/uL Absolute Nucleated RBC 0.02 H (0.00-0.01) x10^3u/L Lymphocytes % 21.5 L (24.0-44.0) % Monocytes % 9.3 (0.0-12.0) % Eosinophils % 3.0 (0.00-5.0) % Basophils % 0.8 (0.0-0.4) % Absolute Granulocytes 4.11 (1.4-6.9) x10^3/uL Basophils # 0.05 (0-0.4) x10^3/uL PT (9.4-12.5) SECONDS INR (0.8-3.0) APTT (25.1-36.5) SECONDS Sodium 136 L (137-145) mmol/L Potassium 5.2 H (3.5-5.1) mmol/L Chloride 106 (98-107) mmol/L Carbon Dioxide 25 (22-30) mmol/L Anion Gap 10.0 (5-15) MEQ/L BUN 32 H (9-20) mg/dL Creatinine 1.67 H (0.66-1.25) mg/dL Estimated GFR 42.1 ML/MIN Glucose 95 (74-106) mg/dL Calcium 8.7 (8.4-10.2) mg/dL Magnesium (1.6-2.3) mg/dL Transferrin 319 H (149-313) mg/dL Total Bilirubin 0.60 (0.2-1.3) mg/dL AST 21 (17-59) U/L ALT 12 (0-50) U/L Alkaline Phosphatase 61 (38-126) U/L Serum Total Protein 7.0 (6.3-8.2) g/dL Albumin 4.0 (3.5-5.0) g/dL 08/23/22 08/24/22 08/24/22 Range/Units 11:02 04:41 04:41 WBC 6.1 (4.0-10.5) x10^3/uL RBC 4.07 L (4.1-5.6) x10^6/uL Hgb 8.8 L (12.5-18.0) g/dL Hct 30.1 L (42-50) % MCV 74.0 L (78-100) fL MCH 21.6 L (26-32) pg MCHC 29.2 L (32-36) g/dL RDW 20.4 H (11.5-14.0) % Plt Count 251 (150-450) x10^3/uL MPV 10.4 (7.5-11.0) fL Gran % 66.4 H (36.0-66.0) % Immature Gran % (Auto) 0.3 (0.00-0.4) % Nucleat RBC Rel Count 0.0 (0.00-0.1) % Eos # (Auto) 0.13 (0-0.5) x10^3/uL Immature Gran # (Auto) 0.02 (0.00-0.03) x10^3u/L Absolute Lymphs (auto) 1.29 (1.0-4.6) x10^3/uL Absolute Monos (auto) 0.53 (0.0-1.3) x10^3/uL Absolute Nucleated RBC 0.00 (0.00-0.01) x10^3u/L Lymphocytes % 21.3 L (24.0-44.0) % Monocytes % 8.7 (0.0-12.0) % Eosinophils % 2.1 (0.00-5.0) % Basophils % 1.2 (0.0-0.4) % Absolute Granulocytes 4.02 (1.4-6.9) x10^3/uL Basophils # 0.07 (0-0.4) x10^3/uL PT 11.9 (9.4-12.5) SECONDS INR 1.14 (0.8-3.0) APTT 29.6 (25.1-36.5) SECONDS Sodium 135 L (137-145) mmol/L Potassium 4.4 (3.5-5.1) mmol/L Chloride 105 (98-107) mmol/L Carbon Dioxide 25 (22-30) mmol/L Anion Gap 9.0 (5-15) MEQ/L BUN 26 H (9-20) mg/dL Creatinine 1.52 H (0.66-1.25) mg/dL Estimated GFR 46.9 ML/MIN Glucose 92 (74-106) mg/dL Calcium 8.5 (8.4-10.2) mg/dL Magnesium 2.1 (1.6-2.3) mg/dL Transferrin (149-313) mg/dL Total Bilirubin 0.50 (0.2-1.3) mg/dL AST 16 L (17-59) U/L ALT 12 (0-50) U/L Alkaline Phosphatase 59 (38-126) U/L Serum Total Protein 6.1 L (6.3-8.2) g/dL Albumin 3.5 (3.5-5.0) g/dL - Radiology Impressions Radiology Exams & Impressions: Radiology Procedures Category Date Time Status CHEST 1 VIEW (PORTABLE) Routine Exams 08/23/22 09:05 Completed Assessment/Plan (1) Anemia Status: Acute Qualifiers: Anemia type: iron deficiency Iron deficiency anemia type: chronic blood loss Qualified Code(s): D50.0 - Iron deficiency anemia secondary to blood loss (chronic) Assessment & Plan: egd and colonoscopy to evaluate his anemia. Code(s): D64.9 - ANEMIA, UNSPECIFIED
[2022-08-24] MEDS ORDERED: Xylocaine-Mpf 2% 5 Ml Vial ONE (09:37)
[2022-08-24] MEDS ORDERED: DIPRIVAN 200 MG/20 ML IV ONE (09:37)
[2022-08-24] MEDS: Protonix 40MG Tablet PO SCH (10:17)
[2022-08-24] MEDS: Lopressor 50 MG PO SCH (10:17)
[2022-08-24] MEDS: SYNTHROID 112 MCG PO SCH (10:18)
[2022-08-24] MEDS: Cardizem CD PO SCH (10:18)
[2022-08-24] MEDS: PATIENT OWN MEDICATION OP SCH (10:18)
[2022-08-24] MEDS: ZOCOR 20MG PO SCH (10:18)
[2022-08-24] MEDS: PRED-FORTE 1% OPHTHALMIC OP SCH (10:19)
[2022-08-24] MEDS: Acular OPTH SOL OP SCH (10:19)
--- NOTE | 2022-08-24 12:12 | OP ---
SURGERY DATE/TIME: 08/24/2022 0856 PREOPERATIVE DIAGNOSES: Anemia. POSTOPERATIVE DIAGNOSES: 1) Normal EGD. 2) Fair preparation on the colonoscopy complete to terminal ileum, mild internal hemorrhoids without bleeding otherwise normal. No clear source for bleeding. PROCEDURES: 1) EGD 2) Colonoscopy. SURGEON: J Luis Stone M.D. ANESTHESIA: IV. CONDITION: Patient condition stable. COMPLICATIONS: None. SPECIMENS: None. HISTORY: The patient is an 81-year-old male that presented to the hospital with profound anemia. He does have a history of peptic ulcer disease remotely and takes proton pump inhibitor daily for that. He is not having any particular kobi bleeding per rectum or GI tract but endoscopy is requested. He appropriately respond to blood transfusion. DESCRIPTION OF PROCEDURE: The patient was brought to the endoscopy suite. He was placed supine position and prepared. Time out was performed. The gastroscope was inserted through the mouth, advanced through to the third portion of the duodenum. The duodenum is normal in appearance. The stomach is normal in appearance. Retroflexion is normal. The esophagus is normal. This is a completely normal exam of the upper. The stomach is suctioned out and scope withdrawn. The patient then prepared for colonoscopy. Digital rectal examination does show small prolapsing internal hemorrhoid in one column without any sign of recent bleeding. Digital rectal exam is otherwise normal. The scope is inserted and advanced to the terminal ileum. There is fair preparation of the colon. Very small lesions could be missed. There was greater than 6 minute withdrawal time. There is satisfactory evaluation of the colon and there is no identifiable source for the anemia on colonoscopy other than the small internal hemorrhoid. Retroflexion in the rectum is otherwise normal. The patient tolerated the procedure well. He was taken to recovery in stable condition.
[2022-08-24 13:42] VITALS: BP 120/57; PULSE 61
[2022-08-24] MEDS ORDERED: CLONIDINE 0.1 MG TABLET PO ONE (14:12)
--- NOTE | 2022-08-24 14:16 | PCM.DS ---
Discharge Summary Date of Admission: 08/21/22 18:08 Admitting Physician: [place] DO Consults: Consults on Case 08/23/22 09:00 Consult Surgery ROUTINE Primary Care Provider: ALLIE GUDINO Allergies Allergies No Known Drug Allergies Allergy (Verified 07/26/21 08:10) Hospital Summary - Hospital Course Hospital Course: patient was admitted with anemia, received a blood transfusion. heme + stool. had egd/colonoscopy with no active bleeding and internal hemorrhoids present - Vitals & Intake/Output Vital Signs: Vital Signs Temperature 97.3 F 08/24/22 11:20 Pulse Rate 61 08/24/22 13:40 Respiratory Rate 16 08/24/22 11:20 Blood Pressure 120/57 08/24/22 13:40 O2 Sat by Pulse Oximetry 96 08/24/22 11:20 Intake & Output: Intake & Output 08/22/22 08/23/22 08/24/22 08/25/22 11:59 11:59 11:59 11:59 Intake Total 740 1790 960 240 Output Total 500 600 775 Balance 240 1190 185 240 Weight 90.6 kg 90.6 kg - Lab Result Diagrams: 08/24/22 04:41 08/24/22 04:41 Lab Results-Last 24 Hrs: Lab Results-Last 24 Hours 08/24/22 08/24/22 Range/Units 04:41 04:41 WBC 6.1 (4.0-10.5) x10^3/uL RBC 4.07 L (4.1-5.6) x10^6/uL Hgb 8.8 L (12.5-18.0) g/dL Hct 30.1 L (42-50) % MCV 74.0 L (78-100) fL MCH 21.6 L (26-32) pg MCHC 29.2 L (32-36) g/dL RDW 20.4 H (11.5-14.0) % Plt Count 251 (150-450) x10^3/uL MPV 10.4 (7.5-11.0) fL Gran % 66.4 H (36.0-66.0) % Immature Gran % (Auto) 0.3 (0.00-0.4) % Nucleat RBC Rel Count 0.0 (0.00-0.1) % Eos # (Auto) 0.13 (0-0.5) x10^3/uL Immature Gran # (Auto) 0.02 (0.00-0.03) x10^3u/L Absolute Lymphs (auto) 1.29 (1.0-4.6) x10^3/uL Absolute Monos (auto) 0.53 (0.0-1.3) x10^3/uL Absolute Nucleated RBC 0.00 (0.00-0.01) x10^3u/L Lymphocytes % 21.3 L (24.0-44.0) % Monocytes % 8.7 (0.0-12.0) % Eosinophils % 2.1 (0.00-5.0) % Basophils % 1.2 (0.0-0.4) % Absolute Granulocytes 4.02 (1.4-6.9) x10^3/uL Basophils # 0.07 (0-0.4) x10^3/uL Sodium 135 L (137-145) mmol/L Potassium 4.4 (3.5-5.1) mmol/L Chloride 105 (98-107) mmol/L Carbon Dioxide 25 (22-30) mmol/L Anion Gap 9.0 (5-15) MEQ/L BUN 26 H (9-20) mg/dL Creatinine 1.52 H (0.66-1.25) mg/dL Estimated GFR 46.9 ML/MIN Glucose 92 (74-106) mg/dL Calcium 8.5 (8.4-10.2) mg/dL Magnesium 2.1 (1.6-2.3) mg/dL Total Bilirubin 0.50 (0.2-1.3) mg/dL AST 16 L (17-59) U/L ALT 12 (0-50) U/L Alkaline Phosphatase 59 (38-126) U/L Serum Total Protein 6.1 L (6.3-8.2) g/dL Albumin 3.5 (3.5-5.0) g/dL - Radiology Exams Ordered Rad Exams-Entire Visit: Radiology Procedures Category Date Time Status CHEST 1 VIEW (PORTABLE) Routine Exams 08/23/22 09:05 Completed - Procedures and Test Procedures and Tests throughout Hospitalization: Therapy Orders & Screens 08/22/22 10:03 Respiratory Therapy Assessment DAILY Comment: Diagnosis: anemia 08/22/22 10:15 Oxygen Nasal Cannula 2 lpm Comment: Diagnosis: anemia 08/23/22 09:06 EKG ROUTINE Comment: Diagnosis: anemia Discharge Exam General Appearance: no apparent distress, alert Neurologic Exam: alert, oriented x 3 Respiratory Exam: normal breath sounds, lungs clear, No respiratory distress Cardiovascular Exam: regular rate/rhythm, normal heart sounds Gastrointestinal/Abdomen Exam: soft, No tenderness, No mass Extremity Exam: normal inspection, normal range of motion Skin Exam: normal color, warm, dry Final Diagnosis/Problem List - Final Discharge Diagnosis/Problem (1) Iron deficiency anemia Current Visit: Yes Status: Acute Code(s): D50.9 - IRON DEFICIENCY ANEMIA, UNSPECIFIED (2) Atrial fibrillation Current Visit: Yes Status: Acute Code(s): I48.91 - UNSPECIFIED ATRIAL FIBRILLATION (3) HTN (hypertension) Current Visit: Yes Status: Chronic Code(s): I10 - ESSENTIAL (PRIMARY) HYPERTENSION (4) Hypothyroidism Current Visit: Yes Status: Acute Code(s): E03.9 - HYPOTHYROIDISM, UNSPECIFIED - Discharge Disposition: Home, Self-Care Condition: Stable Prescriptions: Continue Omeprazole 20 MG [Prilosec 20 mg] 40 mg PO BID Levothyroxine Sodium 100 Mcg [Synthroid 100 Mcg] 112 mcg PO DAILY Ipratropium/Albuterol Sulfate [Combivent Inhaler] 14.7 gm IH TID PRN PRN Reason: Shortness Of Breath/Wheezing Acetaminophen [Tylenol Extra Strength Arthrit] 500 mg PO Q4H PRN PRN PRN Reason: Pain dilTIAZem HCL [Diltiazem ER] 300 mg PO DAILY Atorvastatin Calcium 40 mg PO DAILY Metoprolol Tartrate 50 mg PO BID Lisinopril 20 mg [Zestril 20 MG] 40 mg PO DAILY Prednisolone Acetate/Pf [Prednisolone Acet 1% Eye Drop] 1 drop OP DAILY Fluorometholone Acetate [Flarex] 1 drop OP DAILY Outpatient Orders: CBC W DIFF Time Frame: 1 Week, Facility: [facility], Location: LABORATORY Follow up with: ALLIE GUDINO MD [Primary Care Provider] - ERLIN PARKER Jr., MD [Family Provider] -
== END 2022-08-24 15:42 | disposition home or self-care (01) ==
LOC: ED 14:15 → MED SURG 18:08
PROVIDERS: ADMIT Family Medicine; ATTEND Family Medicine
DX: D50.9 Iron deficiency anemia, unspecified (principal); I48.91 Unspecified atrial fibrillation; I12.9 Hypertensive chronic kidney disease with stage 1 through stage 4 chronic kidney disease, or unspecified chronic kidney disease; E03.9 Hypothyroidism, unspecified; E78.5 Hyperlipidemia, unspecified; N18.9 Chronic kidney disease, unspecified; J44.9 Chronic obstructive pulmonary disease, unspecified; K64.8 Other hemorrhoids; Z79.899 Other long term (current) drug therapy; Z79.01 Long term (current) use of anticoagulants; Z20.828 Contact with and (suspected) exposure to other viral communicable diseases; Z85.828 Personal history of other malignant neoplasm of skin
CPT/HCPCS: 00813; 0241U; 36415; 36430; 43235; 45378; 71045; 74176; 80048; 80053; 81015; 83036; 83540; 83550; 83735; 84466; 85014; 85018; 85025; 85045; 85046; 85610; 85730; 86850; 86870; 86880; 86900; 86901; 86906; 86922; 93005; 93268; 94760; 99100; 99285; G0008; G0328; G0378; P9016; 82274; 90662; J0360; J2704; A9270-GY

== ENCOUNTER 2023-02-11 11:03 | Inpatient (IN) | payer MEDICARE ==
--- NOTE | 2023-02-11 11:18 | ERPHSYRPT ---
- History of Present Illness Time Seen by Provider: 02/11/23 11:18 Source: patient Exam Limitations: no limitations Physician History: Patient BIBA after a mechanical fall. He reports he lost his balance, didn't hit his head and denies LOC. Patient denies dizziness, lightheadedness, CP, palpitations or SOB prior to fall. He fell on his left side mainly on his left elbow. He has some skin tears on his left arm that aren't bleeding currently. Patient's son reports that his Hb level has been low in the 9s. Occurred: just prior to arrival Reason for Fall: lost balance Injuries/Pain Location: upper extremity (left shoulder, elbow w/ skin tears), pelvis Loss of Consciousness: no loss of consciousness Severity of Pain-Max: moderate Severity of Pain-Current: mild Modifying Factors: Improves With: rest. Worsens With: movement Associated Symptoms (Fall): denies symptoms Allergies/Adverse Reactions: No Known Drug Allergies Allergy (Verified 02/11/23 11:06) Home Medications: Omeprazole 20 MG [Prilosec 20 mg] 40 mg PO BID 12/23/12 [History] Levothyroxine Sodium 100 Mcg [Synthroid 100 Mcg] 112 mcg PO DAILY 12/24/12 [History] Acetaminophen [Tylenol Extra Strength Arthrit] 500 mg PO Q4H PRN PRN 05/20/13 [History] Ipratropium/Albuterol Sulfate [Combivent Inhaler] 14.7 gm IH TID PRN 05/20/13 [History] dilTIAZem HCL [Diltiazem ER] 300 mg PO DAILY 07/10/16 [History] Atorvastatin Calcium 40 mg PO DAILY 07/26/21 [History] Lisinopril 20 mg [Zestril 20 MG] 40 mg PO DAILY 01/21/22 [History] Metoprolol Tartrate 50 mg PO BID 01/21/22 [History] Fluorometholone Acetate [Flarex] 1 drop OP DAILY 08/22/22 [History] Prednisolone Acetate/Pf [Prednisolone Acet 1% Eye Drop] 1 drop OP DAILY 08/22/22 [History] Hx Tetanus, Diphtheria Vaccination/Date Given: Yes Hx Influenza Vaccination/Date Given: Yes Hx Pneumococcal Vaccination/Date Given: Yes Travel Risk - Vaccine Status Have you recieved a Covid-19 vaccination: Yes [employer]: Pfizer - Vaccination Dates Date of 2cond Vaccination (if applicable): 12/2020 - Review of Systems Constitutional: No Symptoms Eyes: No Symptoms Ears, Nose, & Throat: No Symptoms Respiratory: No Symptoms Cardiac: No Symptoms Abdominal/Gastrointestinal: No Symptoms Genitourinary Symptoms: No Symptoms Musculoskeletal: Fall, Joint Pain (left shoulder, elbow, pelvis) Skin: Other (skin tear left arm and previous right arm skin tear) Neurological: No Symptoms Psychological: No Symptoms Endocrine: No Symptoms Hematologic/Lymphatic: Anemia Immunological/Allergic: No Symptoms All Other Systems: Reviewed and Negative - Past Medical History Pertinent Past Medical History: Yes Neurological History: Migraines, TIA ENT History: Cataracts, Other Cardiac History: Arrhythmia, High Cholesterol, Hypertension Respiratory History: COPD Endocrine Medical History: Adrenal Insufficiency, Hypothyroidism Musculoskeletal History: Osteoarthritis GI Medical History: GERD History: Other Psycho-Social History: No Pertinent History Male Reproductive Disorders: No Pertinent History Other Medical History: a-fib - Past Surgical History Past Surgical History: Yes Neuro Surgical History: No Pertinent History Cardiac: Cardiac Catheterization, Internal Defibrillator, Pacemaker Respiratory: No Pertinent History Gastrointestinal: Appendectomy Genitourinary: No Pertinent History Musculoskeletal: Orthopedic Surgery Male Surgical History: No Pertinent History Other Surgical History: left knee-bone chip removed, bilateral cataracts removed, R hand trigger finger release., left elbow - Social History Smoking Status: Former smoker Exposure to second hand smoke: No Drug Use: none Patient Lives Alone: Yes - Nursing Vital Signs Nursing Vital Signs: Initial Vital Signs Temperature 97.5 F 02/11/23 11:04 Pulse Rate 60 02/11/23 11:04 Respiratory Rate 20 02/11/23 11:04 Blood Pressure 191/102 02/11/23 11:04 O2 Sat by Pulse Oximetry 98 02/11/23 11:04 Pain Scale Pain Intensity 0 - [place] Coma Score Best Eye Response ([place]): (4) open spontaneously Best Verbal Response ([place]): (5) oriented Best Motor Response ([place]): (6) obeys commands [place] Total: 15 - Physical Exam General Appearance: no apparent distress Head Injury: no evidence of injury Eye Exam: PERRL/EOMI, eyes nml inspection ENT Exam: airway nml, nml ext.inspection Neck Exam: supple, full range of motion, normal alignment, normal inspection Respiratory/Chest Exam: No respiratory distress Cardiovascular Exam: normal heart sounds Gastrointestinal Exam: soft, No tenderness Back Exam: normal inspection, normal range of motion, No vertebral tenderness Extremity Exam: normal inspection, normal range of motion, capillary refill <3 sec, pelvis stable, hip tenderness, tenderness (left shoulder, elbow), No deformities, No pain with movement Neurologic Exam: alert, oriented x 3, cooperative Skin Exam: normal color, warm, dry, other (skin tear left arm) SpO2 Interpretation: normal O2 Delivery: Room Air - Course Nursing assessment & vital signs reviewed: Yes - Radiology Exams Left Shoulder X-ray Interpretation: Interpreted by me, Negative Pelvis X-ray Interpretation: Interpreted by me, Negative Left Elbow X-ray Interpretation: Interpreted by me, Non-displaced Fracture (minimally displaced medial epicondyle fracture, sent to radiologist for review) Ordered Tests: Active Orders 24 hr Category Date Time Status Wound Care ROUTINE Care 02/11/23 11:24 Active ELBOW (MINIMUM 3 VIEWS) Stat Exams 02/11/23 11:25 Taken PELVIS (1 OR 2 VIEWS) Stat Exams 02/11/23 11:26 Taken SHOULDER Stat Exams 02/11/23 11:26 Taken CBC Stat Lab 02/11/23 11:35 Completed CMP Stat Lab 02/11/23 11:35 Completed Occult Blood Stool [FECAL OCCULT BLOOD - SCREENING] Lab 02/11/23 12:04 Ordered Stat Transfer Order Routine Transfer 02/11/23 Ordered Medication Summary Generic Name Dose Route Start Last Admin Trade Name Freq PRN Reason Stop Dose Admin Ferric Sodium Gluconate 110 mls @ 110 mls/hr 02/11/23 13:00 02/11/23 12:39 Complex 125 mg/ Sodium IV 02/11/23 13:59 110 mls/hr Chloride 1300 SONIA Administration Sodium Chloride 1,000 mls @ 999 mls/hr 02/11/23 12:24 02/11/23 12:38 Sodium Chloride 0.9% 1000 Ml IV 02/11/23 13:24 999 mls/hr .[id number] STA Administration Discontinued Medications Generic Name Dose Route Start Last Admin Trade Name Freq PRN Reason Stop Dose Admin Sodium Chloride Confirm 02/11/23 12:37 Sodium Chloride 0.9% 1000 Ml Administered 02/11/23 12:38 Dose 1,000 mls @ ud .ROUTE .STK-MED ONE Labetalol HCl 20 mg 02/11/23 12:40 Labetalol Hcl 20 Mg/4 Ml Disp.Syringe IV 02/11/23 12:41 STAT ONE Lab/Rad Data: Laboratory Result Diagrams 02/11/23 11:35 02/11/23 11:35 Laboratory Results 02/11/23 02/11/23 Range/Units 11:35 11:35 WBC 5.2 (4.0-10.5) x10^3/uL RBC 3.96 L (4.1-5.6) x10^6/uL Hgb 8.4 L (12.5-18.0) g/dL Hct 29.7 L (42-50) % MCV 75.0 L (78-100) fL MCH 21.2 L (26-32) pg MCHC 28.3 L (32-36) g/dL RDW 21.1 H (11.5-14.0) % Plt Count 219 (150-450) x10^3/uL MPV 10.4 (7.5-11.0) fL Sodium 140 (137-145) mmol/L Potassium 4.6 (3.5-5.1) mmol/L Chloride 105 (98-107) mmol/L Carbon Dioxide 27 (22-30) mmol/L Anion Gap 12.7 (5-15) MEQ/L BUN 22 H (9-20) mg/dL Creatinine 1.59 H (0.66-1.25) mg/dL Estimated GFR 44.4 ML/MIN Glucose 108 H (74-106) mg/dL Calcium 8.8 (8.4-10.2) mg/dL Total Bilirubin 0.50 (0.2-1.3) mg/dL AST 22 (17-59) U/L ALT 10 (0-50) U/L Alkaline Phosphatase 74 (38-126) U/L Serum Total Protein 7.1 (6.3-8.2) g/dL Albumin 3.9 (3.5-5.0) g/dL - Progress Progress: unchanged Progress Note: 02/11/23 11:40 No concern for head injury so imaging deferred. Patient did have pain at left shoulder, elbow and pelvis. XR ordered to evaluate for injury. Wounds were cleaned and xeroform, telfa and kerlix dressing applied. CBC and CMP ordered due to hx of anemia. 02/11/23 12:25 Hb 8.4, 9.2 on 02/07, his Iron saturation was 6% and total iron was 23 on 02/07. Cr is at baseline 1.59 today. Will give IV iron and 1L NS. I discussed the option of admission for precert for short term rehab, but patient doesn't want to go to SNF. Dr. Gudino is out of town this week and encouraged patient to f/u w/ physician w/in the system tomorrow to get outpatient rehab and HHC. Patient also wanting setup for outpatient wound care. 02/11/23 13:01 Spoke w/ Dr. Ramires who agrees to accept patient for admission. Counseled pt/family regarding: lab results, diagnosis, need for follow-up, rad results Medical Desision Making - Independent Historian Additional History obtained from: Child - Diagnostic Testing Diagnostic test were ordered, analyzed, and reviewed by me: Yes Radiological Interpretation: Interpreted by me - Risk of complications The pt has a mod risk of morbidity or mortality based on: Need for prescription drug management - Departure Departure Disposition: Observation Clinical Impression: Anemia, Frequent falls, Loss of balance, Chronic kidney disease, HTN (hypertension), Skin tear of elbow without complication, Skin tear of upper arm without complication, Atrial fibrillation, Current use of anticoagulant therapy, Iron deficiency anemia, Hypertensive urgency Condition: Stable Critical Care Time: No Referrals: ALLIE GUDINO MD [Primary Care Provider] - Follow up/PCP as directed Instructions: Preventing Falls in Older Adults
[2023-02-11 11:42] LABS: Hematocrit 29.7 % (42-50); Hemoglobin 8.4 g/dL (12.5-18.0); Mean Corpuscular Hemoglobin 21.2 pg (26-32); Mean Corpuscular Hgb Concent. 28.3 g/dL (32-36); Mean Platelet Volume 10.4 fL (7.5-11.0); Platelet Count 219 x10^3/uL (150-450); Red Blood Count 3.96 x10^6/uL (4.1-5.6); Red Cell Distribution Width 21.1 % (11.5-14.0); White Blood Count 5.2 x10^3/uL (4.0-10.5)
[2023-02-11 11:56] LABS: ALBUMIN 3.9 g/dL (3.5-5.0); ANION GAP 12.7 MEQ/L (5-15); BILIRUBIN,TOTAL 0.5 mg/dL (0.2-1.3); Calcium 8.8 mg/dL (8.4-10.2); Creatinine 1 1.59 mg/dL (0.66-1.25); EST GLOMERULAR FILTRATION RATE 44.4 ML/MIN; Potassium 4.6 mmol/L (3.5-5.1); Total Protein 7.1 g/dL (6.3-8.2)
[2023-02-11] MEDS ORDERED: Ferrlecit 62.5 MG/5 Ml IV ONE (12:15)
[2023-02-11] MEDS ORDERED: Sodium Chloride 0.9% 1000 ML 1,000 ML IV STA (12:24)
[2023-02-11] MEDS ORDERED: Sodium Chloride 0.9% 1000 ML 1,000 ML ONE (12:37)
[2023-02-11] MEDS ORDERED: TRANDATE 20 MG/4 ML SYRINGE IV ONE ×2 (12:40→13:06)
[2023-02-11] MEDS ORDERED: SODIUM CHLORIDE 0.9% IV SCH (13:00)
[2023-02-11] MEDS ORDERED: FERRLECIT IV SCH (13:00)
[2023-02-11 14:13] LABS: INFLUENZA A NEGATIVE (NEGATIVE); INFLUENZA B NEGATIVE (NEGATIVE); RESPIRATORY SYNCTIAL VIRUS NEGATIVE (NEGATIVE); SARS-CoV-2 Xpert Express NEGATIVE (NEGATIVE)
[2023-02-11 14:23] LABS: Slide Review YES
[2023-02-11] MEDS ORDERED: DUONEB 0.5-3 MG/3 ml Neb IH PRN (16:50)
[2023-02-11] MEDS ORDERED: TYLENOL EXTRA STRENGTH 500 MG PO PRN (18:06)
[2023-02-11] MEDS ORDERED: Lopressor 50 MG PO ONE (19:00)
--- NOTE | 2023-02-11 19:42 | XRAY ---
Indication: Pain following fall. Comparison: None AP pelvis demonstrates osteopenia, mild left hip degenerative changes, moderate degenerative changes visualized lower lumbar spine, and heavy scattered vascular calcifications. No other bony, articular, or soft tissue abnormalities.
--- NOTE | 2023-02-11 19:42 | XRAY ---
Indication: Pain following fall. Comparison: None 3 view left shoulder demonstrates osteopenia, moderate acromioclavicular degenerative changes, left perihilar calcified granulomas, and incompletely visualized left pacemaker. No other bony, articular, or soft tissue abnormalities.
--- NOTE | 2023-02-11 19:44 | XRAY ---
Indication: Pain following fall. Comparison: None 3 view left elbow demonstrates osteopenia and tiny medial/lateral epicondyle spurring. No other bony, articular, or soft tissue abnormalities. Comment: Preliminary interpretation made by [facility]. No critical discrepancy.
[2023-02-11] MEDS: ZOCOR 20MG PO SCH (21:45)
[2023-02-11] MEDS ORDERED: Toprol Xl 50 MG PO SCH (22:00)
[2023-02-11] MEDS ORDERED: COSOPT OPHTHALMIC 10 ML OP SCH (22:00)
[2023-02-11] MEDS ORDERED: Acular OPTH SOL OP SCH (22:00)
[2023-02-11] MEDS ORDERED: LIPITOR 40MG PO SCH (22:00)
[2023-02-11] MEDS ORDERED: Zestril 5 MG ONE (22:48)
[2023-02-11] MEDS ORDERED: Cardizem CD ONE (22:49)
[2023-02-12 05:04] LABS: BASOPHIL % 1.4 % (0.0-0.4); Basophil (Absolute #) 0.07 x10^3/uL (0-0.4); Eosinophil % 5.5 % (0.00-5.0); Eosinophil (Absolute #) 0.28 x10^3/uL (0-0.5); Hematocrit 26.7 % (42-50); Hemoglobin 7.6 g/dL (12.5-18.0); IMMATURE GRAN # 0.01 x10^3u/L (0.00-0.03); IMMATURE GRAN % 0.2 % (0.00-0.4); Lymphocyte (Absolute #) 1.17 x10^3/uL (1.0-4.6); Lymphocytes % 22.8 % (24.0-44.0); Mean Corpuscular Hemoglobin 21.1 pg (26-32); Mean Corpuscular Hgb Concent. 28.5 g/dL (32-36); Mean Platelet Volume 10.8 fL (7.5-11.0); Monocytes % 9.7 % (0.0-12.0); Neutrophil % 60.4 % (36.0-66.0); Platelet Count 206 x10^3/uL (150-450); Red Blood Count 3.61 x10^6/uL (4.1-5.6); Red Cell Distribution Width 21.2 % (11.5-14.0); White Blood Count 5.1 x10^3/uL (4.0-10.5)
[2023-02-12 05:09] LABS: ANION GAP 9.4 MEQ/L (5-15); Calcium 8.5 mg/dL (8.4-10.2); Creatinine 1 1.49 mg/dL (0.66-1.25); EST GLOMERULAR FILTRATION RATE 47.9 ML/MIN; Potassium 3.7 mmol/L (3.5-5.1)
[2023-02-12 05:57] LABS: TSH, 3RD Generation 14.5 mIU/L (0.47-4.68)
[2023-02-12] MEDS ORDERED: MEDICATION INTERVENTION MC SCH (07:15)
[2023-02-12] MEDS ORDERED: DUONEB 0.5-3 MG/3 ml Neb IH PRN (07:16)
[2023-02-12 08:13] LABS: Slide Review 1 YES
[2023-02-12] MEDS ORDERED: Cardizem CD PO SCH (10:00)
[2023-02-12] MEDS ORDERED: NON-FORMULARY ITEM (Omeprazole [Omeprazole] 40 MG Capsule.Dr) PO SCH (10:00)
[2023-02-12] MEDS ORDERED: Zestril 5 MG PO SCH (10:00)
[2023-02-12] MEDS ORDERED: NON-FORMULARY ITEM (Diltiazem Hcl [Diltiazem 24hr Er] 120 MG Cap.Sa.24h) PO SCH (10:00)
[2023-02-12] MEDS ORDERED: FLUOROMETHOLONE ACETATE OP SCH (10:00)
[2023-02-12] MEDS: Protonix 40MG Tablet PO SCH (10:09)
[2023-02-12] MEDS: Lopressor 50 MG PO SCH ×2 (10:09→22:22)
[2023-02-12] MEDS: SYNTHROID 112 MCG PO SCH (10:09)
[2023-02-12] MEDS: COSOPT OPHTHALMIC 10 ML OP SCH ×2 (10:09→22:26)
[2023-02-12] MEDS: PATIENT OWN MEDICATION OP SCH (10:45)
[2023-02-12] MEDS: Acular OPTH SOL OP SCH ×3 (10:46→22:22)
[2023-02-12] MEDS: FEOSOL 325 MG PO SCH ×2 (12:14→22:22)
[2023-02-12] MEDS: Zestril 20 MG PO SCH (12:14)
[2023-02-12 12:15] LABS: Absolute Neutrophil Ct (ANC) 3.49 x10^3/uL (1.4-6.9); BASOPHIL % 1.8 % (0.0-0.4); Eosinophil % 4.2 % (0.00-5.0); Eosinophil (Absolute #) 0.23 x10^3/uL (0-0.5); Hemoglobin 8.3 g/dL (12.5-18.0); IMMATURE GRAN # 0.02 x10^3u/L (0.00-0.03); IMMATURE GRAN % 0.4 % (0.00-0.4); Lymphocyte (Absolute #) 1.11 x10^3/uL (1.0-4.6); Lymphocytes % 20.2 % (24.0-44.0); Mean Cell Volume 75.1 fL (78-100); Mean Corpuscular Hemoglobin 21.5 pg (26-32); Mean Corpuscular Hgb Concent. 28.6 g/dL (32-36); Mean Platelet Volume 10.4 fL (7.5-11.0); Monocyte (Absolute #) 0.55 x10^3/uL (0.0-1.3); Neutrophil % 63.4 % (36.0-66.0); Platelet Count 219 x10^3/uL (150-450); Red Blood Count 3.86 x10^6/uL (4.1-5.6); Red Cell Distribution Width 21.4 % (11.5-14.0); White Blood Count 5.5 x10^3/uL (4.0-10.5)
[2023-02-12] MEDS: Cardizem CD PO SCH (12:15)
--- NOTE | 2023-02-12 12:17 | XRAY ---
Indication: Left-sided weakness. Stroke. Multiple contiguous axial images obtained through the head without contrast. Comparison: January 22, 2022 Again age-appropriate global atrophy and minimal periventricular degenerative micro-ischemia bilaterally. Right thalamus demonstrates new 1.6 x 1.8 x 1.9 cm focus of acute parenchymal hemorrhage with mild surrounding edema. Right brain stem/tho demonstrates new 6 mm focus of hypoattenuation favoring ischemia of uncertain chronicity. No significant mass effect or midline shifting. Fourth ventricle is midline without hydrocephalus. Bony calvarium intact. Visualized paranasal sinuses and mastoid air cells are clear. Impression: 1. New small focus parenchymal hemorrhage right thalamus with surrounding edema as detailed. 2. New 6 mm focus ischemia right brain stem/tho of uncertain chronicity. 3. Again global atrophy and degenerative micro-ischemia within normal limits for patient's age. Comment: Telephone report was given to ordering clinician, Dr. Vail at 1210 hrs. on February 12, 2023.
[2023-02-12 14:36] LABS: Slide Review 1 YES
[2023-02-12] MEDS: Miralax Powder 17GM PACKET PO SCH (16:11)
[2023-02-12 20:19] LABS: Absolute Neutrophil Ct (ANC) 3.17 x10^3/uL (1.4-6.9); BASOPHIL % 1.2 % (0.0-0.4); Basophil (Absolute #) 0.07 x10^3/uL (0-0.4); Eosinophil % 4.6 % (0.00-5.0); Eosinophil (Absolute #) 0.26 x10^3/uL (0-0.5); Hematocrit 27.8 % (42-50); Hemoglobin 7.8 g/dL (12.5-18.0); IMMATURE GRAN # 0.02 x10^3u/L (0.00-0.03); IMMATURE GRAN % 0.4 % (0.00-0.4); Lymphocytes % 26.6 % (24.0-44.0); Mean Cell Volume 75.3 fL (78-100); Mean Corpuscular Hemoglobin 21.1 pg (26-32); Mean Corpuscular Hgb Concent. 28.1 g/dL (32-36); Mean Platelet Volume 10.6 fL (7.5-11.0); Monocyte (Absolute #) 0.61 x10^3/uL (0.0-1.3); Monocytes % 10.8 % (0.0-12.0); Neutrophil % 56.4 % (36.0-66.0); Platelet Count 215 x10^3/uL (150-450); Red Blood Count 3.69 x10^6/uL (4.1-5.6); Red Cell Distribution Width 21.3 % (11.5-14.0); White Blood Count 5.6 x10^3/uL (4.0-10.5)
[2023-02-12 20:57] LABS: Slide Review 1 YES
[2023-02-12] MEDS: ZOCOR 20MG PO SCH (22:22)
[2023-02-12] MEDS ORDERED: Cardizem 30 MG PO ONE (22:38)
[2023-02-12] MEDS ORDERED: Zestril 5 MG PO ONE (22:41)
[2023-02-12] MEDS ORDERED: Cardizem CD PO ONE (22:51)
--- NOTE | 2023-02-12 23:55 | PCM.HP ---
History of Present Illness - Chief Complaint Chief Complaint: ANEMIA, FREQUENT FALLS History of Present Illness: is a 82 year old male presented to ER in respiratory distress Medications & Allergies Home Medications: Home Medication List Acetaminophen 500 mg [Tylenol Extra Strength 500 mg] 500 mg PO Q4HPRN PRN 02/11/23 [History Confirmed 02/11/23] Atorvastatin Calcium 40 mg PO HS 02/11/23 [History Confirmed 02/11/23] Fluorometholone Acetate [Flarex] 5 ml OP DAILY 02/11/23 [History Confirmed 02/11/23] Ipratropium/Albuterol Sulfate [Combivent Respimat Common Canister] 1 puff IH Q4HPRN PRN 02/11/23 [History Confirmed 02/11/23] Ketorolac Tromethamine 0.5% [Acular OPTH SINA] 5 ml OP TID 02/11/23 [History Confirmed 02/11/23] Levothyroxine Sodium 112 Mcg [Synthroid 112 Mcg] 112 mcg PO DAILY 02/11/23 [History Confirmed 02/11/23] Metoprolol Tartrate 50 mg [Lopressor 50 MG] 50 mg PO BID 02/11/23 [History Confirmed 02/11/23] Omeprazole 40 mg PO DAILY 02/11/23 [History Confirmed 02/11/23] Timolol Maleate/Dorzolam HCl [Cosopt Ophthalmic 10 ml] 1 drop OP BID 02/11/23 [History Confirmed 02/11/23] Diltiazem HCl [Cardizem LA] 300 mg PO DAILY 02/12/23 [History Confirmed 02/12/23] Ferrous Sulfate 325 mg [Feosol 325 mg] 325 mg PO BID 02/12/23 [History Confirmed 02/12/23] Lisinopril 20 mg [Zestril 20 MG] 40 mg PO DAILY 02/12/23 [History Confirmed 02/12/23] Allergies/Adverse Reactions: Allergies Allergy/AdvReac Type Severity Reaction Status Date / Time No Known Drug Allergies Allergy Verified 02/11/23 11:06 - Past Medical History Past Medical History: Yes Neurological History: Migraines, TIA ENT History: Cataracts, Other Cardiac History: Arrhythmia, High Cholesterol, Hypertension Respiratory History: COPD Endocrine Medical History: Adrenal Insufficiency, Hypothyroidism Musculoskelatal History: Osteoarthritis GI Medical History: GERD History: No Pertinent History Pyscho-Social History: No Pertinent History Male Reproductive Disorders: No Pertinent History Comment: A-FIB - Past Surgical History Past Surgical History: Yes Neuro Surgical History: No Pertinent History Cardiac History: Cardiac Catheterization, Internal Defibrillator, Pacemaker Respiratory Surgery: No Pertinent History GI Surgical History: Appendectomy Genitourinary Surgical Hx: No Pertinent History Musculskeletal Surgical Hx: Orthopedic Surgery Male Surgical History: No Pertinent History Other Surgical History: left knee-bone chip removed, bilateral cataracts removed, R hand trigger finger release., left elbow - Social History Smoking Status: Former smoker How long have you smoked: 40 YEARS Exposure to second hand smoke: No Alcohol: None Drug Use: none - Physical Exam Vital Signs: Vital Signs - 24 hr Temp Pulse Resp BP Pulse Ox 02/12/23 23:00 98.6 F 59 L 18 171/77 96 02/12/23 19:00 97.1 F 60 18 150/70 93 L 02/12/23 17:31 63 20 94 L 02/12/23 15:00 99.6 F 60 18 172/75 94 L 02/12/23 11:00 97.7 F 60 17 144/65 94 L 02/12/23 07:33 72 18 96 02/12/23 07:06 98 F 77 18 163/87 96 02/12/23 07:04 97.8 F 59 L 17 186/80 95 02/12/23 04:10 97.2 F 59 L 20 154/61 97 Wound Assessment: Skin/Wound Assessment Wound/Incision Assessment Start: 02/11/23 16:29 Text: Status: Active Freq: Q6H Protocol: Document 02/12/23 20:00 WW (Rec: 02/12/23 20:18 WW [id number]) Wound/Incision Assessment Left Upper Arm Wound Assessment Shift Assessment Wound Type Skin Tear Dressing Status Dry & Intact Drainage Amount Minimal Drainage Description Sanguineous Drainage Odor None/Absent General Appearance Bleeding Packing Type Gauze Roll Primary Dressing Gauze Pads Wound Photo Photo Taken Yes Results - Labs Lab/Micro Results: Lab Results-Last 24 Hours 03/27/23 03/27/23 03/27/23 Range/Units 04:23 04:23 04:23 WBC 5.1 (4.0-10.5) x10^3/uL RBC 3.61 L (4.1-5.6) x10^6/uL Hgb 7.6 L (12.5-18.0) g/dL Hct 26.7 L (42-50) % MCV 74.0 L (78-100) fL MCH 21.1 L (26-32) pg MCHC 28.5 L (32-36) g/dL RDW 21.2 H (11.5-14.0) % Plt Count 206 (150-450) x10^3/uL MPV 10.8 (7.5-11.0) fL Gran % 60.4 (36.0-66.0) % Immature Gran % (Auto) 0.2 (0.00-0.4) % Nucleat RBC Rel Count 0.0 (0.00-0.1) % Eos # (Auto) 0.28 (0-0.5) x10^3/uL Immature Gran # (Auto) 0.01 (0.00-0.03) x10^3u/L Absolute Lymphs (auto) 1.17 (1.0-4.6) x10^3/uL Absolute Monos (auto) 0.50 (0.0-1.3) x10^3/uL Absolute Nucleated RBC 0.00 (0.00-0.01) x10^3u/L Lymphocytes % 22.8 L (24.0-44.0) % Monocytes % 9.7 (0.0-12.0) % Eosinophils % 5.5 H (0.00-5.0) % Basophils % 1.4 (0.0-0.4) % Absolute Granulocytes 3.10 (1.4-6.9) x10^3/uL Basophils # 0.07 (0-0.4) x10^3/uL Sodium 140 (137-145) mmol/L Potassium 3.7 (3.5-5.1) mmol/L Chloride 107 (98-107) mmol/L Carbon Dioxide 27 (22-30) mmol/L Anion Gap 9.4 (5-15) MEQ/L BUN 19 (9-20) mg/dL Creatinine 1.49 H (0.66-1.25) mg/dL Estimated GFR 47.9 ML/MIN Glucose 97 (74-106) mg/dL Calcium 8.5 (8.4-10.2) mg/dL Vitamin B12 362 (239-931) pg/mL TSH 3rd Generation 14.500 H (0.47-4.68) mIU/L Slides for Path Review YES 02/12/23 02/12/23 Range/Units 12:08 20:15 WBC 5.5 5.6 (4.0-10.5) x10^3/uL RBC 3.86 L 3.69 L (4.1-5.6) x10^6/uL Hgb 8.3 L 7.8 L (12.5-18.0) g/dL Hct 29.0 L 27.8 L (42-50) % MCV 75.1 L 75.3 L (78-100) fL MCH 21.5 L 21.1 L (26-32) pg MCHC 28.6 L 28.1 L (32-36) g/dL RDW 21.4 H 21.3 H (11.5-14.0) % Plt Count 219 215 (150-450) x10^3/uL MPV 10.4 10.6 (7.5-11.0) fL Gran % 63.4 56.4 (36.0-66.0) % Immature Gran % (Auto) 0.4 0.4 (0.00-0.4) % Nucleat RBC Rel Count 0.0 0.0 (0.00-0.1) % Eos # (Auto) 0.23 0.26 (0-0.5) x10^3/uL Immature Gran # (Auto) 0.02 0.02 (0.00-0.03) x10^3u/L Absolute Lymphs (auto) 1.11 1.50 (1.0-4.6) x10^3/uL Absolute Monos (auto) 0.55 0.61 (0.0-1.3) x10^3/uL Absolute Nucleated RBC 0.00 0.00 (0.00-0.01) x10^3u/L Lymphocytes % 20.2 L 26.6 (24.0-44.0) % Monocytes % 10.0 10.8 (0.0-12.0) % Eosinophils % 4.2 4.6 (0.00-5.0) % Basophils % 1.8 1.2 (0.0-0.4) % Absolute Granulocytes 3.49 3.17 (1.4-6.9) x10^3/uL Basophils # 0.10 0.07 (0-0.4) x10^3/uL Sodium (137-145) mmol/L Potassium (3.5-5.1) mmol/L Chloride (98-107) mmol/L Carbon Dioxide (22-30) mmol/L Anion Gap (5-15) MEQ/L BUN (9-20) mg/dL Creatinine (0.66-1.25) mg/dL Estimated GFR ML/MIN Glucose (74-106) mg/dL Calcium (8.4-10.2) mg/dL Vitamin B12 (239-931) pg/mL TSH 3rd Generation (0.47-4.68) mIU/L Slides for Path Review YES YES - Radiology Impressions Radiology Exams & Impressions: Radiology Procedures Category Date Time Status ELBOW (MINIMUM 3 VIEWS) Stat Exams 02/11/23 11:25 Completed HEAD WITHOUT CONTRAST [CT] Stat Exams 02/12/23 11:22 Completed PELVIS (1 OR 2 VIEWS) Stat Exams 02/11/23 11:26 Completed SHOULDER Stat Exams 02/11/23 11:26 Completed
[2023-02-13 04:35] LABS: Absolute Neutrophil Ct (ANC) 2.72 x10^3/uL (1.4-6.9); BASOPHIL % 1.7 % (0.0-0.4); Basophil (Absolute #) 0.09 x10^3/uL (0-0.4); Eosinophil (Absolute #) 0.31 x10^3/uL (0-0.5); Hematocrit 28.8 % (42-50); Hemoglobin 8.2 g/dL (12.5-18.0); IMMATURE GRAN # 0.02 x10^3u/L (0.00-0.03); IMMATURE GRAN % 0.4 % (0.00-0.4); Lymphocyte (Absolute #) 1.45 x10^3/uL (1.0-4.6); Mean Cell Volume 74.4 fL (78-100); Mean Corpuscular Hemoglobin 21.2 pg (26-32); Mean Corpuscular Hgb Concent. 28.5 g/dL (32-36); Mean Platelet Volume 10.5 fL (7.5-11.0); Monocyte (Absolute #) 0.58 x10^3/uL (0.0-1.3); Monocytes % 11.2 % (0.0-12.0); Neutrophil % 52.7 % (36.0-66.0); Platelet Count 225 x10^3/uL (150-450); Red Blood Count 3.87 x10^6/uL (4.1-5.6); Red Cell Distribution Width 21.3 % (11.5-14.0); White Blood Count 5.2 x10^3/uL (4.0-10.5)
[2023-02-13 05:05] LABS: Slide Review 1 YES
[2023-02-13] MEDS: Zestril 20 MG PO SCH (08:26)
[2023-02-13] MEDS: Protonix 40MG Tablet PO SCH (08:26)
[2023-02-13] MEDS: FEOSOL 325 MG PO SCH ×2 (08:27→21:06)
[2023-02-13] MEDS: Cardizem CD PO SCH (08:27)
[2023-02-13] MEDS: Lopressor 50 MG PO SCH ×2 (08:27→21:06)
[2023-02-13] MEDS: COSOPT OPHTHALMIC 10 ML OP SCH ×2 (08:28→21:07)
[2023-02-13] MEDS: Acular OPTH SOL OP SCH ×3 (08:28→21:04)
[2023-02-13] MEDS: Miralax Powder 17GM PACKET PO SCH (08:28)
[2023-02-13] MEDS: SYNTHROID 112 MCG PO SCH (08:34)
[2023-02-13] MEDS: PATIENT OWN MEDICATION OP SCH (08:47)
--- NOTE | 2023-02-13 11:59 | PCM.NOTE ---
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 Brother is PA and agrees to rehab at [facility]. Objective Exam Wound Assessment: Skin/Wound Assessment Wound/Incision Assessment Start: 02/11/23 16:29 Text: Status: Active Freq: Q6H Protocol: Document 02/13/23 02:00 WW (Rec: 02/13/23 02:11 WW [id number]) Wound/Incision Assessment Left Upper Arm Wound Assessment Shift Assessment Wound Type Skin Tear Dressing Status Dry & Intact Drainage Amount Minimal Drainage Description Sanguineous Drainage Odor None/Absent General Appearance Bleeding Packing Type Gauze Roll Primary Dressing Gauze Pads Wound Photo Photo Taken Yes OBJECTIVE DATA Vital Signs: Vital Signs - 24 hr Temp Pulse Resp BP Pulse Ox 02/13/23 07:03 59 L 18 96 02/13/23 07:00 97.3 F 59 L 17 172/78 96 02/13/23 03:00 97.1 F 59 L 18 156/93 98 02/12/23 23:00 98.6 F 59 L 18 171/77 96 02/12/23 19:00 97.1 F 60 18 150/70 93 L 02/12/23 17:31 63 20 94 L 02/12/23 15:00 99.6 F 60 18 172/75 94 L Pain Assessment - Last Documented Pain Intensity 0 Intake and Output: Intake & Output 02/10/23 02/11/23 02/12/23 02/13/23 11:59 11:59 11:59 11:59 Intake Total 780 1280 Output Total 1400 1100 Balance -620 180 Weight 87.6 kg 82.1 kg Lab Results: Lab Results-Last 24 Hours 02/12/23 02/12/23 02/13/23 Range/Units 12:08 20:15 04:21 WBC 5.5 5.6 5.2 (4.0-10.5) x10^3/uL RBC 3.86 L 3.69 L 3.87 L (4.1-5.6) x10^6/uL Hgb 8.3 L 7.8 L 8.2 L (12.5-18.0) g/dL Hct 29.0 L 27.8 L 28.8 L (42-50) % MCV 75.1 L 75.3 L 74.4 L (78-100) fL MCH 21.5 L 21.1 L 21.2 L (26-32) pg MCHC 28.6 L 28.1 L 28.5 L (32-36) g/dL RDW 21.4 H 21.3 H 21.3 H (11.5-14.0) % Plt Count 219 215 225 (150-450) x10^3/uL MPV 10.4 10.6 10.5 (7.5-11.0) fL Gran % 63.4 56.4 52.7 (36.0-66.0) % Immature Gran % (Auto) 0.4 0.4 0.4 (0.00-0.4) % Nucleat RBC Rel Count 0.0 0.0 0.0 (0.00-0.1) % Eos # (Auto) 0.23 0.26 0.31 (0-0.5) x10^3/uL Immature Gran # (Auto) 0.02 0.02 0.02 (0.00-0.03) x10^3u/L Absolute Lymphs (auto) 1.11 1.50 1.45 (1.0-4.6) x10^3/uL Absolute Monos (auto) 0.55 0.61 0.58 (0.0-1.3) x10^3/uL Absolute Nucleated RBC 0.00 0.00 0.00 (0.00-0.01) x10^3u/L Lymphocytes % 20.2 L 26.6 28.0 (24.0-44.0) % Monocytes % 10.0 10.8 11.2 (0.0-12.0) % Eosinophils % 4.2 4.6 6.0 H (0.00-5.0) % Basophils % 1.8 1.2 1.7 (0.0-0.4) % Absolute Granulocytes 3.49 3.17 2.72 (1.4-6.9) x10^3/uL Basophils # 0.10 0.07 0.09 (0-0.4) x10^3/uL Slides for Path Review YES YES YES Radiology Exams: Radiology Procedures Category Date Time Status ELBOW (MINIMUM 3 VIEWS) Stat Exams 02/11/23 11:25 Completed HEAD WITHOUT CONTRAST [CT] Stat Exams 02/12/23 11:22 Completed PELVIS (1 OR 2 VIEWS) Stat Exams 02/11/23 11:26 Completed SHOULDER Stat Exams 02/11/23 11:26 Completed Multi-Disciplinary Progress Notes: Multi-Disciplinary Progress Notes 02/13/23 10:09 Case Management Note by Ev Maldonado Addendum entered by Ev Maldonado RN 02/13/23 11:29: SPOKE WITH PATIENT AND BROTHER(POA), PHILIP, ABOUT WHICH REHAB FACILITY THEY WOULD PREFER. THEY ARE AGREEABLE WITH [facility] FOR REHAB AFTER DISCHARGE. Original Note: S/W PATIENT AND HE STATES HE WOULD BE AGREEABLE TO REHAB AT [place] BUT NOT [facility]. BROTHER STATED YESTERDAY THAT HE DID NOT WANT [facility] ([facility]) BUT [facility] OK. SPOKE WITH ESE José AND SHE STATED THAT PATIENT WAS MORE FLACCID ON LEFT AND WOULD REQUIRE REHAB. SHE ALSO SPOKE WITH PATIENT ABOUT REHAB AND HE WAS AGREEABLE. Initialized on 02/13/23 10:09 - END OF NOTE
[2023-02-13] MEDS: ZOCOR 20MG PO SCH (21:06)
[2023-02-14 07:41] VITALS: PULSE 60; O2SAT 95
[2023-02-14] MEDS: Zestril 20 MG PO SCH (08:36)
[2023-02-14] MEDS: Protonix 40MG Tablet PO SCH (08:37)
[2023-02-14] MEDS: FEOSOL 325 MG PO SCH (08:37)
[2023-02-14] MEDS: PATIENT OWN MEDICATION OP SCH (08:37)
[2023-02-14] MEDS: SYNTHROID 112 MCG PO SCH (08:41)
[2023-02-14] MEDS: COSOPT OPHTHALMIC 10 ML OP SCH (08:42)
[2023-02-14] MEDS: Miralax Powder 17GM PACKET PO SCH (08:42)
[2023-02-14] MEDS: Acular OPTH SOL OP SCH (08:48)
[2023-02-14 11:24] VITALS: BP 164/69
[2023-02-14] MEDS: Cardizem CD PO SCH (12:12)
[2023-02-14] MEDS: Lopressor 50 MG PO SCH (12:13)
[2023-02-14] MEDS ORDERED: PROVENTIL 2.5 MG/3 ML NEB IH PRN (12:28)
--- NOTE | 2023-02-14 12:35 | PCM.DS ---
Discharge Summary Date of Admission: 02/12/23 12:10 Admitting Physician: ASH DIXON Consults: Consults on Case 02/12/23 12:22 Consult Neurology ROUTINE Primary Care Provider: ALLIE GUDINO Allergies Allergies No Known Drug Allergies Allergy (Verified 02/11/23 11:06) Hospital Summary - Hospital Course Hospital Course: Pt is an 82 yo male pt with chronic anemia, frequent falls, ckd, HTN, CAD who had fallen at home and come in through ER. Was found to have had hemorrhagic CVA (and new parenchymal hemorrhage R thalamus and new 6mm ischemia at R brain stem/tho of uncertain chronicity). He will be transferred to [facility] today for therapy. He has had a cough recently, so CXR will be obtained before placement. He does have skin tears from the fall. Also had some hypertensive urgency here. - Vitals & Intake/Output Vital Signs: Vital Signs Temperature 96.9 F 02/14/23 11:23 Pulse Rate 60 02/14/23 11:23 Respiratory Rate 19 02/14/23 11:23 Blood Pressure 164/69 02/14/23 11:23 O2 Sat by Pulse Oximetry 95 02/14/23 11:23 Intake & Output: Intake & Output 02/12/23 02/13/23 02/14/23 02/15/23 11:59 11:59 11:59 11:59 Intake Total 780 1280 980 Output Total 1400 1100 575 Balance -620 180 405 Weight 82.1 kg - Lab Result Diagrams: 02/13/23 04:21 02/12/23 04:23 Lab Results-Last 24 Hrs: Lab Results-Last 24 Hours 02/13/23 Range/Units 11:01 Stool Occult Blood NEGATIVE (NEGATIVE) - Radiology Exams Ordered Rad Exams-Entire Visit: Radiology Procedures Category Date Time Status CHEST 2 VIEWS (PA AND LAT) Urgent Exams 02/14/23 12:27 Ordered - Procedures and Test Procedures and Tests throughout Hospitalization: Therapy Orders & Screens 02/11/23 15:30 PT Eval & Treat ( Order) ONCE Reason for Eval:: Frequent falls, deconditioning, need for HHC Diagnosis: Frequent fall, anemia 02/11/23 16:29 OT Screen per Nursing Assess ONCE Comment: Protocol Order Physician Instructions: Greater than 3 points order OT Admission Screening Reason For Exam: Triggered on Admission Diagnosis: ANEMIA, FREQUENT FALLS Open Wound/Cellutlitis/Pressure Ulcers: Yes Acute Fx/ORIF/Change in wt bearing status: Yes Severe MUSCULOSKELETAL pain: No ADL Dysfunction: Yes Acute CVA w/Hemiparesis/Hemiplegia: No Decreased Functional Mobility/Strength: Yes Sprain/Strain: No Acute Post-op Mobility Dysfunction: No Total Points: 14 PT Screen per Nursing Assess ONCE Comment: Protocol Order Physician Instructions: Greater than 3 points order PT Admission Screenin Reason For Exam: Triggered on Admission Diagnosis: ANEMIA, FREQUENT FALLS Open Wound/Cellutlitis/Pressure Ulcers: Yes Acute Fx/ORIF/Change in wt bearing status: Yes Severe MUSCULOSKELETAL pain: No ADL Dysfunction: Yes Acute CVA w/Hemiparesis/Hemiplegia: No Decreased Functional Mobility/Strength: Yes Sprain/Strain: No Acute Post-op Mobility Dysfunction: No Total Points: 14 02/11/23 16:50 Oxygen Nasal Cannula 2 lpm Comment: Diagnosis: ANEMIA, FREQUENT FALLS 02/11/23 16:51 Respiratory Therapy Assessment DAILY Comment: Diagnosis: ANEMIA, FREQUENT FALLS 02/12/23 15:29 Speech Therapy Eval & Treat [ST Eval & Treat (MD Order)] .as ordered Comment: Physician Instructions: Reason For Exam: Evaluate: Yes Treat: Yes Reason for Eval: STROKE LEFT SIDED WEAKNESS Diagnosis: ANEMIA, FREQUENT FALLS 02/12/23 15:53 OT Eval and Treat (MD Order) ROUTINE Comment: Consulting Provider: Physician Instructions: Reason For Exam: Diagnosis: ANEMIA, FREQUENT FALLS Discharge Exam General Appearance: no apparent distress, alert, other (sitting on side of bed; PT/OT are working with pt.) Neurologic Exam: oriented x 3, cooperative Eye Exam: eyes nml inspection Ears, Nose, Throat Exam: moist mucous membranes Neck Exam: normal inspection Respiratory Exam: normal breath sounds, lungs clear, No crackles/rales, No rhonchi, No wheezing Cardiovascular Exam: regular rate/rhythm, normal heart sounds, No murmur Wound Assessment: Skin/Wound Assessment Wound/Incision Assessment Start: 02/11/23 16:29 Text: Status: Active Freq: Q6H Protocol: Document 02/14/23 08:00 AR (Rec: 02/14/23 09:19 AR [id number]) Wound/Incision Assessment Right Upper Arm Wound Assessment Shift Assessment Wound Type Skin Tear Drainage Amount None Primary Dressing vaseline gauze Secondary Dressing telfa Comment DRESSING CDI Left Upper Arm Wound Assessment Shift Assessment Wound Type Skin Tear Drainage Amount None Comment DRESSING CDI Wound Photo Photo Taken Yes Final Diagnosis/Problem List - Final Discharge Diagnosis/Problem (1) Hemorrhagic cerebrovascular accident (CVA) Current Visit: Yes Status: Acute Assessment & Plan: Doing well. To rehab facility today, if CXR is fine. Code(s): I61.9 - NONTRAUMATIC INTRACEREBRAL HEMORRHAGE, UNSPECIFIED (2) Flaccid monoplegia of upper extremity Current Visit: Yes Status: Acute Code(s): G83.20 - MONOPLEGIA OF UPPER LIMB AFFECTING UNSPECIFIED SIDE (3) Skin tear Current Visit: Yes Status: Acute Code(s): CSM9020 - (4) Anemia Current Visit: Yes Status: Acute Code(s): D64.9 - ANEMIA, UNSPECIFIED (5) Frequent falls Current Visit: Yes Status: Acute Code(s): R29.6 - REPEATED FALLS (6) Hypertensive urgency Current Visit: Yes Status: Acute Code(s): I16.0 - HYPERTENSIVE URGENCY (7) HTN (hypertension) Current Visit: Yes Status: Chronic Code(s): I10 - ESSENTIAL (PRIMARY) HYPERTENSION (8) Chronic renal insufficiency Current Visit: No Status: Chronic Code(s): N18.9 - CHRONIC KIDNEY DISEASE, UNSPECIFIED (9) Hypothyroidism Current Visit: No Status: Acute Assessment & Plan: TSH is elevated; may be related to acute illness. PCP to check after pt is d/c. Code(s): E03.9 - HYPOTHYROIDISM, UNSPECIFIED (10) Cough Current Visit: Yes Status: Acute Code(s): R05.9 - COUGH, UNSPECIFIED - Discharge Disposition: Home, Self-Care Condition: Stable Prescriptions: No Action Levothyroxine Sodium 112 Mcg [Synthroid 112 Mcg] 112 mcg PO DAILY Ipratropium/Albuterol Sulfate [Combivent Respimat Common Canister] 1 puff IH Q4HPRN PRN PRN Reason: Shortness Of Breath/Wheezing Atorvastatin Calcium 40 mg PO HS Acetaminophen 500 mg [Tylenol Extra Strength 500 mg] 500 mg PO Q4HPRN PRN PRN Reason: Pain And/Or Fever Omeprazole 40 mg PO DAILY Metoprolol Tartrate 50 mg [Lopressor 50 MG] 50 mg PO BID Ketorolac Tromethamine 0.5% [Acular OPTH SINA] 5 ml OP TID Timolol Maleate/Dorzolam HCl [Cosopt Ophthalmic 10 ml] 1 drop OP BID Fluorometholone Acetate [Flarex] 5 ml OP DAILY Ferrous Sulfate 325 mg [Feosol 325 mg] 325 mg PO BID Lisinopril 20 mg [Zestril 20 MG] 40 mg PO DAILY Diltiazem HCl [Cardizem LA] 300 mg PO DAILY Follow up with: ALLIE GUDINO MD [Primary Care Provider] -
--- NOTE | 2023-02-14 12:38 | PCM.DCORD ---
- Discharge Disposition: DC TO ANY "OTHER" [facility] Condition: Stable Prescriptions: New Albuterol 2.5 mg/3 ml Neb [Proventil 2.5 mg/3 ml Neb] 2.5 mg IH Q4H PRN PRN 30 Days #120 unit PRN Reason: SOB, wheeze, or cough Continue Levothyroxine Sodium 112 Mcg [Synthroid 112 Mcg] 112 mcg PO DAILY Ipratropium/Albuterol Sulfate [Combivent Respimat Common Canister] 1 puff IH Q4HPRN PRN PRN Reason: Shortness Of Breath/Wheezing Atorvastatin Calcium 40 mg PO HS Acetaminophen 500 mg [Tylenol Extra Strength 500 mg] 500 mg PO Q4HPRN PRN PRN Reason: Pain And/Or Fever Omeprazole 40 mg PO DAILY Metoprolol Tartrate 50 mg [Lopressor 50 MG] 50 mg PO BID Ketorolac Tromethamine 0.5% [Acular OPTH SINA] 5 ml OP TID Timolol Maleate/Dorzolam HCl [Cosopt Ophthalmic 10 ml] 1 drop OP BID Fluorometholone Acetate [Flarex] 5 ml OP DAILY Ferrous Sulfate 325 mg [Feosol 325 mg] 325 mg PO BID Lisinopril 20 mg [Zestril 20 MG] 40 mg PO DAILY Diltiazem HCl [Cardizem LA] 300 mg PO DAILY Follow up with: ALLIE GUDINO MD [Primary Care Provider] -
--- NOTE | 2023-02-14 13:22 | XRAY ---
Indication: Cough. Comparison: August 23, 2022 Portable chest is inflated and clear. Heart not enlarged again with incidental left dual-lead pacemaker and left hilar calcified nodes. Bony thorax intact again with osteopenia and mild degenerative changes. Limited upper abdomen again demonstrates splenic artery calcifications. Impression: Nonacute chest with chronic features.
[2023-02-14 13:28] LABS: ANION GAP 13.2 MEQ/L (5-15); Calcium 8.6 mg/dL (8.4-10.2); Creatinine 1 1.68 mg/dL (0.66-1.25); EST GLOMERULAR FILTRATION RATE 41.7 ML/MIN; Potassium 4.1 mmol/L (3.5-5.1)
== END 2023-02-14 15:40 | DRG 66 ==
LOC: ED 11:03 → MED SURG 15:26 → OBSVTOIN 02-12 12:10
PROVIDERS: ADMIT Family Medicine; ATTEND Family Medicine
DX: I61.9 Nontraumatic intracerebral hemorrhage, unspecified (principal); G83.22 Monoplegia of upper limb affecting left dominant side; S51.012A Laceration without foreign body of left elbow, initial encounter; D64.9 Anemia, unspecified; W19.XXXA Unspecified fall, initial encounter; R29.6 Repeated falls; I16.0 Hypertensive urgency; I12.9 Hypertensive chronic kidney disease with stage 1 through stage 4 chronic kidney disease, or unspecified chronic kidney disease; N18.9 Chronic kidney disease, unspecified; E03.9 Hypothyroidism, unspecified; R05.9 Cough, unspecified; I48.91 Unspecified atrial fibrillation; E78.5 Hyperlipidemia, unspecified; Z79.01 Long term (current) use of anticoagulants; Z79.899 Other long term (current) drug therapy; Z20.828 Contact with and (suspected) exposure to other viral communicable diseases
CPT/HCPCS: 0241U; 36000; 36415; 70450; 71045; 72170; 73030; 73080; 80048; 80053; 82607; 84443; 85025; 85027; 93268; 94640; 94760; 96105; 96360; 96374; 96375; 97110; 97112; 97161; 97165; 97530; 99285; G0328; G0378; 82274; J2916; A9270-GY

== ENCOUNTER 2023-10-09 11:48 | Emergency (ER) | payer MEDICARE, OTHER ==
[2023-10-09 12:42] VITALS: TEMP 96.5
[2023-10-09 13:14] VITALS: PULSE 60
--- NOTE | 2023-10-09 13:16 | ERPHSYRPT ---
- History of Present Illness Time Seen by Provider: 10/09/23 12:30 Source: patient Exam Limitations: no limitations Patient Subjective Stated Complaint: Rectal pain Triage Nursing Assessment: Patient brought back to ED per EMS and transferred to bed with assist of 2. Patient A+O X3. Patient's skin pink, warm and dry. Patient complains of rectal pain for the past couple of days. Patient has been having diarrhea also, but has been taking Miralax the past few days. Patient has abscess near rectum. Patient complains of pain 4/10. Physician History: Patient 83-year-old male presents to our ED EMS for evaluation of perirectal pain. There is a perirectal mass observed on exam. Patient states his symptoms started 2 days ago and have gotten progressively worse. Patient admits to 2 days of diarrhea. Patient attributes his diarrhea to MiraLAX. Patient was constipated before taking the MiraLAX. Patient's pain rated 2 out of 10. No trauma no fever. No nausea vomiting or diaphoresis. Symptoms are moderate in intensity. Pain reproduced with palpation. Pain improves somewhat with rest. Patient's brother is at the bedside. They voiced no other complaints or concerns at this time. Portions of this note were created with voice recognition technology. There may be grammatical, spelling, punctuation or sound alike errors Timing/Duration: day(s) Severity: moderate Modifying Factors: Improves With: nothing Associated Symptoms: other (Diarrhea) Allergies/Adverse Reactions: No Known Drug Allergies Allergy (Verified 10/09/23 12:06) Home Medications: Acetaminophen 500 mg [Tylenol Extra Strength 500 mg] 500 mg PO Q4HPRN PRN 02/11/23 [History] Atorvastatin Calcium 40 mg PO HS 02/11/23 [History] Fluorometholone Acetate [Flarex] 5 ml OP DAILY 02/11/23 [History] Ipratropium/Albuterol Sulfate [Combivent Respimat Common Canister] 1 puff IH Q4 HPRN PRN 02/11/23 [History] Ketorolac Tromethamine 0.5% [Acular OPTH SINA] 5 ml OP TID 02/11/23 [History] Levothyroxine Sodium 112 Mcg [Synthroid 112 Mcg] 112 mcg PO DAILY 02/11/23 [History] Metoprolol Tartrate 50 mg [Lopressor 50 MG] 50 mg PO BID 02/11/23 [History] Omeprazole 40 mg PO DAILY 02/11/23 [History] Timolol Maleate/Dorzolam HCl [Cosopt Ophthalmic 10 ml] 1 drop OP BID 02/11/23 [History] Diltiazem HCl [Cardizem LA] 300 mg PO DAILY 02/12/23 [History] Ferrous Sulfate 325 mg [Feosol 325 mg] 325 mg PO BID 02/12/23 [History] Lisinopril 20 mg [Zestril 20 MG] 40 mg PO DAILY 02/12/23 [History] Hx Tetanus, Diphtheria Vaccination/Date Given: Yes Hx Influenza Vaccination/Date Given: Yes Hx Pneumococcal Vaccination/Date Given: Yes Immunizations Up to Date: Yes Travel Risk - International Travel Have you traveled outside of the country in past 3 weeks: No - Coronavirus Screening Are you exhibiting any of the following symptoms?: No Close contact with a COVID-19 positive Pt in past 14-21 Days: No - Vaccine Status Have you recieved a Covid-19 vaccination: Yes [employer]: [employer] - Vaccination Dates Date of 2cond Vaccination (if applicable): [id number] - Review of Systems Constitutional: No Symptoms, No Fever, No Chills Eyes: No Symptoms Ears, Nose, & Throat: No Symptoms Respiratory: No Symptoms, No Cough, No Dyspnea Cardiac: No Symptoms, No Chest Pain, No Edema, No Syncope Abdominal/Gastrointestinal: No Symptoms, No Abdominal Pain, No Nausea, No Vomit ing, No Diarrhea Genitourinary Symptoms: No Symptoms, No Dysuria Musculoskeletal: No Symptoms, No Back Pain, No Neck Pain Skin: No Symptoms, No Rash Neurological: No Symptoms, No Dizziness, No Focal Weakness, No Sensory Changes Psychological: No Symptoms Endocrine: No Symptoms Hematologic/Lymphatic: No Symptoms Immunological/Allergic: No Symptoms All Other Systems: Reviewed and Negative - Past Medical History Pertinent Past Medical History: Yes Neurological History: Migraines, TIA ENT History: Cataracts, Other Cardiac History: Arrhythmia, High Cholesterol, Hypertension Respiratory History: COPD Endocrine Medical History: Adrenal Insufficiency, Hypothyroidism Musculoskeletal History: Osteoarthritis GI Medical History: GERD History: No Pertinent History Psycho-Social History: No Pertinent History Male Reproductive Disorders: No Pertinent History Other Medical History: A-FIB - Past Surgical History Past Surgical History: Yes Neuro Surgical History: No Pertinent History Cardiac: Cardiac Catheterization, Internal Defibrillator, Pacemaker Respiratory: No Pertinent History Gastrointestinal: Appendectomy Genitourinary: No Pertinent History Musculoskeletal: Orthopedic Surgery Male Surgical History: No Pertinent History Other Surgical History: left knee-bone chip removed, bilateral cataracts removed, R hand trigger finger release., left elbow - Social History Smoking Status: Former smoker How long have you smoked: 40 YEARS Exposure to second hand smoke: No Drug Use: none Patient Lives Alone: No - Nursing Vital Signs Nursing Vital Signs: Initial Vital Signs Temperature 96.5 F 10/09/23 12:06 Pulse Rate 64 10/09/23 12:06 Respiratory Rate 18 10/09/23 12:06 Blood Pressure 177/101 10/09/23 12:06 O2 Sat by Pulse Oximetry 95 10/09/23 12:06 Pain Scale Pain Intensity 4 - Physical Exam General Appearance: no apparent distress, alert Eye Exam: PERRL/EOMI, eyes nml inspection Ears, Nose, Throat Exam: normal ENT inspection, TMs normal, pharynx normal, moist mucous membranes Neck Exam: normal inspection, non-tender, supple, full range of motion Respiratory Exam: normal breath sounds, lungs clear, No respiratory distress Cardiovascular Exam: regular rate/rhythm, normal heart sounds, normal peripheral pulses Gastrointestinal/Abdomen Exam: soft, normal bowel sounds, other (Tender palpable perirectal mass on physical exam. Overlying soft tissue intact. No signs of trauma.), No tenderness, No mass Back Exam: normal inspection, normal range of motion, No CVA tenderness, No vertebral tenderness Extremity Exam: normal inspection, normal range of motion, pelvis stable Neurologic Exam: alert, oriented x 3, cooperative, normal mood/affect, nml cerebellar function, nml station & gait, sensation nml, No motor deficits Skin Exam: normal color, warm, dry, No rash Lymphatic Exam: No adenopathy SpO2: 95 - Course Nursing assessment & vital signs reviewed: Yes - CT Exams Abdomen/Pelvis CT Interpretation: Tele-radiologist Report (Rectal fecal impaction, left adrenal adenoma, bilateral renal cysts, aortoiliac calcifications) Ordered Tests: Active Orders 24 hr Category Date Time Status IV Insertion STAT Care 10/09/23 13:10 Active ABDOMEN AND PELVIS W CONTRAST [CT] Stat Exams 10/09/23 12:59 Completed CBC W DIFF Stat Lab 10/09/23 13:10 Completed CMP Stat Lab 10/09/23 13:10 Completed Manual Differential NC Stat Lab 10/09/23 13:10 Completed Medication Summary Generic Name Dose Route Start Last Admin Trade Name Jessica PRN Reason Stop Dose Admin Sodium Chloride 1,000 mls @ 100 mls/hr 10/09/23 13:15 10/09/23 14:45 Sodium Chloride 0.9% 1000 Ml IV 11/08/23 13:14 100 mls/hr .Q10H SONIA Administration Lab/Rad Data: Laboratory Result Diagrams 10/09/23 13:10 10/09/23 13:10 Laboratory Results 10/09/23 10/09/23 Range/Units 13:10 13:10 WBC 12.2 H (4.0-10.5) x10^3/uL RBC 3.68 L (4.1-5.6) x10^6/uL Hgb 11.1 L (12.5-18.0) g/dL Hct 34.0 L (42-50) % MCV 92.4 (78-100) fL MCH 30.2 (26-32) pg MCHC 32.6 (32-36) g/dL RDW 16.9 H (11.5-14.0) % Plt Count 156 (150-450) x10^3/uL MPV 10.5 (7.5-11.0) fL Segmented Neutrophils 86 H (36.-66.) % Lymphocytes (Manual) 10 L (24-44) % Monocytes (Manual) 3 (0.0-12.0) % Eosinophils (Manual) 1 (0.00-3.0) % Toxic Granulation 1+ Platelet Estimate NORMAL (NORMAL) RBC Morphology ABNORMAL Anisocytosis 1+ Sodium 133 L (137-145) mmol/L Potassium 4.6 (3.5-5.1) mmol/L Chloride 100 (98-107) mmol/L Carbon Dioxide 24 (22-30) mmol/L Anion Gap 12.6 (5-15) MEQ/L BUN 23 H (9-20) mg/dL Creatinine 1.25 (0.66-1.25) mg/dL Estimated GFR 56.8 ML/MIN Glucose 110 H (74-106) mg/dL Calcium 8.9 (8.4-10.2) mg/dL Total Bilirubin 0.50 (0.2-1.3) mg/dL AST 22 (17-59) U/L ALT 16 (0-50) U/L Alkaline Phosphatase 112 (38-126) U/L Serum Total Protein 7.1 (6.3-8.2) g/dL Albumin 3.8 (3.5-5.0) g/dL - Progress Progress: improved Progress Note: 83-year-old male presents to our ED for evaluation of a perirectal mass. CT scan does not show a perirectal abscess. However there is a palpable area adjacent to the rectum. CT also shows fecal stasis with new rectal fecal impaction. Patient was disimpacted in our ED by RN. There is some mucoid impaction of the bronchus however patient is asymptomatic as far as his pulmonary system is concerned. Lung exam was normal. Bilateral renal cyst observed. Left adrenal adenoma observed on CAT scan as well. Patient referred to Dr. Stone general surgery for further evaluation and treatment of this relatively superficial perirectal mass. Patient will be discharged home. He voices no other complaints or concerns at this time. Laboratory work-up reveals a slight leukocytosis of 12.2. Portions of this note were created with voice recognition technology. There may be grammatical, spelling, punctuation or sound alike errors Complexity of problems addressed is moderate acute complicated. Complexity of data reviewed and analyzed is moderate. Test ordered test reviewed. Results analyzed and correlated clinically. Risk complication and or risk of morbidity/mortality of patient management is low. Patient be discharged home. Time spent to discharge patient is approximately 15 minutes. Plan of care established for shared decision making. Referral to general surgery provided. Vital stable. No social determinants of health present impede follow-up. Portions of this note were created with voice recognition technology. There may be grammatical, spelling, punctuation or sound alike errors 10/09/23 16:21 Counseled pt/family regarding: lab results, diagnosis - Departure Departure Disposition: Home Clinical Impression: Adenoma of left adrenal gland, Bilateral renal cysts, Aortoiliac calcification, Fecal impaction in rectum Condition: Stable Critical Care Time: No Referrals: ALLIE GUDINO MD [Primary Care Provider] - Follow up/PCP as directed STONE,KAIDEN O [ACTIVE STAFF] - Follow up/PCP as directed Additional Instructions: Discharge/Care Plan RAEGAN MCKEON was seen on 10/09/23 in the Emergency Room. The patient was counseled regarding Diagnosis,Lab results, Imaging studies, need for follow up and when to return to the Emergency Room. Prescriptions given: Discharge Note I have spoken with the patient and/or caregivers. I have explained the patient's condition, diagnosis and treatment plan based on the information available to me at this time. I have answered the patient's and/or caregiver's questions and addressed any concerns. The patient and/or caregivers have as good understanding of the patient's diagnosis, condition and treatment plan as can be expected at this point. The vital signs have been stable. The patient's condition is stable and appropriate for discharge from the emergency department. The patient will pursue further outpatient evaluation with the primary care physician or other designated or consulting physician as outlined in the discharge instructions. The patient and/or caregivers are agreeable to this plan of care and follow-up instructions have been explained in detail. The patient and/or caregivers have received these instruction. The patient/and or caregivers are aware that any significant change in condition or worsening of symptoms should prompt an immediate return to this or the closest emergency department or call 911.
[2023-10-09 13:19] LABS: Hemoglobin 11.1 g/dL (12.5-18.0); Mean Cell Volume 92.4 fL (78-100); Mean Corpuscular Hemoglobin 30.2 pg (26-32); Mean Corpuscular Hgb Concent. 32.6 g/dL (32-36); Mean Platelet Volume 10.5 fL (7.5-11.0); Platelet Count 156 x10^3/uL (150-450); Red Blood Count 3.68 x10^6/uL (4.1-5.6); Red Cell Distribution Width 16.9 % (11.5-14.0); White Blood Count 12.2 x10^3/uL (4.0-10.5)
[2023-10-09 13:33] LABS: ALBUMIN 3.8 g/dL (3.5-5.0); ANION GAP 12.6 MEQ/L (5-15); BILIRUBIN,TOTAL 0.5 mg/dL (0.2-1.3); Calcium 8.9 mg/dL (8.4-10.2); Creatinine 1 1.25 mg/dL (0.66-1.25); EST GLOMERULAR FILTRATION RATE 56.8 ML/MIN; Potassium 4.6 mmol/L (3.5-5.1); Total Protein 7.1 g/dL (6.3-8.2)
[2023-10-09 13:49] LABS: Eosinophil 1 % (0.00-3.0); Lymphocytes 10 % (24-44); Monocyte 3 % (0.0-12.0); Neutrophils 86 % (36.-66.); Total Cells Counted 100
[2023-10-09 13:50] LABS: ANISOCYTOSIS 1+; Platelet Estimate NORMAL (NORMAL); Toxic Granulation 1+
[2023-10-09] MEDS ORDERED: Sodium Chloride 0.9% 1000 ML 1,000 ML ONE (14:44)
[2023-10-09] MEDS: Sodium Chloride 0.9% 1000 ML 1,000 ML IV SCH (14:45)
--- NOTE | 2023-10-09 14:59 | XRAY ---
Indication: Pain with bowel movement. Constipation. Hemorrhoids. Multiple contiguous axial images obtained through the abdomen and pelvis using 80 cc Isovue 370 contrast. Comparison: August 21, 2022 Lung bases demonstrates slight worsening opacification of the posterior medial bronchioles presumed from mucous/mucoid impaction. Left lung bases clear. Heart not enlarged. Noncontrasted stomach and bowel loops nonobstructed with again appendectomy. Worsening mild/moderate diffuse scattered colonic fecal debris, especially right hemicolon. New moderate rectal fecal impaction. No free fluid/air. Stable small left adrenal adenoma and small bilateral renal cysts. Remaining liver, gallbladder, anchors, spleen, adrenal glands, kidneys, ureters, and bladder are unremarkable. Again moderate scattered aortoiliac calcifications. No AAA or pathologic retroperitoneal lymphadenopathy. Osseous structures intact again with osteopenia, mild multilevel lumbar degenerative spondylosis, and tube benign left sacral bone islands. Impression: 1. CT abdomen/pelvis with contrast demonstrates worsening diffuse fecal stasis with new rectal fecal impaction. 2. Again mucous/mucoid impaction bronchioles of the posterior medial right lower lobe. 3. Chronic findings including bilateral renal cysts, left adrenal adenoma, arteriosclerotic disease, and chronic bony findings.
[2023-10-09 15:25] VITALS: O2SAT 95
[2023-10-09 16:18] VITALS: BP 174/80; RESP 17
== END 2023-10-09 16:40 | disposition home or self-care (01) ==
LOC: ED 11:48
DX: D35.02 Benign neoplasm of left adrenal gland (principal); Q61.02 Congenital multiple renal cysts; I70.0 Atherosclerosis of aorta; K56.41 Fecal impaction; K62.89 Other specified diseases of anus and rectum; E78.5 Hyperlipidemia, unspecified; I10 Essential (primary) hypertension; Z79.899 Other long term (current) drug therapy
CPT/HCPCS: 36000; 36415; 74177; 80053; 85025; 99284

== ENCOUNTER 2023-11-29 19:15 | Observation (INO) | payer OTHER, MEDICARE ==
--- NOTE | 2023-11-29 19:58 | ERPHSYRPT ---
- History of Present Illness Time Seen by Provider: 11/29/23 19:26 Source: patient, family, EMS Exam Limitations: no limitations Patient Subjective Stated Complaint: pt here for sob that started today at home, coughing up green sputum.pt wears o2 at 2 lnc at home Triage Nursing Assessment: pt alert, resp easy, chest clear, abd soft, has bandaid to left upper arm from a skin tear Physician History: 83 years old male with history of COPD with chronic respiratory failure on 2 L oxygen at nighttime, lung cancer status post radiation currently on chemotherapy, hypertension, hypothyroidism, stroke with residual weakness presented in the ER with increasing shortness of breath since afternoon where he has to put oxygen during the daytime and is currently on 3-1/2 L with saturation around 94%. Patient reports having cough productive of clear to yellow sputum with no chest pain or palpitations. Denies any lower extremity swelling. No fever or chills reported but does admit having generalized weakness fatigue and tiredness for last couple of days. Patient is not anticoagulated. Patient did receive Solu-Medrol and DuoNeb in route to ER by EMS and is feeling better. Allergies/Adverse Reactions: No Known Drug Allergies Allergy (Verified 11/29/23 19:21) Home Medications: Acetaminophen 500 mg [Tylenol Extra Strength 500 mg] 500 mg PO Q4HPRN PRN 02/11/23 [History] Atorvastatin Calcium 40 mg PO HS 02/11/23 [History] Fluorometholone Acetate [Flarex] 5 ml OP DAILY 02/11/23 [History] Ketorolac Tromethamine 0.5% [Acular OPTH SINA] 5 ml OP BID 02/11/23 [History] Levothyroxine Sodium 112 Mcg [Synthroid 112 Mcg] 112 mcg PO DAILY 02/11/23 [History] Metoprolol Tartrate 50 mg [Lopressor 50 MG] 50 mg PO BID 02/11/23 [History] Omeprazole 40 mg PO DAILY 02/11/23 [History] Timolol Maleate/Dorzolam HCl [Cosopt Ophthalmic 10 ml] 1 drop OP BID 02/11/23 [History] Diltiazem HCl [Cardizem LA] 300 mg PO DAILY 02/12/23 [History] Lisinopril 20 mg [Zestril 20 MG] 40 mg PO DAILY 02/12/23 [History] Ammonium Lactate [Ammonium Lactate 12%] See Rx Instructions .ROUTE .COMPLEX 11/29/23 [History] Baclofen 10 mg [Lioresal 10 mg] 1 tab PO BID 11/29/23 [History] Ferrous Sulfate 1 tab PO BID 11/29/23 [History] Latanoprost [Xalatan] 1 drop HS 11/29/23 [History] Multivitamin 1 tab PO DAILY 11/29/23 [History] Hx Tetanus, Diphtheria Vaccination/Date Given: Yes Hx Influenza Vaccination/Date Given: Yes Hx Pneumococcal Vaccination/Date Given: Yes Immunizations Up to Date: Yes Travel Risk - International Travel Have you traveled outside of the country in past 3 weeks: No - Coronavirus Screening Are you exhibiting any of the following symptoms?: Yes Symptoms: Fever, Cough: New Onset, Shortness of Breath Close contact with a COVID-19 positive Pt in past 14-21 Days: No - Vaccine Status Have you recieved a Covid-19 vaccination: Yes 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: [employer] - Vaccination Dates Date of 2cond Vaccination (if applicable): 5529-2988 - Review of Systems Constitutional: Fatigue, Weakness Eyes: No Symptoms Ears, Nose, & Throat: No Symptoms Respiratory: Cough, Dyspnea Cardiac: No Symptoms Abdominal/Gastrointestinal: No Symptoms Genitourinary Symptoms: No Symptoms Musculoskeletal: Arthralgias Skin: No Symptoms Neurological: Paralysis Psychological: No Symptoms Endocrine: No Symptoms Immunological/Allergic: No Symptoms - Past Medical History Pertinent Past Medical History: Yes Neurological History: Migraines, TIA ENT History: Cataracts, Other Cardiac History: Arrhythmia, High Cholesterol, Hypertension Respiratory History: COPD Endocrine Medical History: Adrenal Insufficiency, Hypothyroidism Musculoskeletal History: Osteoarthritis GI Medical History: GERD History: No Pertinent History Psycho-Social History: No Pertinent History Male Reproductive Disorders: No Pertinent History Other Medical History: A-FIB - Past Surgical History Past Surgical History: Yes Neuro Surgical History: No Pertinent History Cardiac: Cardiac Catheterization, Internal Defibrillator, Pacemaker Respiratory: No Pertinent History Gastrointestinal: Appendectomy Genitourinary: No Pertinent History Musculoskeletal: Orthopedic Surgery Male Surgical History: No Pertinent History Other Surgical History: left knee-bone chip removed, bilateral cataracts removed, R hand trigger finger release., left elbow - Social History Smoking Status: Former smoker How long have you smoked: 40 YEARS Exposure to second hand smoke: No Drug Use: none Patient Lives Alone: Yes - Nursing Vital Signs Nursing Vital Signs: Initial Vital Signs Temperature 99.0 F 11/29/23 19:22 Pulse Rate 78 11/29/23 19:22 Respiratory Rate 22 11/29/23 19:22 Blood Pressure 166/71 11/29/23 19:22 O2 Sat by Pulse Oximetry 95 11/29/23 19:22 Pain Scale Pain Intensity 0 - Physical Exam General Appearance: no apparent distress, alert Eye Exam: PERRL/EOMI Ears, Nose, Throat Exam: hearing grossly normal, normal ENT inspection Neck Exam: normal inspection, non-tender, supple, full range of motion Respiratory Exam: diminished breath sounds, rhonchi, wheezing Cardiovascular/Chest Exam: normal heart sounds, regular rate/rhythm Abdominal/Gastrointestinal Exam: soft Extremity Exam: non-tender Neurologic Exam: alert, oriented x 3, cooperative, No nml station & gait Skin Exam: normal color SpO2 Interpretation: O2 applied SpO2: 95 O2 Delivery: Nasal Cannula - Course EKG Interpreted by Me: RATE (70), Sinus Rhythm, NORMAL AXIS, NORMAL INTERVALS, Non-specific ST Changes, Other Ordered Tests: Medication Summary Generic Name Dose Route Start Last Admin Trade Name Freq PRN Reason Stop Dose Admin Acetaminophen 500 mg 11/30/23 05:16 Acetaminophen 500 Mg Tablet PO 12/30/23 05:15 Q4HPRN PRN PAIN AND/OR FEVER Albuterol/Ipratropium 3 ml 11/30/23 01:08 Ipratropium/Albuterol Sulfate 3 Ml Ampul.Neb 12/30/23 01:07 Q4HPRN PRN SHORTNESS OF BREATH/WHEEZING Baclofen 10 mg 11/30/23 10:00 12/01/23 09:46 Baclofen 10 Mg Tablet PO 12/30/23 09:59 10 mg BID SONIA Administration Diltiazem HCl 300 mg 11/30/23 10:00 12/01/23 09:47 Diltiazem Hcl Cd 300 Mg Cap PO 12/30/23 09:59 300 mg DAILY SONIA Administration Docusate Sodium 100 mg 12/01/23 10:00 12/01/23 09:46 Docusate Sodium 100 Mg Capsule PO 12/31/23 09:59 100 mg BID SONIA Administration Ferrous Sulfate 325 mg 11/30/23 10:00 12/01/23 09:46 Ferrous Sulfate 325 Mg Tablet PO 12/30/23 09:59 325 mg BID SONIA Administration Azithromycin 500 mg in 250 mls @ 250 mls/hr 11/30/23 22:00 11/30/23 21:36 Zithromax 500 Mg/ 250 Ml Nacl Premix IV 12/30/23 21:59 250 mls/hr QPM SONIA Administration Piperacillin Sod/Tazobactam 100 mls @ 200 mls/hr 11/30/23 06:00 12/01/23 17:06 Sod 3.375 gm/ Sodium Chloride IV 12/03/23 05:59 200 mls/hr Q6HT SONIA Administration Sodium Chloride 1,000 mls @ 100 mls/hr 12/01/23 07:30 12/01/23 18:04 Sodium Chloride 0.9% 1000 Ml IV 12/31/23 07:29 100 mls/hr .Q10H SONIA Administration Levothyroxine Sodium 112 mcg 11/30/23 10:00 12/01/23 09:47 Levothyroxine Sodium 112 Mcg Tablet PO 12/30/23 09:59 112 mcg DAILY SONIA Administration Lisinopril 40 mg 11/30/23 10:00 12/01/23 09:46 Lisinopril 20 Mg Tablet PO 12/30/23 09:59 40 mg DAILY SONIA Administration Metoprolol Tartrate 50 mg 11/30/23 10:00 12/01/23 09:46 Metoprolol Tartrate 50 Mg Tablet PO 12/30/23 09:59 50 mg BID SONIA Administration Multivitamins Therapeutic 1 tab 11/30/23 10:00 12/01/23 09:46 Multivitamins,Therapeutic 1 Tab Tab PO 12/30/23 09:59 1 tab DAILY SONIA Administration Pantoprazole Sodium 40 mg 11/30/23 10:00 12/01/23 09:46 Protonix (Pantoprazole) 40 Mg Tablet PO 12/30/23 09:59 40 mg DAILY SONIA Administration Ketoralac Eye Drops 1 each 11/30/23 10:00 12/01/23 09:45 OP 12/30/23 09:59 1 each BID SONIA Administration Dorzolamide/Timolol 1 each 11/30/23 10:00 12/01/23 09:45 Eye Drops OP 12/30/23 09:59 1 each BID SONIA Administration Polyethylene Glycol 17 gm 11/30/23 17:51 12/01/23 09:46 Polyethylene Glycol 3350 17 Gm Packet PO 12/30/23 17:50 17 gm QDP PRN Administration CONSTIPATION Prednisone 20 mg 12/01/23 10:00 12/01/23 09:46 Prednisone 20 Mg Tablet PO 12/31/23 09:59 20 mg DAILY SONIA Administration Simvastatin 10 mg 11/30/23 22:00 11/30/23 21:38 Simvastatin 10 Mg Tablet PO 12/30/23 21:59 10 mg HS SONIA Administration Discontinued Medications Generic Name Dose Route Start Last Admin Trade Name Freq PRN Reason Stop Dose Admin Albuterol/Ipratropium 3 ml 11/30/23 07:00 11/30/23 05:45 Ipratropium/Albuterol Sulfate 3 Ml Ampul.Neb IH 12/30/23 06:59 3 ml Q4HRT SONIA Administration Methylprednisolone Sodium 0 mg 11/30/23 06:00 12/01/23 06:04 Succinate 40 mg/ Sterile Water IV 12/30/23 05:59 40 mg 1 ml Q8HT SONIA Administration Enoxaparin Sodium 40 mg 11/30/23 10:00 11/30/23 13:32 Enoxaparin Sodium 40 Mg/0.4 Ml Syringe SQ 12/30/23 09:59 Not Given DAILY SONIA Azithromycin 500 mg in 250 mls @ 250 mls/hr 11/29/23 20:40 11/29/23 22:45 Zithromax 500 Mg/ 250 Ml Nacl Premix IV 11/29/23 21:39 Infused STAT STA Infusion Ceftriaxone Sodium/Dextrose 2 g in 50 mls @ 100 mls/hr 11/29/23 20:40 11/29/23 21:35 Rocephin 2 Gm-D5w 50ml Bag IV 11/29/23 21:09 Infused STAT STA Infusion Azithromycin Confirm 11/29/23 20:55 Zithromax 500 Mg/ 250 Ml Nacl Premix Administered 11/29/23 20:56 Dose 500 mg in 250 mls @ ud IV .STK-MED ONE Ceftriaxone Sodium/Dextrose Confirm 11/29/23 20:55 Rocephin 2 Gm-D5w 50ml Bag Administered 11/29/23 20:56 Dose 2 g in 50 mls @ ud IV .STK-MED ONE Sodium Chloride Confirm 11/30/23 06:14 Sodium Chloride 100ml Mini-Bag Plus Administered 11/30/23 06:15 Dose 100 mls @ ud IV .STK-MED ONE Methylprednisolone Sodium Succinate Confirm 11/30/23 06:13 Methylprednisolone Sod Suc 40m 40 Mg/Ml Vial Administered 11/30/23 06:14 Dose 40 mg .ROUTE .STK-MED ONE Piperacillin Sod/Tazobactam Sod Confirm 11/30/23 06:13 Piperacillin/Tazobactam Sodium 3.375 Gm Vial Administered 11/30/23 06:14 Dose 3.375 gm IV .STK-MED ONE Sterile Water Confirm 11/30/23 06:13 Water For Injection,Sterile 10 Ml Vial Administered 11/30/23 06:14 Dose 10 ml IJ .STK-MED ONE Lab/Rad Data: Laboratory Result Diagrams 11/29/23 19:55 11/29/23 19:55 Laboratory Results 11/29/23 11/29/23 11/29/23 Range/Units 23:10 20:00 19:55 WBC (4.0-10.5) x10^3/uL RBC (4.1-5.6) x10^6/uL Hgb (12.5-18.0) g/dL Hct (42-50) % MCV (78-100) fL MCH (26-32) pg MCHC (32-36) g/dL RDW (11.5-14.0) % Plt Count (150-450) x10^3/uL MPV (7.5-11.0) fL Gran % (36.0-66.0) % Immature Gran % (Auto) (0.00-0.4) % Nucleat RBC Rel Count (0.00-0.1) % Lymphocytes % (24.0-44.0) % Monocytes % (0.0-12.0) % Eosinophils % (0.00-5.0) % Basophils % (0.0-0.4) % Segmented Neutrophils (36.-66.) % Band Neutrophils (0.0-2.0) % Lymphocytes (Manual) (24-44) % Monocytes (Manual) (0.0-12.0) % Metamyelocytes % Toxic Granulation Dohle Bodies Platelet Estimate (NORMAL) RBC Morphology Sodium (137-145) mmol/L Potassium (3.5-5.1) mmol/L Chloride (98-107) mmol/L Carbon Dioxide (22-30) mmol/L Anion Gap (5-15) MEQ/L BUN (9-20) mg/dL Creatinine (0.66-1.25) mg/dL Estimated GFR ML/MIN Glucose (74-106) mg/dL Lactic Acid (0.4-2.0) Calcium (8.4-10.2) mg/dL Magnesium (1.6-2.3) mg/dL Total Bilirubin (0.2-1.3) mg/dL AST (17-59) U/L ALT (0-50) U/L Alkaline Phosphatase (38-126) U/L Troponin I 0.085 H* 0.062 H* (0.000-0.034) ng/mL NT-Pro-B Natriuret Pep 3190 (<300) pg/mL Serum Total Protein (6.3-8.2) g/dL Albumin (3.5-5.0) g/dL Influenza Type A Ag NEGATIVE (NEGATIVE) Influenza Type B Ag NEGATIVE (NEGATIVE) RSV (PCR) NEGATIVE (NEGATIVE) SARS-CoV-2 (PCR) NEGATIVE (NEGATIVE) 11/29/23 11/29/23 11/29/23 Range/Units 19:55 19:55 19:55 WBC 9.2 (4.0-10.5) x10^3/uL RBC 3.41 L (4.1-5.6) x10^6/uL Hgb 10.3 L (12.5-18.0) g/dL Hct 32.7 L (42-50) % MCV 95.9 (78-100) fL MCH 30.2 (26-32) pg MCHC 31.5 L (32-36) g/dL RDW 17.2 H (11.5-14.0) % Plt Count 203 (150-450) x10^3/uL MPV 11.2 H (7.5-11.0) fL Gran % 89.0 H (36.0-66.0) % Immature Gran % (Auto) 3.3 H (0.00-0.4) % Nucleat RBC Rel Count 0.0 (0.00-0.1) % Lymphocytes % 1.7 L (24.0-44.0) % Monocytes % 5.0 (0.0-12.0) % Eosinophils % 0.2 (0.00-5.0) % Basophils % 0.8 (0.0-0.4) % Segmented Neutrophils 76 H (36.-66.) % Band Neutrophils 17 H (0.0-2.0) % Lymphocytes (Manual) 1 L (24-44) % Monocytes (Manual) 5 (0.0-12.0) % Metamyelocytes 1 % Toxic Granulation 1+ Dohle Bodies 1+ Platelet Estimate NORMAL (NORMAL) RBC Morphology NORMAL Sodium 135 L (137-145) mmol/L Potassium 4.4 (3.5-5.1) mmol/L Chloride 101 (98-107) mmol/L Carbon Dioxide 25 (22-30) mmol/L Anion Gap 13.6 (5-15) MEQ/L BUN 27 H (9-20) mg/dL Creatinine 1.15 (0.66-1.25) mg/dL Estimated GFR 62.8 ML/MIN Glucose 133 H (74-106) mg/dL Lactic Acid 1.3 (0.4-2.0) Calcium 9.1 (8.4-10.2) mg/dL Magnesium 1.8 (1.6-2.3) mg/dL Total Bilirubin 0.60 (0.2-1.3) mg/dL AST 20 (17-59) U/L ALT 14 (0-50) U/L Alkaline Phosphatase 119 (38-126) U/L Troponin I (0.000-0.034) ng/mL NT-Pro-B Natriuret Pep (<300) pg/mL Serum Total Protein 7.4 (6.3-8.2) g/dL Albumin 3.6 (3.5-5.0) g/dL Influenza Type A Ag (NEGATIVE) Influenza Type B Ag (NEGATIVE) RSV (PCR) (NEGATIVE) SARS-CoV-2 (PCR) (NEGATIVE) - Progress Progress: improved, re-examined Air Movement: good Progress Note: 11/29/23 21:49 83-year-old is evaluated for generalized weakness with increasing shortness of breath needing 3-1/2 L oxygen. Patient is feeling much better after breathing treatment and Solu-Medrol en route to the ER. Not in any obvious distress on oxygen. Chest x-ray showed chronic changes with right-sided infiltrative process. Given a dose of antibiotics. Initial troponins are mildly elevated 8. Patient does not need any chest pain. This could be respiratory driven. EKG is normal sinus with no acute ischemic changes. Patient is DNR. Normal white count, fairly unremarkable chemistries. Discussed with Dr. Meyers and patient is being admitted. He recommended obtaining CT chest which is ordered and he will follow-up on the results. Blood Culture(s) Obtained: Yes Antibiotics given: Yes Discussed with : Rosemary Will see patient in: hospital (observation) Counseled pt/family regarding: lab results, diagnosis, rad results Medical Desision Making - Independent Historian Additional History obtained from: Relative/friend - Discussion of managment Care discussed with:: hospitalist Reviewed:: Test results Agreed on:: Treatment plan Will see patient: in hospital - Diagnostic Testing Diagnostic test were ordered, analyzed, and reviewed by me: Yes Radiological Interpretation: Interpreted by me, Reviewed by me - Risk of complications The pt has a high risk of morbidity or mortality based on: Decision regarding hospitilization or escalation of hosp level of care - Departure Departure Disposition: Observation Clinical Impression: Pneumonia, Generalized weakness Condition: Stable Critical Care Time: No
[2023-11-29 20:17] LABS: BASOPHIL % 0.8 % (0.0-0.4); Eosinophil % 0.2 % (0.00-5.0); Hematocrit 32.7 % (42-50); Hemoglobin 10.3 g/dL (12.5-18.0); IMMATURE GRAN % 3.3 % (0.00-0.4); Lymphocytes % 1.7 % (24.0-44.0); Mean Cell Volume 95.9 fL (78-100); Mean Corpuscular Hemoglobin 30.2 pg (26-32); Mean Corpuscular Hgb Concent. 31.5 g/dL (32-36); Mean Platelet Volume 11.2 fL (7.5-11.0); Platelet Count 203 x10^3/uL (150-450); Red Blood Count 3.41 x10^6/uL (4.1-5.6); Red Cell Distribution Width 17.2 % (11.5-14.0); White Blood Count 9.2 x10^3/uL (4.0-10.5)
[2023-11-29 20:21] LABS: ALBUMIN 3.6 g/dL (3.5-5.0); ANION GAP 13.6 MEQ/L (5-15); BILIRUBIN,TOTAL 0.6 mg/dL (0.2-1.3); Calcium 9.1 mg/dL (8.4-10.2); Creatinine 1 1.15 mg/dL (0.66-1.25); EST GLOMERULAR FILTRATION RATE 62.8 ML/MIN; MAGNESIUM 1.8 mg/dL (1.6-2.3); Potassium 4.4 mmol/L (3.5-5.1); Total Protein 7.4 g/dL (6.3-8.2)
[2023-11-29] MEDS ORDERED: ROCEPHIN 2 Gm-D5w 50ML BAG** 2 G/50 ML IVPB IV STA (20:40)
[2023-11-29] MEDS ORDERED: Zithromax 500 MG/ 250 ML NaCl Premix 500 MG/250 ML IVPB IV STA (20:40)
[2023-11-29 20:45] LABS: INFLUENZA A NEGATIVE (NEGATIVE); INFLUENZA B NEGATIVE (NEGATIVE); RESPIRATORY SYNCTIAL VIRUS NEGATIVE (NEGATIVE); SARS-CoV-2 Xpert Express NEGATIVE (NEGATIVE)
[2023-11-29 20:48] LABS: BAND 17 % (0.0-2.0); Dohle Bodies 1+; Lymphocytes 1 % (24-44); Metamyelocyte 1 %; Monocyte 5 % (0.0-12.0); Neutrophils 76 % (36.-66.); Total Cells Counted 100; Toxic Granulation 1+
[2023-11-29 20:50] LABS: Platelet Estimate NORMAL (NORMAL)
[2023-11-29 20:54] LABS: TROPONIN 0.062 ng/mL (0.000-0.034)
[2023-11-29] MEDS ORDERED: Zithromax 500 MG/ 250 ML NaCl Premix 500 MG/250 ML IVPB IV ONE (20:55)
[2023-11-29] MEDS ORDERED: ROCEPHIN 2 Gm-D5w 50ML BAG** 2 G/50 ML IVPB IV ONE (20:55)
--- NOTE | 2023-11-29 23:28 | XRAY ---
CLINICAL HISTORY:sob COMPARISON:CR dated: 02/14/2023 . TECHNIQUE:Axial non-contrast CT of chest was done with sagittal and coronal reconstructions. FINDINGS: Multifocal patchy areas of consolidation noted in basal segments of left lower lobe. There is relative reduction in volume of left lower lobe with mild hyperinflation of left upper lobe and mild mediastinal shift toward left side. Few small patchy areas of consolidation also noted in posterobasal segment of right lower lobe. Clustered small nodules in tree in bud pattern noted in posterior segment of right upper lobe, superior and basal segments of right lower lobe, representing acute infectious bronchiolitis. Mild subpleural atelectatic changes noted in posterior aspect of both lower lobes. No significant pleural effusion noted. Mild hyperexpansion of right lung also noted. Few subcentimetric non-specific mediastinal nodes noted. Small right calcified hilar lymph nodes. Mild cardiomegaly noted with pacemaker leads in situ. No evidence of pericardial effusion. The aorta shows atherosclerotic changes with calcified plaques. Mild depression of the lower sternum noted. The thoracic spine shows degenerative changes with large bridging osteophytes at lower thoracic levels. Hepatosplenic calcified foci/granulomata. Scanned upper abdomen shows bilateral renal cortical cysts. Heavy vascular calcification of the abdominal arteries needed IMPRESSION: 1. Multifocal patchy areas of consolidation in basal segments of left lower lobe with few small patchy areas of consolidation also noted in posterobasal segment of right lower lobe. Primary consolidation is pneumonia. Recommended Clinical/radiographic follow up 2. Clustered small nodules in tree in bud pattern noted in posterior segment of right upper lobe, superior and basal segments of right lower lobe, representing acute infectious bronchiolitis. 3. These are few interval findings when compared to previous chest radiograph dated 02/14/2023 Electronically Signed by: Wilbert Reyes MD. (11/29/2023 23:23:27 EST)
[2023-11-30] MEDS ORDERED: DUONEB 0.5-3 MG/3 ml Neb IH PRN (01:08)
[2023-11-30] MEDS ORDERED: TYLENOL EXTRA STRENGTH 500 MG PO PRN (05:16)
--- NOTE | 2023-11-30 05:43 | PCM.HP ---
History of Present Illness - Chief Complaint Chief Complaint: Perineal Pain Date: 11/30/23 History of Present Illness: Mr. Alonso is an 83 year-old male with COPD, chronic hypoxemic respiratory failure, lung cancer s/p XRT + Chemotherapy, hypothyroidism, HTN, chronic anemia, and CVA with residual weakness who presents with shortness of breath and cough. He admits to one day of symptoms, and upon arrival to [place], laboratory data revealed anemia and elevated cardiac enzymes, while imaging revealed diffuse airspace disease. On my examination, he is resting comfortably denying any current fevers, chills, nausea, vomiting, diarrhea, syncope, p resyncope, visual changes, orthopnea, PND, odynophagia, dysphagia, chest pain, shortness of breath, belly pain, dysuria, hematuria, melena, hematochezia, or neurological changes. All other systems were reviewed and were negative. - Review of Systems Constitutional: Other ( PER HPI) Medications & Allergies Home Medications: Home Medication List Acetaminophen 500 mg [Tylenol Extra Strength 500 mg] 500 mg PO Q4HPRN PRN 02/11/23 [History Confirmed 11/29/23] Atorvastatin Calcium 40 mg PO HS 02/11/23 [History Confirmed 11/29/23] Fluorometholone Acetate [Flarex] 5 ml OP DAILY 02/11/23 [History Confirmed 11/29/23] Ketorolac Tromethamine 0.5% [Acular OPTH SINA] 5 ml OP BID 02/11/23 [History Confirmed 11/29/23] Levothyroxine Sodium 112 Mcg [Synthroid 112 Mcg] 112 mcg PO DAILY 02/11/23 [History Confirmed 11/29/23] Metoprolol Tartrate 50 mg [Lopressor 50 MG] 50 mg PO BID 02/11/23 [History Confirmed 11/29/23] Omeprazole 40 mg PO DAILY 02/11/23 [History Confirmed 11/29/23] Timolol Maleate/Dorzolam HCl [Cosopt Ophthalmic 10 ml] 1 drop OP BID 02/11/23 [History Confirmed 11/29/23] Diltiazem HCl [Cardizem LA] 300 mg PO DAILY 02/12/23 [History Confirmed 11/29/23] Lisinopril 20 mg [Zestril 20 MG] 40 mg PO DAILY 02/12/23 [History Confirmed 11/29/23] Ammonium Lactate [Ammonium Lactate 12%] See Rx Instructions .ROUTE .COMPLEX 11/29/23 [History Confirmed 11/29/23] Baclofen 10 mg [Lioresal 10 mg] 1 tab PO BID 11/29/23 [History Confirmed 11/29/23] Ferrous Sulfate 1 tab PO BID 11/29/23 [History Confirmed 11/29/23] Latanoprost [Xalatan] 1 drop HS 11/29/23 [History Confirmed 11/29/23] Multivitamin 1 tab PO DAILY 11/29/23 [History Confirmed 11/29/23] Allergies/Adverse Reactions: Allergies Allergy/AdvReac Type Severity Reaction Status Date / Time No Known Drug Allergies Allergy Verified 11/29/23 19:21 - Past Medical History Past Medical History: Yes Neurological History: Migraines, TIA ENT History: Cataracts, Other Cardiac History: Arrhythmia, High Cholesterol, Hypertension Respiratory History: COPD, Lung Cancer Endocrine Medical History: Adrenal Insufficiency, Hypothyroidism Musculoskelatal History: Osteoarthritis GI Medical History: GERD History: No Pertinent History Pyscho-Social History: No Pertinent History Male Reproductive Disorders: No Pertinent History Comment: A-FIB - Past Surgical History Past Surgical History: Yes Neuro Surgical History: No Pertinent History Cardiac History: Cardiac Catheterization, Internal Defibrillator, Pacemaker Respiratory Surgery: No Pertinent History GI Surgical History: Appendectomy Genitourinary Surgical Hx: No Pertinent History Musculskeletal Surgical Hx: Orthopedic Surgery Male Surgical History: No Pertinent History Other Surgical History: left knee-bone chip removed, bilateral cataracts removed, R hand trigger finger release., left elbow - Social History Smoking Status: Former smoker How long have you smoked: 40 YEARS Exposure to second hand smoke: No Alcohol: None Drug Use: none - Physical Exam Vital Signs: Vital Signs - 24 hr Temp Pulse Resp BP BP Pulse Ox 11/30/23 04:00 98.4 F 67 16 120/60 95 11/30/23 00:12 98.0 F 65 16 123/59 93 L 11/30/23 00:05 71 18 91 L 11/30/23 00:00 98.0 F 65 16 123/59 93 L 11/29/23 23:00 68 24 119/55 93 L 11/29/23 22:50 68 26 H 93 L 11/29/23 22:44 68 25 H 96 11/29/23 22:00 64 24 119/53 11/29/23 21:52 95 11/29/23 21:30 64 24 125/55 94 L 11/29/23 21:00 64 22 132/53 94 L 11/29/23 20:30 69 24 125/56 93 L 11/29/23 20:00 69 24 132/58 91 L 11/29/23 19:30 73 27 H 151/65 91 L 11/29/23 19:22 99.0 F 78 22 166/71 95 General Appearance: no apparent distress, alert Neurologic Exam: alert, oriented x 3, cooperative, normal mood/affect, nml cerebellar function, nml station & gait, sensation nml, No motor deficits Eye Exam: PERRL/EOMI, eyes nml inspection Ears, Nose, Throat Exam: normal ENT inspection, TMs normal, pharynx normal, moist mucous membranes Neck Exam: normal inspection, non-tender, supple, full range of motion Respiratory Exam: normal breath sounds, lungs clear, No respiratory distress Cardiovascular Exam: regular rate/rhythm, normal heart sounds, normal peripheral pulses Gastrointestinal/Abdomen Exam: soft, normal bowel sounds, No tenderness, No mass Back Exam: normal inspection, normal range of motion, No CVA tenderness, No vertebral tenderness Extremity Exam: normal inspection, normal range of motion, pelvis stable Skin Exam: normal color, warm, dry, No rash Lymphatic Exam: No adenopathy Results - Labs Lab/Micro Results: Lab Results-Last 24 Hours 11/29/23 11/29/23 11/29/23 Range/Units 19:55 19:55 19:55 WBC 9.2 (4.0-10.5) x10^3/uL RBC 3.41 L (4.1-5.6) x10^6/uL Hgb 10.3 L (12.5-18.0) g/dL Hct 32.7 L (42-50) % MCV 95.9 (78-100) fL MCH 30.2 (26-32) pg MCHC 31.5 L (32-36) g/dL RDW 17.2 H (11.5-14.0) % Plt Count 203 (150-450) x10^3/uL MPV 11.2 H (7.5-11.0) fL Gran % 89.0 H (36.0-66.0) % Immature Gran % (Auto) 3.3 H (0.00-0.4) % Nucleat RBC Rel Count 0.0 (0.00-0.1) % Lymphocytes % 1.7 L (24.0-44.0) % Monocytes % 5.0 (0.0-12.0) % Eosinophils % 0.2 (0.00-5.0) % Basophils % 0.8 (0.0-0.4) % Segmented Neutrophils 76 H (36.-66.) % Band Neutrophils 17 H (0.0-2.0) % Lymphocytes (Manual) 1 L (24-44) % Monocytes (Manual) 5 (0.0-12.0) % Metamyelocytes 1 % Toxic Granulation 1+ Dohle Bodies 1+ Platelet Estimate NORMAL (NORMAL) RBC Morphology NORMAL Sodium 135 L (137-145) mmol/L Potassium 4.4 (3.5-5.1) mmol/L Chloride 101 (98-107) mmol/L Carbon Dioxide 25 (22-30) mmol/L Anion Gap 13.6 (5-15) MEQ/L BUN 27 H (9-20) mg/dL Creatinine 1.15 (0.66-1.25) mg/dL Estimated GFR 62.8 ML/MIN Glucose 133 H (74-106) mg/dL Lactic Acid 1.3 (0.4-2.0) Calcium 9.1 (8.4-10.2) mg/dL Magnesium 1.8 (1.6-2.3) mg/dL Total Bilirubin 0.60 (0.2-1.3) mg/dL AST 20 (17-59) U/L ALT 14 (0-50) U/L Alkaline Phosphatase 119 (38-126) U/L Troponin I (0.000-0.034) ng/mL NT-Pro-B Natriuret Pep (<300) pg/mL Serum Total Protein 7.4 (6.3-8.2) g/dL Albumin 3.6 (3.5-5.0) g/dL Prealbumin (17.6-36.0) mg/dL Influenza Type A Ag (NEGATIVE) Influenza Type B Ag (NEGATIVE) RSV (PCR) (NEGATIVE) SARS-CoV-2 (PCR) (NEGATIVE) 11/29/23 11/29/23 11/29/23 Range/Units 19:55 20:00 23:10 WBC (4.0-10.5) x10^3/uL RBC (4.1-5.6) x10^6/uL Hgb (12.5-18.0) g/dL Hct (42-50) % MCV (78-100) fL MCH (26-32) pg MCHC (32-36) g/dL RDW (11.5-14.0) % Plt Count (150-450) x10^3/uL MPV (7.5-11.0) fL Gran % (36.0-66.0) % Immature Gran % (Auto) (0.00-0.4) % Nucleat RBC Rel Count (0.00-0.1) % Lymphocytes % (24.0-44.0) % Monocytes % (0.0-12.0) % Eosinophils % (0.00-5.0) % Basophils % (0.0-0.4) % Segmented Neutrophils (36.-66.) % Band Neutrophils (0.0-2.0) % Lymphocytes (Manual) (24-44) % Monocytes (Manual) (0.0-12.0) % Metamyelocytes % Toxic Granulation Dohle Bodies Platelet Estimate (NORMAL) RBC Morphology Sodium (137-145) mmol/L Potassium (3.5-5.1) mmol/L Chloride (98-107) mmol/L Carbon Dioxide (22-30) mmol/L Anion Gap (5-15) MEQ/L BUN (9-20) mg/dL Creatinine (0.66-1.25) mg/dL Estimated GFR ML/MIN Glucose (74-106) mg/dL Lactic Acid (0.4-2.0) Calcium (8.4-10.2) mg/dL Magnesium (1.6-2.3) mg/dL Total Bilirubin (0.2-1.3) mg/dL AST (17-59) U/L ALT (0-50) U/L Alkaline Phosphatase (38-126) U/L Troponin I 0.062 H* 0.085 H* (0.000-0.034) ng/mL NT-Pro-B Natriuret Pep 3190 (<300) pg/mL Serum Total Protein (6.3-8.2) g/dL Albumin (3.5-5.0) g/dL Prealbumin (17.6-36.0) mg/dL Influenza Type A Ag NEGATIVE (NEGATIVE) Influenza Type B Ag NEGATIVE (NEGATIVE) RSV (PCR) NEGATIVE (NEGATIVE) SARS-CoV-2 (PCR) NEGATIVE (NEGATIVE) 11/30/23 11/30/23 Range/Units 03:30 03:30 WBC (4.0-10.5) x10^3/uL RBC (4.1-5.6) x10^6/uL Hgb (12.5-18.0) g/dL Hct (42-50) % MCV (78-100) fL MCH (26-32) pg MCHC (32-36) g/dL RDW (11.5-14.0) % Plt Count (150-450) x10^3/uL MPV (7.5-11.0) fL Gran % (36.0-66.0) % Immature Gran % (Auto) (0.00-0.4) % Nucleat RBC Rel Count (0.00-0.1) % Lymphocytes % (24.0-44.0) % Monocytes % (0.0-12.0) % Eosinophils % (0.00-5.0) % Basophils % (0.0-0.4) % Segmented Neutrophils (36.-66.) % Band Neutrophils (0.0-2.0) % Lymphocytes (Manual) (24-44) % Monocytes (Manual) (0.0-12.0) % Metamyelocytes % Toxic Granulation Dohle Bodies Platelet Estimate (NORMAL) RBC Morphology Sodium (137-145) mmol/L Potassium (3.5-5.1) mmol/L Chloride (98-107) mmol/L Carbon Dioxide (22-30) mmol/L Anion Gap (5-15) MEQ/L BUN (9-20) mg/dL Creatinine (0.66-1.25) mg/dL Estimated GFR ML/MIN Glucose (74-106) mg/dL Lactic Acid (0.4-2.0) Calcium (8.4-10.2) mg/dL Magnesium (1.6-2.3) mg/dL Total Bilirubin (0.2-1.3) mg/dL AST (17-59) U/L ALT (0-50) U/L Alkaline Phosphatase (38-126) U/L Troponin I 0.075 H* (0.000-0.034) ng/mL NT-Pro-B Natriuret Pep (<300) pg/mL Serum Total Protein (6.3-8.2) g/dL Albumin (3.5-5.0) g/dL Prealbumin 12.84 L (17.6-36.0) mg/dL Influenza Type A Ag (NEGATIVE) Influenza Type B Ag (NEGATIVE) RSV (PCR) (NEGATIVE) SARS-CoV-2 (PCR) (NEGATIVE) - Radiology Impressions Radiology Exams & Impressions: Radiology Procedures Category Date Time Status CHEST 1 VIEW (PORTABLE) Stat Exams 11/29/23 19:53 Taken CHEST WITHOUT CONTRAST [CT] Stat Exams 11/29/23 22:38 Completed - Other Procedures and Tests Respiratory Therapy 11/30/23 01:07 Oxygen Nasal Cannula 2 lpm Respiratory Therapy Assessment DAILY Assessment/Plan (1) Pneumonia Current Visit: Yes Status: Acute Assessment & Plan: ANTIBIOTICS AND STEROIDS Azithromycin Zosyn Solumedrol ASSESSMENT 1. Pneumonia 2. Acute COPD Exacerbation 3. Non-ST Elevation Myocardial Infarction, Type I vs. II 4. Chronic Hypoxemic Respiratory Failure 5. Lung Cancer s/p Chemo + XRT 6. Hypertension 7. Hypothyroidism 8. Chronic Anemia 9. CVA c/b Residual Weakness PLAN 1. Currently on home 2L oxygen 2. Broad Abx; Viral panel negative 3. Duonebs + Solumedrol 4. Monitor repeat troponin; consider AC + echo if cardiac enzymes rise 5. Continue antihypertensives 6. Continue synthroid Lovenox/PPI The entirety of this encounter was done via telemedicine Russ Meyers MD Pulmonary and Critical Care Medicine Code(s): J18.9 - PNEUMONIA, UNSPECIFIED ORGANISM Telemedicine Encounter - Telemedicine Encounter Telemedicine Encounter: The entirety of this encounter was performed via Telemedicine"
[2023-11-30] MEDS ORDERED: solu-MEDROL ONE (06:13)
[2023-11-30] MEDS ORDERED: Sterile H2O 10 ml IJ ONE (06:13)
[2023-11-30] MEDS ORDERED: PIPERACILLIN/TAZOBACTAM IV ONE (06:13)
[2023-11-30] MEDS ORDERED: Sodium Chloride 100ML MINI-BAG PLUS 100 ML IV ONE (06:14)
--- NOTE | 2023-11-30 06:24 | PCM.NOTE ---
Date and Time: 11/30/23 06 Subjective Assessment: Mr. Alonso is an 83 year-old male with COPD, chronic hypoxemic respiratory failure, lung cancer s/p XRT + Chemotherapy, hypothyroidism, HTN, chronic anemia, and CVA with residual weakness who presents with shortness of breath and cough. He admits to one day of symptoms, and upon arrival to [facility], laboratory data revealed anemia and elevated cardiac enzymes, while imaging revealed Multifocal patchy areas of consolidation in basal segments of left lower lobe with few small patchy areas of consolidation also noted in posterobasal segment of right lower lobe. Primary consolidation is pneumonia. Patient admitted for pneumonia. Currently being treated with zosyn/azithromycin. 11/30/23: Met with patient and caregiver at bedside. Endorses improvement of dyspnea and cough. He is 2L at QHS baseline, requiring 2L continuous. Lungs with fine crackles at bases on auscultation. Patient reports that due to recent brain bleed in January he is unable to be anticoagulated. He is currently receiving VP16 with Dr. Thomas (oncology) for his lung cancer, S/P radiation. Denies fever,abdominal pain, [id number], dizziness, N/V/D. <ADALID VÁSQUEZ - Last Filed: 11/30/23 12:50> Date and Time: 11/30/232300 <LUAN MO - Last Filed: 11/30/23 23:02> - Review of Systems Constitutional: Weakness Eyes: No Symptoms Ears, Nose, & Throat: No Symptoms Respiratory: Cough, Short Of Breath Cardiac: No Symptoms Abdominal/Gastrointestinal: No Symptoms Genitourinary Symptoms: No Symptoms Musculoskeletal: No Symptoms Skin: No Symptoms Neurological: No Symptoms Endocrine: No Symptoms Hematologic/Lymphatic: Anemia Immunological/Allergic: No Symptoms <ADALID VÁSQUEZ - Last Filed: 11/30/23 12:50> Objective Exam General Appearance: no apparent distress Neurologic Exam: alert, oriented x 3, cooperative Skin Exam: normal color Eye Exam: PERRL Ears, Nose, Throat Exam: normal ENT inspection Neck Exam: normal inspection Respiratory Exam: crackles/rales, other (2L NC) Cardiovascular Exam: regular rate/rhythm, normal heart sounds Gastrointestinal/Abdomen Exam: soft, normal bowel sounds Extremity Exam: normal inspection Male Genitalia Exam: deferred Rectal Exam: deferred <ADALID VÁSQUEZ - Last Filed: 11/30/23 12:50> Wound Assessment: Skin/Wound Assessment Wound/Incision Assessment Start: 11/30/23 01:25 Text: Status: Active Freq: Q6H Protocol: Document 11/30/23 19:59 MH (Rec: 11/30/23 20:06 MH [id number]) Wound Photo Photo Taken No <LUAN MO - Last Filed: 11/30/23 23:02> OBJECTIVE DATA Vital Signs: Vital Signs - 24 hr Temp Pulse Resp BP BP Pulse Ox 11/30/23 05:45 66 16 94 L 11/30/23 04:00 98.4 F 67 16 120/60 95 11/30/23 00:12 98.0 F 65 16 123/59 93 L 11/30/23 00:05 71 18 91 L 11/30/23 00:00 98.0 F 65 16 123/59 93 L 11/29/23 23:00 68 24 119/55 93 L 11/29/23 22:50 68 26 H 93 L 11/29/23 22:44 68 25 H 96 11/29/23 22:00 64 24 119/53 11/29/23 21:52 95 11/29/23 21:30 64 24 125/55 94 L 11/29/23 21:00 64 22 132/53 94 L 11/29/23 20:30 69 24 125/56 93 L 11/29/23 20:00 69 24 132/58 91 L 11/29/23 19:30 73 27 H 151/65 91 L 11/29/23 19:22 99.0 F 78 22 166/71 95 Pain Assessment - Last Documented Pain Intensity 0 Intake and Output: Intake & Output 11/27/23 11/28/23 11/29/23 11/30/23 11:59 11:59 11:59 11:59 Weight 74.7 kg Lab Results: Lab Results-Last 24 Hours 11/29/23 11/29/23 11/29/23 Range/Units 19:55 19:55 19:55 WBC 9.2 (4.0-10.5) x10^3/uL RBC 3.41 L (4.1-5.6) x10^6/uL Hgb 10.3 L (12.5-18.0) g/dL Hct 32.7 L (42-50) % MCV 95.9 (78-100) fL MCH 30.2 (26-32) pg MCHC 31.5 L (32-36) g/dL RDW 17.2 H (11.5-14.0) % Plt Count 203 (150-450) x10^3/uL MPV 11.2 H (7.5-11.0) fL Gran % 89.0 H (36.0-66.0) % Immature Gran % (Auto) 3.3 H (0.00-0.4) % Nucleat RBC Rel Count 0.0 (0.00-0.1) % Lymphocytes % 1.7 L (24.0-44.0) % Monocytes % 5.0 (0.0-12.0) % Eosinophils % 0.2 (0.00-5.0) % Basophils % 0.8 (0.0-0.4) % Segmented Neutrophils 76 H (36.-66.) % Band Neutrophils 17 H (0.0-2.0) % Lymphocytes (Manual) 1 L (24-44) % Monocytes (Manual) 5 (0.0-12.0) % Metamyelocytes 1 % Toxic Granulation 1+ Dohle Bodies 1+ Platelet Estimate NORMAL (NORMAL) RBC Morphology NORMAL Sodium 135 L (137-145) mmol/L Potassium 4.4 (3.5-5.1) mmol/L Chloride 101 (98-107) mmol/L Carbon Dioxide 25 (22-30) mmol/L Anion Gap 13.6 (5-15) MEQ/L BUN 27 H (9-20) mg/dL Creatinine 1.15 (0.66-1.25) mg/dL Estimated GFR 62.8 ML/MIN Glucose 133 H (74-106) mg/dL Lactic Acid 1.3 (0.4-2.0) Calcium 9.1 (8.4-10.2) mg/dL Magnesium 1.8 (1.6-2.3) mg/dL Total Bilirubin 0.60 (0.2-1.3) mg/dL AST 20 (17-59) U/L ALT 14 (0-50) U/L Alkaline Phosphatase 119 (38-126) U/L Troponin I (0.000-0.034) ng/mL NT-Pro-B Natriuret Pep (<300) pg/mL Serum Total Protein 7.4 (6.3-8.2) g/dL Albumin 3.6 (3.5-5.0) g/dL Prealbumin (17.6-36.0) mg/dL Influenza Type A Ag (NEGATIVE) Influenza Type B Ag (NEGATIVE) RSV (PCR) (NEGATIVE) SARS-CoV-2 (PCR) (NEGATIVE) 11/29/23 11/29/23 11/29/23 Range/Units 19:55 20:00 23:10 WBC (4.0-10.5) x10^3/uL RBC (4.1-5.6) x10^6/uL Hgb (12.5-18.0) g/dL Hct (42-50) % MCV (78-100) fL MCH (26-32) pg MCHC (32-36) g/dL RDW (11.5-14.0) % Plt Count (150-450) x10^3/uL MPV (7.5-11.0) fL Gran % (36.0-66.0) % Immature Gran % (Auto) (0.00-0.4) % Nucleat RBC Rel Count (0.00-0.1) % Lymphocytes % (24.0-44.0) % Monocytes % (0.0-12.0) % Eosinophils % (0.00-5.0) % Basophils % (0.0-0.4) % Segmented Neutrophils (36.-66.) % Band Neutrophils (0.0-2.0) % Lymphocytes (Manual) (24-44) % Monocytes (Manual) (0.0-12.0) % Metamyelocytes % Toxic Granulation Dohle Bodies Platelet Estimate (NORMAL) RBC Morphology Sodium (137-145) mmol/L Potassium (3.5-5.1) mmol/L Chloride (98-107) mmol/L Carbon Dioxide (22-30) mmol/L Anion Gap (5-15) MEQ/L BUN (9-20) mg/dL Creatinine (0.66-1.25) mg/dL Estimated GFR ML/MIN Glucose (74-106) mg/dL Lactic Acid (0.4-2.0) Calcium (8.4-10.2) mg/dL Magnesium (1.6-2.3) mg/dL Total Bilirubin (0.2-1.3) mg/dL AST (17-59) U/L ALT (0-50) U/L Alkaline Phosphatase (38-126) U/L Troponin I 0.062 H* 0.085 H* (0.000-0.034) ng/mL NT-Pro-B Natriuret Pep 3190 (<300) pg/mL Serum Total Protein (6.3-8.2) g/dL Albumin (3.5-5.0) g/dL Prealbumin (17.6-36.0) mg/dL Influenza Type A Ag NEGATIVE (NEGATIVE) Influenza Type B Ag NEGATIVE (NEGATIVE) RSV (PCR) NEGATIVE (NEGATIVE) SARS-CoV-2 (PCR) NEGATIVE (NEGATIVE) 11/30/23 11/30/23 Range/Units 03:30 03:30 WBC (4.0-10.5) x10^3/uL RBC (4.1-5.6) x10^6/uL Hgb (12.5-18.0) g/dL Hct (42-50) % MCV (78-100) fL MCH (26-32) pg MCHC (32-36) g/dL RDW (11.5-14.0) % Plt Count (150-450) x10^3/uL MPV (7.5-11.0) fL Gran % (36.0-66.0) % Immature Gran % (Auto) (0.00-0.4) % Nucleat RBC Rel Count (0.00-0.1) % Lymphocytes % (24.0-44.0) % Monocytes % (0.0-12.0) % Eosinophils % (0.00-5.0) % Basophils % (0.0-0.4) % Segmented Neutrophils (36.-66.) % Band Neutrophils (0.0-2.0) % Lymphocytes (Manual) (24-44) % Monocytes (Manual) (0.0-12.0) % Metamyelocytes % Toxic Granulation Dohle Bodies Platelet Estimate (NORMAL) RBC Morphology Sodium (137-145) mmol/L Potassium (3.5-5.1) mmol/L Chloride (98-107) mmol/L Carbon Dioxide (22-30) mmol/L Anion Gap (5-15) MEQ/L BUN (9-20) mg/dL Creatinine (0.66-1.25) mg/dL Estimated GFR ML/MIN Glucose (74-106) mg/dL Lactic Acid (0.4-2.0) Calcium (8.4-10.2) mg/dL Magnesium (1.6-2.3) mg/dL Total Bilirubin (0.2-1.3) mg/dL AST (17-59) U/L ALT (0-50) U/L Alkaline Phosphatase (38-126) U/L Troponin I 0.075 H* (0.000-0.034) ng/mL NT-Pro-B Natriuret Pep (<300) pg/mL Serum Total Protein (6.3-8.2) g/dL Albumin (3.5-5.0) g/dL Prealbumin 12.84 L (17.6-36.0) mg/dL Influenza Type A Ag (NEGATIVE) Influenza Type B Ag (NEGATIVE) RSV (PCR) (NEGATIVE) SARS-CoV-2 (PCR) (NEGATIVE) Radiology Exams: Radiology Procedures Category Date Time Status CHEST 1 VIEW (PORTABLE) Stat Exams 11/29/23 19:53 Taken CHEST WITHOUT CONTRAST [CT] Stat Exams 11/29/23 22:38 Completed <ADALID VÁSQUEZ - Last Filed: 11/30/23 12:50> Vital Signs: Vital Signs - 24 hr Temp Pulse Resp BP Pulse Ox 11/30/23 19:00 97.1 F 66 18 105/54 99 11/30/23 18:50 60 18 95 11/30/23 15:20 93 L 11/30/23 15:07 61 22 93 L 11/30/23 15:00 98.1 F 60 16 115/56 97 11/30/23 11:41 98.0 F 72 26 H 131/61 100 11/30/23 11:22 100 11/30/23 10:51 63 18 127/62 97 11/30/23 08:49 97 11/30/23 08:40 70 16 100 11/30/23 06:50 97.7 F 70 16 137/67 93 L 11/30/23 05:45 66 16 94 L 11/30/23 04:00 98.4 F 67 16 120/60 95 11/30/23 00:12 98.0 F 65 16 123/59 93 L 11/30/23 00:05 71 18 91 L 11/30/23 00:00 98.0 F 65 16 123/59 93 L Pain Assessment - Last Documented Pain Intensity 0 Intake and Output: Intake & Output 11/28/23 11/29/23 11/30/23 12/01/23 11:59 11:59 11:59 11:59 Intake Total 380 820 Output Total 500 900 Balance -120 -80 Weight 74.7 kg Lab Results: Lab Results-Last 24 Hours 11/29/23 11/30/23 11/30/23 Range/Units 23:10 03:30 03:30 WBC (4.0-10.5) x10^3/uL RBC (4.1-5.6) x10^6/uL Hgb (12.5-18.0) g/dL Hct (42-50) % MCV (78-100) fL MCH (26-32) pg MCHC (32-36) g/dL RDW (11.5-14.0) % Plt Count (150-450) x10^3/uL MPV (7.5-11.0) fL Segmented Neutrophils (36.-66.) % Lymphocytes (Manual) (24-44) % Hypochromia Toxic Granulation Platelet Estimate (NORMAL) RBC Morphology Anisocytosis Sodium (137-145) mmol/L Potassium (3.5-5.1) mmol/L Chloride (98-107) mmol/L Carbon Dioxide (22-30) mmol/L Anion Gap (5-15) MEQ/L BUN (9-20) mg/dL Creatinine (0.66-1.25) mg/dL Estimated GFR ML/MIN Glucose (74-106) mg/dL Calcium (8.4-10.2) mg/dL Total Bilirubin (0.2-1.3) mg/dL AST (17-59) U/L ALT (0-50) U/L Alkaline Phosphatase (38-126) U/L Troponin I 0.085 H* 0.075 H* (0.000-0.034) ng/mL Serum Total Protein (6.3-8.2) g/dL Albumin (3.5-5.0) g/dL Prealbumin 12.84 L (17.6-36.0) mg/dL Urine Color (Yellow) Urine Appearance (Clear) Urine pH (4.6-8.0) Ur Specific Roosevelt (1.005-1.030) Urine Protein (Negative) Urine Glucose (UA) (Negative) mg/dL Urine Ketones (Negative) Urine Blood (Negative) Urine Nitrite (Negative) Urine Bilirubin (Negative) Urine Urobilinogen (0.2) mg/dL Ur Leukocyte Esterase (Negative) Urine Microscopic RBC (0-5) /HPF Urine Microscopic WBC (0-5) /HPF Ur Epithelial Cells (None Seen) /HPF Urine Bacteria (None Seen) /HPF Urine Culture Reflexed (NO) 11/30/23 11/30/23 11/30/23 Range/Units 06:48 10:05 10:05 WBC 10.2 (4.0-10.5) x10^3/uL RBC 3.01 L (4.1-5.6) x10^6/uL Hgb 9.2 L (12.5-18.0) g/dL Hct 28.7 L (42-50) % MCV 95.3 (78-100) fL MCH 30.6 (26-32) pg MCHC 32.1 (32-36) g/dL RDW 17.4 H (11.5-14.0) % Plt Count 202 (150-450) x10^3/uL MPV 11.4 H (7.5-11.0) fL Segmented Neutrophils 98 H (36.-66.) % Lymphocytes (Manual) 2 L (24-44) % Hypochromia 1+ Toxic Granulation 1+ Platelet Estimate NORMAL (NORMAL) RBC Morphology ABNORMAL Anisocytosis 1+ Sodium (137-145) mmol/L Potassium (3.5-5.1) mmol/L Chloride (98-107) mmol/L Carbon Dioxide (22-30) mmol/L Anion Gap (5-15) MEQ/L BUN (9-20) mg/dL Creatinine (0.66-1.25) mg/dL Estimated GFR ML/MIN Glucose (74-106) mg/dL Calcium (8.4-10.2) mg/dL Total Bilirubin (0.2-1.3) mg/dL AST (17-59) U/L ALT (0-50) U/L Alkaline Phosphatase (38-126) U/L Troponin I 0.090 H* (0.000-0.034) ng/mL Serum Total Protein (6.3-8.2) g/dL Albumin (3.5-5.0) g/dL Prealbumin (17.6-36.0) mg/dL Urine Color Yellow (Yellow) Urine Appearance Clear (Clear) Urine pH 7.0 (4.6-8.0) Ur Specific Roosevelt 1.015 (1.005-1.030) Urine Protein Negative (Negative) Urine Glucose (UA) Negative (Negative) mg/dL Urine Ketones Negative (Negative) Urine Blood Negative (Negative) Urine Nitrite Negative (Negative) Urine Bilirubin Negative (Negative) Urine Urobilinogen 1.0 A (0.2) mg/dL Ur Leukocyte Esterase Small A (Negative) Urine Microscopic RBC 0-2 (0-5) /HPF Urine Microscopic WBC 3-5 (0-5) /HPF Ur Epithelial Cells None Seen (None Seen) /HPF Urine Bacteria None Seen (None Seen) /HPF Urine Culture Reflexed NO (NO) 11/30/23 11/30/23 Range/Units 10:05 16:40 WBC (4.0-10.5) x10^3/uL RBC (4.1-5.6) x10^6/uL Hgb (12.5-18.0) g/dL Hct (42-50) % MCV (78-100) fL MCH (26-32) pg MCHC (32-36) g/dL RDW (11.5-14.0) % Plt Count (150-450) x10^3/uL MPV (7.5-11.0) fL Segmented Neutrophils (36.-66.) % Lymphocytes (Manual) (24-44) % Hypochromia Toxic Granulation Platelet Estimate (NORMAL) RBC Morphology Anisocytosis Sodium 134 L (137-145) mmol/L Potassium 4.4 (3.5-5.1) mmol/L Chloride 101 (98-107) mmol/L Carbon Dioxide 25 (22-30) mmol/L Anion Gap 11.8 (5-15) MEQ/L BUN 30 H (9-20) mg/dL Creatinine 1.20 (0.66-1.25) mg/dL Estimated GFR 59.6 ML/MIN Glucose 218 H (74-106) mg/dL Calcium 8.6 (8.4-10.2) mg/dL Total Bilirubin 0.50 (0.2-1.3) mg/dL AST 19 (17-59) U/L ALT 15 (0-50) U/L Alkaline Phosphatase 89 (38-126) U/L Troponin I 0.081 H* (0.000-0.034) ng/mL Serum Total Protein 6.2 L (6.3-8.2) g/dL Albumin 3.1 L (3.5-5.0) g/dL Prealbumin (17.6-36.0) mg/dL Urine Color (Yellow) Urine Appearance (Clear) Urine pH (4.6-8.0) Ur Specific Roosevelt (1.005-1.030) Urine Protein (Negative) Urine Glucose (UA) (Negative) mg/dL Urine Ketones (Negative) Urine Blood (Negative) Urine Nitrite (Negative) Urine Bilirubin (Negative) Urine Urobilinogen (0.2) mg/dL Ur Leukocyte Esterase (Negative) Urine Microscopic RBC (0-5) /HPF Urine Microscopic WBC (0-5) /HPF Ur Epithelial Cells (None Seen) /HPF Urine Bacteria (None Seen) /HPF Urine Culture Reflexed (NO) Radiology Exams: Radiology Procedures Category Date Time Status CHEST 1 VIEW (PORTABLE) Stat Exams 11/29/23 19:53 Completed CHEST WITHOUT CONTRAST [CT] Stat Exams 11/29/23 22:38 Completed Multi-Disciplinary Progress Notes: Multi-Disciplinary Progress Notes 11/30/23 15:44 Case Management Note by Nicki Rosales PATIENT IS A [facility]- S/W KATHRIN- HIS OXYGEN IS BILLED THRU MEDICARE. KATHRIN FORM PLACED ON CHART IN CASE 24 HR O2 NEEDED AT DC Initialized on 11/30/23 15:44 - END OF NOTE 11/30/23 15:11 Respiratory Note by Jailene Hernandez TALKED WITH PATIENT ABOUT NEBULIZER TREATMENTS. PATIENT STATES HE DOES NOT TAKE THEM AT HOME. PATIENT ALSO STATES THAT HE THOUGHT THE DOCTOR SAID HE WOULD GET THEM 4 TIMES A DAY, AND WAS JUST MAKING SURE HE HEARD CORRECTLY. THIS RT EXPLAINED THE NEED FOR ONE AND HE UNDERSTANDS NOW. PATIENT IS CLEAR BILATERALLY T/O. PRN NEBULIZER IS NOT INDICATED AT THIS TIME. THIS RT DISCUSSED WITH PATIENT THAT AT ANY TIME HE MAY HAVE ONE. HE STATES HE DOES NOT FEEL HE NEEDS ONE RIGHT NOW. WEANED TO ROOM AIR 93%. PATIENT WEARS ROOM AIR DURING THE DAY AND 2 LITERS AT NOC. PATIENTS CALL LIGHT WITHIN REACH AND WILL REASSESS THIS EVENING. Initialized on 11/30/23 15:11 - END OF NOTE <LUAN MO - Last Filed: 11/30/23 23:02> Assessment/Plan (1) Pneumonia Current Visit: Yes Status: Acute Assessment & Plan: -Supplemental oxygen for goal spo2>92% -zosyn/azithromycin -RT eval -duonebs/solumedrol -WBC/LA wnl -respiratory viral panel negative -CT findings showing IMPRESSION: 1. Multifocal patchy areas of consolidation in basal segments of left lower lobe with few small patchy areas of consolidation also noted in posterobasal segment of right lower lobe. Primary consolidation is pneumonia. Recommended Clinical/radiographic follow up 2. Clustered small nodules in tree in bud pattern noted in posterior segment of right upper lobe, superior and basal segments of right lower lobe, representing acute infectious bronchiolitis. 3. These are few interval findings when compared to previous chest radiograph dated 02/14/2023 -blood cultures pending Code(s): J18.9 - PNEUMONIA, UNSPECIFIED ORGANISM (2) NSTEMI (non-ST elevated myocardial infarction) Current Visit: Yes Status: Acute Assessment & Plan: -Trops elevated/downtrending, repeat in a.m. - could be respiratory driven -ekg showing normal sinus with no acute ischemic changes will repeat -denies chest pain -echo Code(s): I21.4 - NON-ST ELEVATION (NSTEMI) MYOCARDIAL INFARCTION (3) Chronic hypoxic respiratory failure Current Visit: Yes Status: Acute Assessment & Plan: -2/2 to pneumonia, see above (4) Lung cancer Current Visit: Yes Status: Acute Assessment & Plan: -s/p chemo/radiation Code(s): C34.90 - MALIGNANT NEOPLASM OF UNSP PART OF UNSP BRONCHUS OR LUNG (5) HTN (hypertension) Current Visit: Yes Status: Acute Assessment & Plan: -stable continue home medications Code(s): I10 - ESSENTIAL (PRIMARY) HYPERTENSION (6) Hypothyroidism Current Visit: Yes Status: Acute Assessment & Plan: -continue levothyroxine Code(s): E03.9 - HYPOTHYROIDISM, UNSPECIFIED (7) Chronic anemia Current Visit: Yes Status: Acute Assessment & Plan: -stable, will continue to monitor, transfuse if hgb <7 Code(s): D64.9 - ANEMIA, UNSPECIFIED (8) History of CVA with residual deficit Current Visit: Yes Status: Acute Assessment & Plan: -noted with residual weakness at baseline Code(s): I69.30 - UNSPECIFIED SEQUELAE OF CEREBRAL INFARCTION (9) Generalized weakness Current Visit: Yes Status: Acute Assessment & Plan: -2/2 to infectious etiology/known h/o cva with residual weakness -PT/OT eval Code(s): R53.1 - WEAKNESS <ADALID VÁSQUEZ - Last Filed: 11/30/23 12:50> RAJINDER Encounter - RAJINDER Encounter Attestation RAJINDER Encounter Attestation: "IhjazzylysArabella,RAEGAN LEDEZMA andhavediscussed pertinent aspects of their care with Adalid Vásquez and agree with the history, ph ysical exam (any modifications based on my personal exam will be noted below), assessment, and plan as outlined in original note. Please see immediately below for my summary of findings and additional assessment and plan along with any meaningful corrections/explanations to the Subjective/Objective portions of the RAJINDER note will be noted." My portion of the encounter took place via telemedicine. -Pneumonia, COPD, lung cancer, NSTEMI. Feels better today. Continue broad spectrum antibiotics. <LUAN MO - Last Filed: 11/30/23 23:02>
[2023-11-30] MEDS: solu-MEDROL 40 MG, Sterile H2O 10 ml 1 ML IV SCH ×6 (06:37→21:38)
[2023-11-30] MEDS: PIPERACILLIN/TAZOBACTAM 3.375 GM in Sodium Chloride 100ML MINI-BAG PLUS 100 ML IV SCH ×4 (06:38→23:11)
[2023-11-30] MEDS ORDERED: DUONEB 0.5-3 MG/3 ml Neb IH SCH (07:00)
[2023-11-30 07:25] LABS: Appearance Clear (Clear); Bilirubin Negative (Negative); Blood Negative (Negative); Glucose, Urine Negative (Negative); Ketones Negative (Negative); Leukocyte Esterase Small (Negative); Nitrite Negative (Negative); Protein,Urine Dip Negative (Negative); Specific Gravity 1.015 (1.005-1.030)
[2023-11-30 07:26] LABS: Bacteria None Seen /HPF (None Seen); Epithelial Cells None Seen /HPF (None Seen); RBC 0-2 /HPF (0-5)
[2023-11-30 07:27] LABS: ADD URINE CULTURE? NO (NO)
--- NOTE | 2023-11-30 08:50 | XRAY ---
Indication: Short of breath. Comparison: February 14, 2023 Portable chest again hyperinflated with new left lower and lesser degree right lower lobe airspace disease without consolidation/large effusion. 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 Bony thorax intact again with osteopenia and degenerative changes.
[2023-11-30] MEDS ORDERED: FLUOROMETHOLONE ACETATE OP SCH (10:00)
[2023-11-30] MEDS: Protonix 40MG Tablet PO SCH (10:55)
[2023-11-30] MEDS: LIORESAL 10 MG PO SCH ×2 (10:55→21:38)
[2023-11-30] MEDS: Lopressor 50 MG PO SCH ×2 (10:56→21:38)
[2023-11-30] MEDS: THERAGRAN MULTIVITAMIN PO SCH (10:56)
[2023-11-30] MEDS: FEOSOL 325 MG PO SCH ×2 (10:56→21:38)
[2023-11-30] MEDS: Zestril 20 MG PO SCH (10:56)
[2023-11-30 10:57] LABS: Hematocrit 28.7 % (42-50); Hemoglobin 9.2 g/dL (12.5-18.0); Mean Cell Volume 95.3 fL (78-100); Mean Corpuscular Hemoglobin 30.6 pg (26-32); Mean Corpuscular Hgb Concent. 32.1 g/dL (32-36); Mean Platelet Volume 11.4 fL (7.5-11.0); Platelet Count 202 x10^3/uL (150-450); Red Blood Count 3.01 x10^6/uL (4.1-5.6); Red Cell Distribution Width 17.4 % (11.5-14.0); White Blood Count 10.2 x10^3/uL (4.0-10.5)
[2023-11-30] MEDS: SYNTHROID 112 MCG PO SCH (10:57)
[2023-11-30] MEDS: PATIENT OWN MEDICATION OP SCH ×4 (10:57→21:36)
[2023-11-30] MEDS: Cardizem CD PO SCH (10:57)
[2023-11-30] MEDS: ENOXAPARIN SODIUM SQ SCH ×2 (10:57→13:32)
[2023-11-30 11:02] LABS: ALBUMIN 3.1 g/dL (3.5-5.0); ANION GAP 11.8 MEQ/L (5-15); BILIRUBIN,TOTAL 0.5 mg/dL (0.2-1.3); Calcium 8.6 mg/dL (8.4-10.2); Creatinine 1 1.2 mg/dL (0.66-1.25); EST GLOMERULAR FILTRATION RATE 59.6 ML/MIN; Potassium 4.4 mmol/L (3.5-5.1); Total Protein 6.2 g/dL (6.3-8.2)
[2023-11-30 11:56] LABS: Lymphocytes 2 % (24-44); Neutrophils 98 % (36.-66.); Total Cells Counted 100
[2023-11-30 11:59] LABS: ANISOCYTOSIS 1+; Hypochromia 1+; Platelet Estimate NORMAL (NORMAL); Toxic Granulation 1+
[2023-11-30] MEDS: Miralax Powder 17GM PACKET PO PRN (18:24)
[2023-11-30] MEDS: Zithromax 500 MG/ 250 ML NaCl Premix 500 MG/250 ML IVPB IV SCH (21:36)
[2023-11-30] MEDS: Zocor 10MG PO SCH (21:38)
--- NOTE | 2023-12-01 05:13 | PCM.DS ---
Discharge Summary Date of Admission: 11/29/23 23:36 Date of Discharge: 12/01/23 Admitting Physician: DENIS SMALLS MD Primary Care Provider: ALLIE GUDINO TANYA Allergies Allergies No Known Drug Allergies Allergy (Verified 11/29/23 19:21) Hospital Summary - Hospital Course Hospital Course: Mr. Alonso is an 83 year-old male with COPD, chronic hypoxemic respiratory failure, lung cancer s/p XRT + Chemotherapy, hypothyroidism, HTN, chronic anemia, and CVA with residual weakness who presents with shortness of breath and cough. He admits to one day of symptoms, and upon arrival to [place], laboratory data revealed anemia and elevated cardiac enzymes, while imaging revealed Multifocal patchy areas of consolidation in basal segments of left lower lobe with few small patchy areas of consolidation also noted in posterobasal segment of right lower lobe. Primary consolidation is pneumonia. Patient admitted for pneumonia. Currently being treated with zosyn/azithromycin. 11/30/23: Met with patient and caregiver at bedside. Endorses improvement of dyspnea and cough. He is 2L at QHS baseline, requiring 2L continuous. Lungs with fine crackles at bases on auscultation. Patient reports that due to recent brain bleed in January he is unable to be anticoagulated. He is currently receiving VP16 with Dr. Thomas (oncology) for his lung cancer, S/P radiation. Denies fever,abdominal pain, [id number], dizziness, N/V/D. Discharge Note New Diagnosis: Pneumonia New Medications: Cepdoxime Follow Up: PCP Latest Assessment & Plan 1) Pneumonia Current Visit: Yes Status: Acute Assessment & Plan: -Supplemental oxygen for goal spo2>92% -zosyn/azithromycin -RT eval -duonebs/solumedrol -WBC/LA wnl -respiratory viral panel negative -CT findings showing IMPRESSION: 1. Multifocal patchy areas of consolidation in basal segments of left lower lobe with few small patchy areas of consolidation also noted in posterobasal segment of right lower lobe. Primary consolidation is pneumonia. Recommended Clinical/radiographic follow up 2. Clustered small nodules in tree in bud pattern noted in posterior segment of right upper lobe, superior and basal segments of right lower lobe, representing acute infectious bronchiolitis. 3. These are few interval findings when compared to previous chest radiograph dated 02/14/2023 -blood cultures pending Code(s): J18.9 - PNEUMONIA, UNSPECIFIED ORGANISM (2) NSTEMI (non-ST elevated myocardial infarction) Current Visit: Yes Status: Acute Assessment & Plan: -Trops elevated/downtrending, repeat in a.m. - could be respiratory driven -ekg showing normal sinus with no acute ischemic changes will repeat -denies chest pain -echo Code(s): I21.4 - NON-ST ELEVATION (NSTEMI) MYOCARDIAL INFARCTION (3) Chronic hypoxic respiratory failure Current Visit: Yes Status: Acute Assessment & Plan: -2/2 to pneumonia, see above (4) Lung cancer Current Visit: Yes Status: Acute Assessment & Plan: -s/p chemo/radiation Code(s): C34.90 - MALIGNANT NEOPLASM OF UNSP PART OF UNSP BRONCHUS OR LUNG (5) HTN (hypertension) Current Visit: Yes Status: Acute Assessment & Plan: -stable continue home medications Code(s): I10 - ESSENTIAL (PRIMARY) HYPERTENSION (6) Hypothyroidism Current Visit: Yes Status: Acute Assessment & Plan: -continue levothyroxine Code(s): E03.9 - HYPOTHYROIDISM, UNSPECIFIED (7) Chronic anemia Current Visit: Yes Status: Acute Assessment & Plan: -stable, will continue to monitor, transfuse if hgb <7 Code(s): D64.9 - ANEMIA, UNSPECIFIED (8) History of CVA with residual deficit Current Visit: Yes Status: Acute Assessment & Plan: -noted with residual weakness at baseline Code(s): I69.30 - UNSPECIFIED SEQUELAE OF CEREBRAL INFARCTION (9) Generalized weakness Current Visit: Yes Status: Acute Assessment & Plan: -2/2 to infectious etiology/known h/o cva with residual weakness -PT/OT eval Code(s): R53.1 - WEAKNESS I spent 35 minutes [id number] with the patient on the day of discharge p erforming discharge exam, discussing hospital stay and discharge instructions with patient and caregivers, preparation of discharge records, prescriptions & referral forms and addressing any questions/concerns the patient had as documented above. - Vitals & Intake/Output Vital Signs: Vital Signs Temperature 97.1 F 12/01/23 03:00 Pulse Rate 60 12/01/23 03:00 Respiratory Rate 18 12/01/23 03:00 Blood Pressure 141/63 12/01/23 03:00 O2 Sat by Pulse Oximetry 100 12/01/23 03:00 Intake & Output: Intake & Output 11/28/23 11/29/23 11/30/23 12/01/23 11:59 11:59 11:59 11:59 Intake Total 380 820 Output Total 500 1100 Balance -120 -280 Weight 74.7 kg - Lab Result Diagrams: 11/30/23 10:05 11/30/23 10:05 Lab Results-Last 24 Hrs: Lab Results-Last 24 Hours 11/30/23 11/30/23 11/30/23 Range/Units 03:30 06:48 10:05 WBC (4.0-10.5) x10^3/uL RBC (4.1-5.6) x10^6/uL Hgb (12.5-18.0) g/dL Hct (42-50) % MCV (78-100) fL MCH (26-32) pg MCHC (32-36) g/dL RDW (11.5-14.0) % Plt Count (150-450) x10^3/uL MPV (7.5-11.0) fL Segmented Neutrophils (36.-66.) % Lymphocytes (Manual) (24-44) % Hypochromia Toxic Granulation Platelet Estimate (NORMAL) RBC Morphology Anisocytosis Sodium (137-145) mmol/L Potassium (3.5-5.1) mmol/L Chloride (98-107) mmol/L Carbon Dioxide (22-30) mmol/L Anion Gap (5-15) MEQ/L BUN (9-20) mg/dL Creatinine (0.66-1.25) mg/dL Estimated GFR ML/MIN Glucose (74-106) mg/dL Calcium (8.4-10.2) mg/dL Total Bilirubin (0.2-1.3) mg/dL AST (17-59) U/L ALT (0-50) U/L Alkaline Phosphatase (38-126) U/L Troponin I 0.075 H* 0.090 H* (0.000-0.034) ng/mL Serum Total Protein (6.3-8.2) g/dL Albumin (3.5-5.0) g/dL Urine Color Yellow (Yellow) Urine Appearance Clear (Clear) Urine pH 7.0 (4.6-8.0) Ur Specific [place] 1.015 (1.005-1.030) Urine Protein Negative (Negative) Urine Glucose (UA) Negative (Negative) mg/dL Urine Ketones Negative (Negative) Urine Blood Negative (Negative) Urine Nitrite Negative (Negative) Urine Bilirubin Negative (Negative) Urine Urobilinogen 1.0 A (0.2) mg/dL Ur Leukocyte Esterase Small A (Negative) Urine Microscopic RBC 0-2 (0-5) /HPF Urine Microscopic WBC 3-5 (0-5) /HPF Ur Epithelial Cells None Seen (None Seen) /HPF Urine Bacteria None Seen (None Seen) /HPF Urine Culture Reflexed NO (NO) 11/30/23 11/30/23 11/30/23 Range/Units 10:05 10:05 16:40 WBC 10.2 (4.0-10.5) x10^3/uL RBC 3.01 L (4.1-5.6) x10^6/uL Hgb 9.2 L (12.5-18.0) g/dL Hct 28.7 L (42-50) % MCV 95.3 (78-100) fL MCH 30.6 (26-32) pg MCHC 32.1 (32-36) g/dL RDW 17.4 H (11.5-14.0) % Plt Count 202 (150-450) x10^3/uL MPV 11.4 H (7.5-11.0) fL Segmented Neutrophils 98 H (36.-66.) % Lymphocytes (Manual) 2 L (24-44) % Hypochromia 1+ Toxic Granulation 1+ Platelet Estimate NORMAL (NORMAL) RBC Morphology ABNORMAL Anisocytosis 1+ Sodium 134 L (137-145) mmol/L Potassium 4.4 (3.5-5.1) mmol/L Chloride 101 (98-107) mmol/L Carbon Dioxide 25 (22-30) mmol/L Anion Gap 11.8 (5-15) MEQ/L BUN 30 H (9-20) mg/dL Creatinine 1.20 (0.66-1.25) mg/dL Estimated GFR 59.6 ML/MIN Glucose 218 H (74-106) mg/dL Calcium 8.6 (8.4-10.2) mg/dL Total Bilirubin 0.50 (0.2-1.3) mg/dL AST 19 (17-59) U/L ALT 15 (0-50) U/L Alkaline Phosphatase 89 (38-126) U/L Troponin I 0.081 H* (0.000-0.034) ng/mL Serum Total Protein 6.2 L (6.3-8.2) g/dL Albumin 3.1 L (3.5-5.0) g/dL Urine Color (Yellow) Urine Appearance (Clear) Urine pH (4.6-8.0) Ur Specific [place] (1.005-1.030) Urine Protein (Negative) Urine Glucose (UA) (Negative) mg/dL Urine Ketones (Negative) Urine Blood (Negative) Urine Nitrite (Negative) Urine Bilirubin (Negative) Urine Urobilinogen (0.2) mg/dL Ur Leukocyte Esterase (Negative) Urine Microscopic RBC (0-5) /HPF Urine Microscopic WBC (0-5) /HPF Ur Epithelial Cells (None Seen) /HPF Urine Bacteria (None Seen) /HPF Urine Culture Reflexed (NO) - Radiology Exams Ordered Rad Exams-Entire Visit: Radiology Procedures Category Date Time Status CHEST 1 VIEW (PORTABLE) Stat Exams 11/29/23 19:53 Completed CHEST WITHOUT CONTRAST [CT] Stat Exams 11/29/23 22:38 Completed - Procedures and Test Procedures and Tests throughout Hospitalization: Therapy Orders & Screens 11/29/23 23:27 Respiratory Therapy Consult ONCE Comment: Reason For Exam: 11/30/23 01:07 Oxygen Nasal Cannula 2 lpm Comment: Respiratory Therapy Assessment DAILY Comment: 11/30/23 01:25 PT Screen per Nursing Assess ONCE Comment: Protocol Order Physician Instructions: Greater than 3 points order PT Admission Screenin Reason For Exam: Triggered on Admission Diagnosis: PNEUMONIA Open Wound/Cellutlitis/Pressure Ulcers: Yes Acute Fx/ORIF/Change in wt bearing status: No Severe MUSCULOSKELETAL pain: No ADL Dysfunction: No Acute CVA w/Hemiparesis/Hemiplegia: No Decreased Functional Mobility/Strength: No Sprain/Strain: No Acute Post-op Mobility Dysfunction: No Total Points: 5 RT Screen per Nursing Assess ONCE Comment: Protocol Order Physician Instructions: Greater than 3 points order RT Admission Screen Reason For Exam: Triggered on Admission Diagnosis: PNEUMONIA Diagnosis: PNEUMONIA Pneumonia: Yes Home O2: Yes: 2 Asthma: No CHF: No Home CPAP/BIPAP: No Home Nebs/MDI: No Total Points: 8 ST Screen per Nursing Assess ONCE Comment: Protocol Order Physician Instructions: Greater than [address] Admission Screening Reason For Exam: Triggered on Admission Diagnosis: PNEUMONIA CVA/Dyshpagia/Aphasia: No Cognitive Deficits: No Dehydration/Nutrition Deficit: No Reflux: No Oral-Motor Difficulties: No Pneumonia: Yes Mcfp Resident: No Total Points: 5 11/30/23 07:45 EKG ROUTINE Comment: Diagnosis: Perineal Pain 11/30/23 13:37 RT Miscellaneous Order ROUTINE Comment: Physician Instructions: Reason For Exam: WEAN O2- ONLY WEARS 2L AT HS Diagnosis: Perineal Pain Discharge Exam Wound Assessment: Skin/Wound Assessment Wound/Incision Assessment Start: 11/30/23 01:25 Text: Status: Active Freq: Q6H Protocol: Document 12/01/23 01:36 (Rec: 12/01/23 01:39 [id number]) Wound Photo Photo Taken No Final Diagnosis/Problem List - Final Discharge Diagnosis/Problem (1) Pneumonia Current Visit: Yes Status: Acute Code(s): J18.9 - PNEUMONIA, UNSPECIFIED ORGANISM (2) NSTEMI (non-ST elevated myocardial infarction) Current Visit: Yes Status: Acute Code(s): I21.4 - NON-ST ELEVATION (NSTEMI) MYOCARDIAL INFARCTION (3) Chronic hypoxic respiratory failure Current Visit: Yes Status: Acute (4) Lung cancer Current Visit: Yes Status: Acute Code(s): C34.90 - MALIGNANT NEOPLASM OF UNSP PART OF UNSP BRONCHUS OR LUNG (5) HTN (hypertension) Current Visit: Yes Status: Acute Code(s): I10 - ESSENTIAL (PRIMARY) HYPERTENSION (6) Hypothyroidism Current Visit: Yes Status: Acute Code(s): E03.9 - HYPOTHYROIDISM, UNSPECIFIED (7) Chronic anemia Current Visit: Yes Status: Acute Code(s): D64.9 - ANEMIA, UNSPECIFIED (8) History of CVA with residual deficit Current Visit: Yes Status: Acute Code(s): I69.30 - UNSPECIFIED SEQUELAE OF CEREBRAL INFARCTION (9) Generalized weakness Current Visit: Yes Status: Acute Code(s): R53.1 - WEAKNESS - Discharge Disposition: Home, Self-Care Condition: Stable Prescriptions: No Action Levothyroxine Sodium 112 Mcg [Synthroid 112 Mcg] 112 mcg PO DAILY Atorvastatin Calcium 40 mg PO HS Acetaminophen 500 mg [Tylenol Extra Strength 500 mg] 500 mg PO Q4HPRN PRN PRN Reason: Pain And/Or Fever Omeprazole 40 mg PO DAILY Metoprolol Tartrate 50 mg [Lopressor 50 MG] 50 mg PO BID Ketorolac Tromethamine 0.5% [Acular OPTH SINA] 5 ml OP BID Timolol Maleate/Dorzolam HCl [Cosopt Ophthalmic 10 ml] 1 drop OP BID Fluorometholone Acetate [Flarex] 5 ml OP DAILY Lisinopril 20 mg [Zestril 20 MG] 40 mg PO DAILY Diltiazem HCl [Cardizem LA] 300 mg PO DAILY Ferrous Sulfate 1 tab PO BID Ammonium Lactate [Ammonium Lactate 12%] See Rx Instructions .ROUTE .COMPLEX Multivitamin 1 tab PO DAILY Baclofen 10 mg [Lioresal 10 mg] 1 tab PO BID Latanoprost [Xalatan] 1 drop HS Follow up with: ALLIE GUDINO MD [Primary Care Provider] - ERLIN PARKER Jr., MD [Family Provider] -
[2023-12-01 05:48] LABS: Hematocrit 27.7 % (42-50); Mean Cell Volume 93.6 fL (78-100); Mean Corpuscular Hemoglobin 30.4 pg (26-32); Mean Corpuscular Hgb Concent. 32.5 g/dL (32-36); Mean Platelet Volume 11.4 fL (7.5-11.0); Platelet Count 200 x10^3/uL (150-450); Red Blood Count 2.96 x10^6/uL (4.1-5.6); Red Cell Distribution Width 17.2 % (11.5-14.0); White Blood Count 13.4 x10^3/uL (4.0-10.5)
[2023-12-01 05:57] LABS: ALBUMIN 3.2 g/dL (3.5-5.0); BILIRUBIN,TOTAL 0.4 mg/dL (0.2-1.3); Calcium 8.7 mg/dL (8.4-10.2); Creatinine 1 1.33 mg/dL (0.66-1.25); EST GLOMERULAR FILTRATION RATE 52.7 ML/MIN; MAGNESIUM 2.1 mg/dL (1.6-2.3); Potassium 4.1 mmol/L (3.5-5.1); Total Protein 6.5 g/dL (6.3-8.2)
[2023-12-01] MEDS: PIPERACILLIN/TAZOBACTAM 3.375 GM in Sodium Chloride 100ML MINI-BAG PLUS 100 ML IV SCH ×3 (06:04→17:06)
[2023-12-01] MEDS: solu-MEDROL 40 MG, Sterile H2O 10 ml 1 ML IV SCH ×2 (06:04)
[2023-12-01] MEDS: Sodium Chloride 0.9% 1000 ML 1,000 ML IV SCH ×2 (08:01→18:04)
--- NOTE | 2023-12-01 09:17 | PCM.NOTE ---
Date and Time: 12/01/23 0912 Subjective Assessment: Mr. Alonso is an 83 year-old male with COPD, chronic hypoxemic respiratory failure, lung cancer s/p XRT + Chemotherapy, hypothyroidism, HTN, chronic anemia, and CVA with residual weakness who presents with shortness of breath and cough. He admits to one day of symptoms, and upon arrival to [place], laboratory data revealed anemia and elevated cardiac enzymes, while imaging revealed Multifocal patchy areas of consolidation in basal segments of left lower lobe with few small patchy areas of consolidation also noted in posterobasal segment of right lower lobe. Primary consolidation is pneumonia. Patient admitted for pneumonia. Currently being treated with zosyn/azithromycin. 11/30/23: Met with patient and caregiver at bedside. Endorses improvement of dyspnea and cough. He is 2L at QHS baseline, requiring 2L continuous. Lungs with fine crackles at bases on auscultation. Patient reports that due to recent brain bleed in January he is unable to be anticoagulated. He is currently receiving VP16 with Dr. Thomas (oncology) for his lung cancer, S/P radiation. Denies fever,abdominal pain, MOCTEZUMA, dizziness, N/V/D. 12/01/23: Patient endorsing improvement overnight, feels like he is breathing better. Overnight events noted of desaturation while patient sleeping to 85%. Patient was placed on 4L oxymask. States he is still weak and feels like he needs another day of IP. Will have to qualify pt for continuous home oxygen on discharge. Lung sounds clear throughout. Denies fever, cp, abdominal pain, MOCTEZUMA, dizziness, N/V/D. <ADALID VÁSQUEZ - Last Filed: 12/01/23 09:12> Date and Time: 12/01/233 <LUAN MO - Last Filed: 12/01/23 22:14> - Review of Systems Constitutional: Weakness Eyes: No Symptoms Ears, Nose, & Throat: No Symptoms Respiratory: Cough, Short Of Breath Cardiac: No Symptoms Abdominal/Gastrointestinal: No Symptoms Genitourinary Symptoms: No Symptoms Musculoskeletal: No Symptoms Skin: No Symptoms Neurological: No Symptoms Psychological: No Symptoms Endocrine: No Symptoms Hematologic/Lymphatic: Anemia <ADALID VÁSQUEZ - Last Filed: 12/01/23 09:12> Objective Exam General Appearance: no apparent distress Neurologic Exam: alert, oriented x 3, cooperative Skin Exam: normal color Wound Assessment: Skin/Wound Assessment Wound/Incision Assessment Start: 11/30/23 01:25 Text: Status: Active Freq: Q6H Protocol: Document 12/01/23 08:10 JN (Rec: 12/01/23 08:18 JN [id number]) Wound Photo Photo Taken No Eye Exam: PERRL Ears, Nose, Throat Exam: normal ENT inspection Neck Exam: normal inspection Respiratory Exam: normal breath sounds, lungs clear Cardiovascular Exam: regular rate/rhythm, normal heart sounds Gastrointestinal/Abdomen Exam: soft, normal bowel sounds Extremity Exam: normal inspection Back Exam: normal inspection Male Genitalia Exam: deferred Rectal Exam: deferred <ADALID VÁSQUEZ - Last Filed: 12/01/23 09:12> Wound Assessment: Skin/Wound Assessment Wound/Incision Assessment Start: 11/30/23 01:25 Text: Status: Active Freq: Q6H Protocol: Document 12/01/23 20:00 AB (Rec: 12/01/23 20:11 AB [id number]) Wound Photo Photo Taken No <LUAN MO - Last Filed: 12/01/23 22:14> OBJECTIVE DATA Vital Signs: Vital Signs - 24 hr Temp Pulse Resp BP Pulse Ox 12/01/23 08:00 97.6 F 68 17 150/66 97 12/01/23 07:40 71 18 94 L 12/01/23 03:00 97.1 F 60 18 141/63 100 11/30/23 23:00 97.7 F 60 18 114/65 95 11/30/23 19:00 97.1 F 66 18 105/54 99 11/30/23 18:50 60 18 95 11/30/23 15:20 93 L 11/30/23 15:07 61 22 93 L 11/30/23 15:00 98.1 F 60 16 115/56 97 11/30/23 11:41 98.0 F 72 26 H 131/61 100 11/30/23 11:22 100 11/30/23 10:51 63 18 127/62 97 Pain Assessment - Last Documented Pain Intensity 0 Intake and Output: Intake & Output 11/28/23 11/29/23 11/30/23 12/01/23 11:59 11:59 11:59 11:59 Intake Total 380 940 Output Total 500 1100 Balance -120 -160 Weight 74.7 kg Lab Results: Lab Results-Last 24 Hours 11/30/23 11/30/23 11/30/23 Range/Units 10:05 10:05 10:05 WBC 10.2 (4.0-10.5) x10^3/uL RBC 3.01 L (4.1-5.6) x10^6/uL Hgb 9.2 L (12.5-18.0) g/dL Hct 28.7 L (42-50) % MCV 95.3 (78-100) fL MCH 30.6 (26-32) pg MCHC 32.1 (32-36) g/dL RDW 17.4 H (11.5-14.0) % Plt Count 202 (150-450) x10^3/uL MPV 11.4 H (7.5-11.0) fL Segmented Neutrophils 98 H (36.-66.) % Lymphocytes (Manual) 2 L (24-44) % Hypochromia 1+ Toxic Granulation 1+ Platelet Estimate NORMAL (NORMAL) RBC Morphology ABNORMAL Anisocytosis 1+ Sodium 134 L (137-145) mmol/L Potassium 4.4 (3.5-5.1) mmol/L Chloride 101 (98-107) mmol/L Carbon Dioxide 25 (22-30) mmol/L Anion Gap 11.8 (5-15) MEQ/L BUN 30 H (9-20) mg/dL Creatinine 1.20 (0.66-1.25) mg/dL Estimated GFR 59.6 ML/MIN Glucose 218 H (74-106) mg/dL Calcium 8.6 (8.4-10.2) mg/dL Magnesium (1.6-2.3) mg/dL Total Bilirubin 0.50 (0.2-1.3) mg/dL AST 19 (17-59) U/L ALT 15 (0-50) U/L Alkaline Phosphatase 89 (38-126) U/L Troponin I 0.090 H* (0.000-0.034) ng/mL Serum Total Protein 6.2 L (6.3-8.2) g/dL Albumin 3.1 L (3.5-5.0) g/dL 11/30/23 12/01/23 12/01/23 Range/Units 16:40 05:12 05:12 WBC 13.4 H (4.0-10.5) x10^3/uL RBC 2.96 L (4.1-5.6) x10^6/uL Hgb 9.0 L (12.5-18.0) g/dL Hct 27.7 L (42-50) % MCV 93.6 (78-100) fL MCH 30.4 (26-32) pg MCHC 32.5 (32-36) g/dL RDW 17.2 H (11.5-14.0) % Plt Count 200 (150-450) x10^3/uL MPV 11.4 H (7.5-11.0) fL Segmented Neutrophils (36.-66.) % Lymphocytes (Manual) (24-44) % Hypochromia Toxic Granulation Platelet Estimate (NORMAL) RBC Morphology Anisocytosis Sodium 133 L (137-145) mmol/L Potassium 4.1 (3.5-5.1) mmol/L Chloride 103 (98-107) mmol/L Carbon Dioxide 27 (22-30) mmol/L Anion Gap 7.0 (5-15) MEQ/L BUN 36 H (9-20) mg/dL Creatinine 1.33 H (0.66-1.25) mg/dL Estimated GFR 52.7 ML/MIN Glucose 149 H (74-106) mg/dL Calcium 8.7 (8.4-10.2) mg/dL Magnesium 2.1 (1.6-2.3) mg/dL Total Bilirubin 0.40 (0.2-1.3) mg/dL AST 17 (17-59) U/L ALT 12 (0-50) U/L Alkaline Phosphatase 91 (38-126) U/L Troponin I 0.081 H* (0.000-0.034) ng/mL Serum Total Protein 6.5 (6.3-8.2) g/dL Albumin 3.2 L (3.5-5.0) g/dL Radiology Exams: Radiology Procedures Category Date Time Status CHEST 1 VIEW (PORTABLE) Stat Exams 11/29/23 19:53 Completed CHEST WITHOUT CONTRAST [CT] Stat Exams 11/29/23 22:38 Completed Multi-Disciplinary Progress Notes: Multi-Disciplinary Progress Notes 12/01/23 00:47 Respiratory Note by Nettie Peres RT called to patient's bedside to evaluate patient's SpO2. Upon arrival to bedside patient's SpO2 was 85% on 3L nasal cannula, patient was sleeping. Patient was placed on 3L oxymask, SpO2 increased to 88%. Oxymask was increased to 4L, SpO2 increased to 94%. Patient's breathsounds are clear throughout. Patient was coached on deep breathing and coughing. Patient reports no SOB at this time. RN notified of increase in O2 Initialized on 12/01/23 00:47 - END OF NOTE 11/30/23 15:44 Case Management Note by Nicki Rosales PATIENT IS [facility]- [facility]- HIS OXYGEN IS BILLED THRU MEDICARE. [place] FORM PLACED ON CHART IN CASE 24 HR O2 NEEDED AT DC Initialized on 11/30/23 15:44 - END OF NOTE 11/30/23 15:11 Respiratory Note by Jailene Hernandez TALKED WITH PATIENT ABOUT NEBULIZER TREATMENTS. PATIENT STATES HE DOES NOT TAKE THEM AT HOME. PATIENT ALSO STATES THAT HE THOUGHT THE DOCTOR SAID HE WOULD GET THEM 4 TIMES A DAY, AND WAS JUST MAKING SURE HE HEARD CORRECTLY. THIS RT EXPLAINED THE NEED FOR ONE AND HE UNDERSTANDS NOW. PATIENT IS CLEAR BILATERALLY T/O. PRN NEBULIZER IS NOT INDICATED AT THIS TIME. THIS RT DISCUSSED WITH PATIENT THAT AT ANY TIME HE MAY HAVE ONE. HE STATES HE DOES NOT FEEL HE NEEDS ONE RIGHT NOW. WEANED TO ROOM AIR 93%. PATIENT WEARS ROOM AIR DURING THE DAY AND 2 LITERS AT [facility]. PATIENTS CALL LIGHT WITHIN REACH AND WILL REASSESS THIS EVENING. Initialized on 11/30/23 15:11 - END OF NOTE <ADALID VÁSQUEZ - Last Filed: 12/01/23 09:12> Vital Signs: Vital Signs - 24 hr Temp Pulse Resp BP Pulse Ox 12/01/23 20:00 97.9 F 61 20 163/72 96 12/01/23 18:41 95 12/01/23 18:35 61 18 97 12/01/23 16:00 97.7 F 62 18 150/67 93 L 12/01/23 12:00 97.5 F 61 17 168/77 95 01/13/24 09:41 61 18 148/66 98 12/01/23 08:00 97.6 F 68 17 150/66 97 12/01/23 07:40 71 18 94 L 12/01/23 03:00 97.1 F 60 18 141/63 100 11/30/23 23:00 97.7 F 60 18 114/65 95 Pain Assessment - Last Documented Pain Intensity 0 Intake and Output: Intake & Output 11/29/23 11/30/23 12/01/23 12/02/23 11:59 11:59 11:59 11:59 Intake Total 380 940 560 Output Total 500 1100 225 Balance -120 -160 335 Weight 74.7 kg Lab Results: Lab Results-Last 24 Hours 12/01/23 12/01/23 Range/Units 05:12 05:12 WBC 13.4 H (4.0-10.5) x10^3/uL RBC 2.96 L (4.1-5.6) x10^6/uL Hgb 9.0 L (12.5-18.0) g/dL Hct 27.7 L (42-50) % MCV 93.6 (78-100) fL MCH 30.4 (26-32) pg MCHC 32.5 (32-36) g/dL RDW 17.2 H (11.5-14.0) % Plt Count 200 (150-450) x10^3/uL MPV 11.4 H (7.5-11.0) fL Segmented Neutrophils 86 H (36.-66.) % Band Neutrophils 6 H (0.0-2.0) % Lymphocytes (Manual) 2 L (24-44) % Monocytes (Manual) 6 (0.0-12.0) % Toxic Granulation 2+ Platelet Estimate NORMAL (NORMAL) RBC Morphology ABNORMAL Sodium 133 L (137-145) mmol/L Potassium 4.1 (3.5-5.1) mmol/L Chloride 103 (98-107) mmol/L Carbon Dioxide 27 (22-30) mmol/L Anion Gap 7.0 (5-15) MEQ/L BUN 36 H (9-20) mg/dL Creatinine 1.33 H (0.66-1.25) mg/dL Estimated GFR 52.7 ML/MIN Glucose 149 H (74-106) mg/dL Calcium 8.7 (8.4-10.2) mg/dL Magnesium 2.1 (1.6-2.3) mg/dL Total Bilirubin 0.40 (0.2-1.3) mg/dL AST 17 (17-59) U/L ALT 12 (0-50) U/L Alkaline Phosphatase 91 (38-126) U/L Serum Total Protein 6.5 (6.3-8.2) g/dL Albumin 3.2 L (3.5-5.0) g/dL Radiology Exams: Radiology Procedures Category Date Time Status CHEST WITHOUT CONTRAST [CT] Stat Exams 11/29/23 22:38 Completed Multi-Disciplinary Progress Notes: Multi-Disciplinary Progress Notes 12/01/23 00:47 Respiratory Note by Nettie Peres RT called to patient's bedside to evaluate patient's SpO2. Upon arrival to bedside patient's SpO2 was 85% on 3L nasal cannula, patient was sleeping. Patient was placed on 3L oxymask, SpO2 increased to 88%. Oxymask was increased to 4L, SpO2 increased to 94%. Patient's breathsounds are clear throughout. Patient was coached on deep breathing and coughing. Patient reports no SOB at this time. RN notified of increase in O2 Initialized on 12/01/23 00:47 - END OF NOTE <LUAN MO - Last Filed: 12/01/23 22:14> Assessment/Plan (1) Pneumonia Current Visit: Yes Status: Acute Assessment & Plan: -Supplemental oxygen for goal spo2>92% -zosyn/azithromycin -RT eval -duonebs/solumedrol -WBC/LA wnl -respiratory viral panel negative -CT findings showing IMPRESSION: 1. Multifocal patchy areas of consolidation in basal segments of left lower lobe with few small patchy areas of consolidation also noted in posterobasal segment of right lower lobe. Primary consolidation is pneumonia. Recommended Clinical/radiographic follow up 2. Clustered small nodules in tree in bud pattern noted in posterior segment of right upper lobe, superior and basal segments of right lower lobe, representing acute infectious bronchiolitis. 3. These are few interval findings when compared to previous chest radiograph dated 02/14/2023 -blood cultures pending 12/01: -BC NGTD -Lungs clear -requiring continuous oxygen, will need to get qualified for continuous home o2 on d/c -solumedrol changed to prednisone Code(s): J18.9 - PNEUMONIA, UNSPECIFIED ORGANISM (2) NSTEMI (non-ST elevated myocardial infarction) Current Visit: Yes Status: Acute Assessment & Plan: -Trops elevated/downtrending, repeat in a.m. - could be respiratory driven -ekg showing normal sinus with no acute ischemic changes will repeat -denies chest pain -echo 12/01: -Echo pending -trops downtrending, most likely secondary to pneuomonia Code(s): I21.4 - NON-ST ELEVATION (NSTEMI) MYOCARDIAL INFARCTION (3) Chronic hypoxic respiratory failure Current Visit: Yes Status: Acute Assessment & Plan: -2/2 to pneumonia, see above (4) Lung cancer Current Visit: Yes Status: Acute Assessment & Plan: -s/p chemo/radiation Code(s): C34.90 - MALIGNANT NEOPLASM OF UNSP PART OF UNSP BRONCHUS OR LUNG (5) HTN (hypertension) Current Visit: Yes Status: Acute Assessment & Plan: -stable continue home medications Code(s): I10 - ESSENTIAL (PRIMARY) HYPERTENSION (6) Hypothyroidism Current Visit: Yes Status: Acute Assessment & Plan: -continue levothyroxine Code(s): E03.9 - HYPOTHYROIDISM, UNSPECIFIED (7) Chronic anemia Current Visit: Yes Status: Acute Assessment & Plan: -stable, will continue to monitor, transfuse if hgb <7 Code(s): D64.9 - ANEMIA, UNSPECIFIED (8) History of CVA with residual deficit Current Visit: Yes Status: Acute Assessment & Plan: -noted with residual weakness at baseline Code(s): I69.30 - UNSPECIFIED SEQUELAE OF CEREBRAL INFARCTION (9) Generalized weakness Current Visit: Yes Status: Acute Assessment & Plan: -2/2 to infectious etiology/known h/o cva with residual weakness -PT/OT eval Code(s): J18.9 - PNEUMONIA, UNSPECIFIED ORGANISM (2) NSTEMI (non-ST elevated myocardial infarction) Current Visit: Yes Status: Acute Code(s): I21.4 - NON-ST ELEVATION (NSTEMI) MYOCARDIAL INFARCTION (3) Chronic hypoxic respiratory failure Current Visit: Yes Status: Acute (4) Lung cancer Current Visit: Yes Status: Acute Code(s): C34.90 - MALIGNANT NEOPLASM OF UNSP PART OF UNSP BRONCHUS OR LUNG (5) HTN (hypertension) Current Visit: Yes Status: Acute Code(s): I10 - ESSENTIAL (PRIMARY) HYPERTENSION (6) Hypothyroidism Current Visit: Yes Status: Acute Code(s): E03.9 - HYPOTHYROIDISM, UNSPECIFIED (7) Chronic anemia Current Visit: Yes Status: Acute Code(s): D64.9 - ANEMIA, UNSPECIFIED (8) History of CVA with residual deficit Current Visit: Yes Status: Acute Code(s): I69.30 - UNSPECIFIED SEQUELAE OF CEREBRAL INFARCTION (9) Generalized weakness Current Visit: Yes Status: Acute Code(s): R53.1 - WEAKNESS <ADALID VÁSQUEZ - Last Filed: 12/01/23 09:12> RAJINDER Encounter - RAJINDER Encounter Attestation RAJINDER Encounter Attestation: "Ra[email or web address] Adler andhavediscussed pertinent aspects of their care with Adalid Wade agree with the history, physical exam (any modifications based on my personal exam will be noted below), assessment, and plan as outlined in original note. Please see immediately below for my summary of findings and additional assessment and plan along with any meaningful corrections/explanations to the Subjective/Objective portions of the RAJINDER note will be noted." My portion of the encounter took place via telemedicine. -Patient is feeling better with stable oxygen requirement. Anticipate discharge home tomorrow. <LUAN MO - Last Filed: 12/01/23 22:14>
[2023-12-01] MEDS: PATIENT OWN MEDICATION OP SCH ×4 (09:45→22:19)
[2023-12-01] MEDS: Protonix 40MG Tablet PO SCH (09:46)
[2023-12-01] MEDS: Miralax Powder 17GM PACKET PO PRN (09:46)
[2023-12-01] MEDS: LIORESAL 10 MG PO SCH ×2 (09:46→22:19)
[2023-12-01] MEDS: Docusate Sodium 100 MG PO SCH ×2 (09:46→22:19)
[2023-12-01] MEDS: DELTASONE 20 MG PO SCH (09:46)
[2023-12-01] MEDS: THERAGRAN MULTIVITAMIN PO SCH (09:46)
[2023-12-01] MEDS: Lopressor 50 MG PO SCH ×2 (09:46→22:19)
[2023-12-01] MEDS: FEOSOL 325 MG PO SCH ×2 (09:46→22:19)
[2023-12-01] MEDS: Zestril 20 MG PO SCH (09:46)
[2023-12-01] MEDS: SYNTHROID 112 MCG PO SCH (09:47)
[2023-12-01] MEDS: Cardizem CD PO SCH (09:47)
[2023-12-01 11:05] LABS: BAND 6 % (0.0-2.0); Lymphocytes 2 % (24-44); Monocyte 6 % (0.0-12.0); Neutrophils 86 % (36.-66.); Total Cells Counted 100
[2023-12-01 11:06] LABS: Platelet Estimate NORMAL (NORMAL); Toxic Granulation 2+
[2023-12-01] MEDS: Zocor 10MG PO SCH (22:19)
[2023-12-01] MEDS: Zithromax 500 MG/ 250 ML NaCl Premix 500 MG/250 ML IVPB IV SCH (22:24)
[2023-12-02] MEDS: PIPERACILLIN/TAZOBACTAM 3.375 GM in Sodium Chloride 100ML MINI-BAG PLUS 100 ML IV SCH ×3 (00:18→12:13)
[2023-12-02] MEDS ORDERED: CLONIDINE 0.1 MG TABLET PO ONE (04:32)
--- NOTE | 2023-12-02 05:10 | PCM.DS ---
Discharge Summary Date of Admission: 11/29/23 23:36 Date of Discharge: 12/02/23 Admitting Physician: DENIS SMALLS MD Primary Care Provider: ALLIE GUDINO <ADALID VÁSQUEZ - Last Filed: 12/02/23 12:30> Date of Admission: 11/29/23 23:36 Admitting Physician: DENIS SMALLS MD Primary Care Provider: ALLIE GUDINO <LUAN MO - Last Filed: 12/02/23 20:46> Allergies <ADALID VÁSQUEZ - Last Filed: 12/02/23 12:30> <LUAN MO - Last Filed: 12/02/23 20:46> Allergies No Known Drug Allergies Allergy (Verified 11/29/23 19:21) Hospital Summary - Hospital Course Hospital Course: Mr. Alonso is an 83 year-old male with COPD, chronic hypoxemic respiratory failure, lung cancer s/p XRT + Chemotherapy, hypothyroidism, HTN, chronic anemia, and CVA with residual weakness who presents with shortness of breath and cough. He admits to one day of symptoms, and upon arrival to [facility], laboratory data revealed anemia and elevated cardiac enzymes, while imaging revealed Multifocal patchy areas of consolidation in basal segments of left lower lobe with few small patchy areas of consolidation also noted in p osterobasal segment of right lower lobe. Primary consolidation is pneumonia. Patient admitted for pneumonia. Treated with zosyn/azithromycin as impatient, Dyspnea/cough have improved. Weakness improved. Patient is now at baseline oxygen. Patient will discharge today on levaquin with close follow up with PCP. Patient agrees with plan and is stable for discharge. Discharge Note New Diagnosis: Pneumonia New Medications: levaquin/prednisone Follow Up: pcp Latest Assessment & Plan (1) Pneumonia Current Visit: Yes Status: Acute Assessment & Plan: -Supplemental oxygen for goal spo2>92% -zosyn/azithromycin -RT eval -duonebs/solumedrol -WBC/LA wnl -respiratory viral panel negative -CT findings showing IMPRESSION: 1. Multifocal patchy areas of consolidation in basal segments of left lower lobe with few small patchy areas of consolidation also noted in posterobasal segment of right lower lobe. Primary consolidation is pneumonia. Recommended Clinical/radiographic follow up 2. Clustered small nodules in tree in bud pattern noted in posterior segment of right upper lobe, superior and basal segments of right lower lobe, representing acute infectious bronchiolitis. 3. These are few interval findings when compared to previous chest radiograph dated 02/14/2023 -blood cultures pending 12/01: -BC NGTD -Lungs clear -requiring continuous oxygen, will need to get qualified for continuous home o2 on d/c -solumedrol changed to prednisone Code(s): J18.9 - PNEUMONIA, UNSPECIFIED ORGANISM (2) NSTEMI (non-ST elevated myocardial infarction) Current Visit: Yes Status: Acute Assessment & Plan: -Trops elevated/downtrending, repeat in a.m. - could be respiratory driven -ekg showing normal sinus with no acute ischemic changes will repeat -denies chest pain -echo 12/01: -Echo pending -trops downtrending, most likely secondary to pneuomonia Code(s): I21.4 - NON-ST ELEVATION (NSTEMI) MYOCARDIAL INFARCTION (3) Chronic hypoxic respiratory failure Current Visit: Yes Status: Acute Assessment & Plan: -2/2 to pneumonia, see above (4) Lung cancer Current Visit: Yes Status: Acute Assessment & Plan: -s/p chemo/radiation Code(s): C34.90 - MALIGNANT NEOPLASM OF UNSP PART OF UNSP BRONCHUS OR LUNG (5) HTN (hypertension) Current Visit: Yes Status: Acute Assessment & Plan: -stable continue home medications Code(s): I10 - ESSENTIAL (PRIMARY) HYPERTENSION (6) Hypothyroidism Current Visit: Yes Status: Acute Assessment & Plan: -continue levothyroxine Code(s): E03.9 - HYPOTHYROIDISM, UNSPECIFIED (7) Chronic anemia Current Visit: Yes Status: Acute Assessment & Plan: -stable, will continue to monitor, transfuse if hgb <7 Code(s): D64.9 - ANEMIA, UNSPECIFIED (8) History of CVA with residual deficit Current Visit: Yes Status: Acute Assessment & Plan: -noted with residual weakness at baseline Code(s): I69.30 - UNSPECIFIED SEQUELAE OF CEREBRAL INFARCTION (9) Generalized weakness Current Visit: Yes Status: Acute Assessment & Plan: -2/2 to infectious etiology/known h/o cva with residual weakness -PT/OT eval Code(s): J18.9 - PNEUMONIA, UNSPECIFIED ORGANISM I spent 35 minutes [id number] with the patient on the day of discharge performing discharge exam, discussing hospital stay and discharge instructions with patient and caregivers, preparation of discharge records, prescriptions & referral forms and addressing any questions/concerns the patient had as doc umented above. - Vitals & Intake/Output Vital Signs: Vital Signs Temperature 97.0 F 12/02/23 04:00 Pulse Rate 68 12/02/23 04:00 Respiratory Rate 24 12/02/23 04:00 Blood Pressure 140/64 12/01/23 23:23 O2 Sat by Pulse Oximetry 96 12/02/23 04:00 Intake & Output: Intake & Output 11/29/23 11/30/23 12/01/23 12/02/23 11:59 11:59 11:59 11:59 Intake Total 380 940 560 Output Total 500 1100 225 Balance -120 -160 335 Weight 74.7 kg - Lab Result Diagrams: 12/01/23 05:12 12/01/23 05:12 Lab Results-Last 24 Hrs: Lab Results-Last 24 Hours 12/01/23 12/01/23 Range/Units 05:12 05:12 WBC 13.4 H (4.0-10.5) x10^3/uL RBC 2.96 L (4.1-5.6) x10^6/uL Hgb 9.0 L (12.5-18.0) g/dL Hct 27.7 L (42-50) % MCV 93.6 (78-100) fL MCH 30.4 (26-32) pg MCHC 32.5 (32-36) g/dL RDW 17.2 H (11.5-14.0) % Plt Count 200 (150-450) x10^3/uL MPV 11.4 H (7.5-11.0) fL Segmented Neutrophils 86 H (36.-66.) % Band Neutrophils 6 H (0.0-2.0) % Lymphocytes (Manual) 2 L (24-44) % Monocytes (Manual) 6 (0.0-12.0) % Toxic Granulation 2+ Platelet Estimate NORMAL (NORMAL) RBC Morphology ABNORMAL Sodium 133 L (137-145) mmol/L Potassium 4.1 (3.5-5.1) mmol/L Chloride 103 (98-107) mmol/L Carbon Dioxide 27 (22-30) mmol/L Anion Gap 7.0 (5-15) MEQ/L BUN 36 H (9-20) mg/dL Creatinine 1.33 H (0.66-1.25) mg/dL Estimated GFR 52.7 ML/MIN Glucose 149 H (74-106) mg/dL Calcium 8.7 (8.4-10.2) mg/dL Magnesium 2.1 (1.6-2.3) mg/dL Total Bilirubin 0.40 (0.2-1.3) mg/dL AST 17 (17-59) U/L ALT 12 (0-50) U/L Alkaline Phosphatase 91 (38-126) U/L Serum Total Protein 6.5 (6.3-8.2) g/dL Albumin 3.2 L (3.5-5.0) g/dL Micro Results-Entire Visit: Microbiology 11/29/23 20:00 Blood Culture - Preliminary Blood 11/29/23 19:55 Blood Culture - Preliminary Blood - Procedures and Test Procedures and Tests throughout Hospitalization: Therapy Orders & Screens 11/29/23 23:27 Respiratory Therapy Consult ONCE Comment: Reason For Exam: 11/30/23 01:07 Oxygen Nasal Cannula 2 lpm Comment: Respiratory Therapy Assessment DAILY Comment: 11/30/23 01:25 PT Screen per Nursing Assess ONCE Comment: Protocol Order Physician Instructions: Greater than 3 points order PT Admission Screenin Reason For Exam: Triggered on Admission Diagnosis: PNEUMONIA Open Wound/Cellutlitis/Pressure Ulcers: Yes Acute Fx/ORIF/Change in wt bearing status: No Severe MUSCULOSKELETAL pain: No ADL Dysfunction: No Acute CVA w/Hemiparesis/Hemiplegia: No Decreased Functional Mobility/Strength: No Sprain/Strain: No Acute Post-op Mobility Dysfunction: No Total Points: 5 RT Screen per Nursing Assess ONCE Comment: Protocol Order Physician Instructions: Greater than 3 points order RT Admission Screen Reason For Exam: Triggered on Admission Diagnosis: PNEUMONIA Diagnosis: PNEUMONIA Pneumonia: Yes Home O2: Yes: 2 Asthma: No CHF: No Home CPAP/BIPAP: No Home Nebs/MDI: No Total Points: 8 ST Screen per Nursing Assess ONCE Comment: Protocol Order Physician Instructions: Greater than [address] Admission Screening Reason For Exam: Triggered on Admission Diagnosis: PNEUMONIA CVA/Dyshpagia/Aphasia: No Cognitive Deficits: No Dehydration/Nutrition Deficit: No Reflux: No Oral-Motor Difficulties: No Pneumonia: Yes Prison Resident: No Total Points: 5 11/30/23 07:45 EKG ROUTINE Comment: Diagnosis: Perineal Pain 11/30/23 13:37 RT Miscellaneous Order ROUTINE Comment: Physician Instructions: Reason For Exam: WEAN O2- ONLY WEARS 2L AT HS Diagnosis: Perineal Pain <ADALID VÁSQUEZ - Last Filed: 12/02/23 12:30> - Vitals & Intake/Output Vital Signs: Vital Signs Temperature 96.7 F 12/02/23 08:00 Pulse Rate 60 12/02/23 10:31 Respiratory Rate 20 12/02/23 10:05 Blood Pressure 163/75 12/02/23 10:31 O2 Sat by Pulse Oximetry 96 12/02/23 10:31 Intake & Output: Intake & Output 11/30/23 12/01/23 12/02/23 12/03/23 11:59 11:59 11:59 11:59 Intake Total 380 940 680 120 Output Total 500 1100 225 200 Balance -120 -160 455 -80 Weight 74.7 kg - Lab Result Diagrams: 12/01/23 05:12 12/01/23 05:12 Micro Results-Entire Visit: Microbiology 11/29/23 20:00 Blood Culture - Preliminary Blood 11/29/23 19:55 Blood Culture - Preliminary Blood - Procedures and Test Procedures and Tests throughout Hospitalization: Therapy Orders & Screens 11/29/23 23:27 Respiratory Therapy Consult ONCE Comment: Reason For Exam: 11/30/23 01:07 Oxygen Nasal Cannula 2 lpm Comment: Respiratory Therapy Assessment DAILY Comment: 11/30/23 01:25 PT Screen per Nursing Assess ONCE Comment: Protocol Order Physician Instructions: Greater than 3 points order PT Admission Screenin Reason For Exam: Triggered on Admission Diagnosis: PNEUMONIA Open Wound/Cellutlitis/Pressure Ulcers: Yes Acute Fx/ORIF/Change in wt bearing status: No Severe MUSCULOSKELETAL pain: No ADL Dysfunction: No Acute CVA w/Hemiparesis/Hemiplegia: No Decreased Functional Mobility/Strength: No Sprain/Strain: No Acute Post-op Mobility Dysfunction: No Total Points: 5 RT Screen per Nursing Assess ONCE Comment: Protocol Order Physician Instructions: Greater than 3 points order RT Admission Screen Reason For Exam: Triggered on Admission Diagnosis: PNEUMONIA Diagnosis: PNEUMONIA Pneumonia: Yes Home O2: Yes: 2 Asthma: No CHF: No Home CPAP/BIPAP: No Home Nebs/MDI: No Total Points: 8 ST Screen per Nursing Assess ONCE Comment: Protocol Order Physician Instructions: Greater than [address] Admission Screening Reason For Exam: Triggered on Admission Diagnosis: PNEUMONIA CVA/Dyshpagia/Aphasia: No Cognitive Deficits: No Dehydration/Nutrition Deficit: No Reflux: No Oral-Motor Difficulties: No Pneumonia: Yes Prison Resident: No Total Points: 5 11/30/23 07:45 EKG ROUTINE Comment: Diagnosis: Perineal Pain 11/30/23 13:37 RT Miscellaneous Order ROUTINE Comment: Physician Instructions: Reason For Exam: WEAN O2- ONLY WEARS 2L AT HS Diagnosis: Perineal Pain <LUAN MO - Last Filed: 12/02/23 20:46> Discharge Exam General Appearance: no apparent distress Neurologic Exam: alert, oriented x 3, cooperative Eye Exam: PERRL Ears, Nose, Throat Exam: normal ENT inspection Neck Exam: normal inspection Respiratory Exam: normal breath sounds, lungs clear Cardiovascular Exam: regular rate/rhythm, normal heart sounds Gastrointestinal/Abdomen Exam: soft, normal bowel sounds Male Genitalia Exam: deferred Rectal Exam: deferred Back Exam: normal inspection Extremity Exam: normal inspection Skin Exam: normal color Wound Assessment: Skin/Wound Assessment Wound/Incision Assessment Start: 11/30/23 01:25 Text: Status: Active Freq: Q6H Protocol: Document 12/02/23 02:00 AB (Rec: 12/02/23 04:33 AB [id number]) Wound Photo Photo Taken No <ADALID VÁSQUEZ - Last Filed: 12/02/23 12:30> Final Diagnosis/Problem List - Final Discharge Diagnosis/Problem (1) Pneumonia Status: Acute Code(s): J18.9 - PNEUMONIA, UNSPECIFIED ORGANISM (2) NSTEMI (non-ST elevated myocardial infarction) Status: Acute Code(s): I21.4 - NON-ST ELEVATION (NSTEMI) MYOCARDIAL INFARCTION (3) Chronic hypoxic respiratory failure Status: Acute (4) Lung cancer Status: Acute Code(s): C34.90 - MALIGNANT NEOPLASM OF UNSP PART OF UNSP BRONCHUS OR LUNG (5) HTN (hypertension) Status: Acute Code(s): I10 - ESSENTIAL (PRIMARY) HYPERTENSION (6) Hypothyroidism Status: Acute Code(s): E03.9 - HYPOTHYROIDISM, UNSPECIFIED (7) Chronic anemia Status: Acute Code(s): D64.9 - ANEMIA, UNSPECIFIED (8) History of CVA with residual deficit Status: Acute Code(s): I69.30 - UNSPECIFIED SEQUELAE OF CEREBRAL INFARCTION (9) Generalized weakness Status: Acute Code(s): R53.1 - WEAKNESS <ADALID VÁSQUEZ - Last Filed: 12/02/23 12:30> <ADALID VÁSQUEZ - Last Filed: 12/02/23 12:30> <LUAN MO - Last Filed: 12/02/23 20:46> - Discharge Disposition: Home, Self-Care Condition: Stable Prescriptions: New Prednisone 20 mg [Deltasone 20 mg] 20 mg PO DAILY 5 Days #5 tablet levoFLOXacin [Levofloxacin] 750 mg PO DAILY 5 Days #5 tablet Continue Levothyroxine Sodium 112 Mcg [Synthroid 112 Mcg] 112 mcg PO DAILY Atorvastatin Calcium 40 mg PO HS Acetaminophen 500 mg [Tylenol Extra Strength 500 mg] 500 mg PO Q4HPRN PRN PRN Reason: Pain And/Or Fever Omeprazole 40 mg PO DAILY Metoprolol Tartrate 50 mg [Lopressor 50 MG] 50 mg PO BID Ketorolac Tromethamine 0.5% [Acular OPTH SINA] 5 ml OP BID Timolol Maleate/Dorzolam HCl [Cosopt Ophthalmic 10 ml] 1 drop OP BID Fluorometholone Acetate [Flarex] 5 ml OP DAILY Lisinopril 20 mg [Zestril 20 MG] 40 mg PO DAILY Diltiazem HCl [Cardizem LA] 300 mg PO DAILY Ferrous Sulfate 1 tab PO BID Ammonium Lactate [Ammonium Lactate 12%] See Rx Instructions .ROUTE .COMPLEX Multivitamin 1 tab PO DAILY Baclofen 10 mg [Lioresal 10 mg] 1 tab PO BID Latanoprost [Xalatan] 1 drop HS No Action Brimonidine Tartrate 1 drop OP BID Instructions: Pneumonia, Adult (DC) Follow up with: ALLIE GUDINO MD [Primary Care Provider] - Call for Appointment ERLIN PARKER Jr., MD [Family Provider] - Call for Appointment RAJINDER Encounter - RAJINDER Encounter Attestation RAJINDER Encounter Attestation: "IhavepersonallyseenCherrieGOPALRAEGAN DARIEN andhavediscussed pertinent aspects of their care with Adalid Vásquez and agree with the history, physical exam (any modifications based on my personal exam will be noted below), assessment, and plan as outlined in original note. Please see immediately below for my summary of findings and additional assessment and plan along with any meaningful corrections/explanations to the Subjective/Objective portions of the RAJINDER note will be noted." My portion of the encounter took place via telemedicine. <LUAN MO - Last Filed: 12/02/23 20:46>
[2023-12-02] MEDS: Sodium Chloride 0.9% 1000 ML 1,000 ML IV SCH (06:09)
[2023-12-02 08:14] VITALS: TEMP 96.7
[2023-12-02] MEDS: LIORESAL 10 MG PO SCH (09:09)
[2023-12-02] MEDS: Lopressor 50 MG PO SCH (09:09)
[2023-12-02] MEDS: DELTASONE 20 MG PO SCH (09:09)
[2023-12-02] MEDS: Protonix 40MG Tablet PO SCH (09:09)
[2023-12-02] MEDS: Zestril 20 MG PO SCH (09:09)
[2023-12-02] MEDS: FEOSOL 325 MG PO SCH (09:09)
[2023-12-02] MEDS: THERAGRAN MULTIVITAMIN PO SCH (09:09)
[2023-12-02] MEDS: SYNTHROID 112 MCG PO SCH (09:10)
[2023-12-02] MEDS: Cardizem CD PO SCH (09:10)
[2023-12-02] MEDS: PATIENT OWN MEDICATION OP SCH ×2 (09:20)
[2023-12-02] MEDS: Docusate Sodium 100 MG PO SCH (09:23)
[2023-12-02 10:06] VITALS: RESP 20
[2023-12-02 10:32] VITALS: BP 163/75; PULSE 60; O2SAT 96
== END 2023-12-02 14:58 | disposition home health service (06) ==
LOC: ED 19:15 → MED SURG 23:36
PROVIDERS: ADMIT Internal Medicine Critical Care Medicine; ATTEND Internal Medicine Critical Care Medicine
DX: J18.9 Pneumonia, unspecified organism (principal); I21.4 Non-ST elevation (NSTEMI) myocardial infarction; J96.11 Chronic respiratory failure with hypoxia; C34.90 Malignant neoplasm of unspecified part of unspecified bronchus or lung; I10 Essential (primary) hypertension; E03.9 Hypothyroidism, unspecified; D64.9 Anemia, unspecified; J44.9 Chronic obstructive pulmonary disease, unspecified; I69.30 Unspecified sequelae of cerebral infarction; R53.1 Weakness; Z79.899 Other long term (current) drug therapy; Z20.828 Contact with and (suspected) exposure to other viral communicable diseases; Z99.81 Dependence on supplemental oxygen
CPT/HCPCS: 0241U; 36000; 36415; 71045; 71250; 80053; 81001; 83605; 83735; 83880; 84134; 84484; 85025; 87040; 93005; 93041; 93268; 94640; 94760; 94762; 96365; 99285; G0378; Q3014; J0456; J0696; J1650; J2920; A9270-GY

== ENCOUNTER 2024-06-18 20:58 | Emergency (ER) | payer MEDICARE ==
[2024-06-18 21:29] VITALS: TEMP 97.4
[2024-06-18 22:14] VITALS: O2SAT 100
--- NOTE | 2024-06-18 22:35 | ERPHSYRPT ---
- History of Present Illness Time Seen by Provider: 06/18/24 21:30 Historian: patient Exam Limitations: no limitations Patient Subjective Stated Complaint: pt states that he hasn't had a bowel movement since sunday Triage Nursing Assessment: pt ambulated into the er with assistance walker; pt is axo x4; WRANGELL; c/o constipation; pt denies pain; pt denies N/V; active bowel sounds in all quads; skin PDW; no respiratory distress present; vitals wnl Physician History: 83-year-old male presents to our ED with his brother for evaluation of constipation. Patient has not had a bowel movement in 3 days. Brother states that patient's last bowel movement was very "hard". Patient complaining of lower abdominal discomfort. Patient feels as though he has to have a bowel movement but is unable to do so. No trauma no fever. No nausea vomiting no diarrhea no rash. Symptoms are progressive. Symptoms are moderate in intensity. Palpation to the lower abdomen reproduces symptoms. Patient lives alone. Patient is somewhat hard of hearing. Brother at bedside helping with HPI. Portions of this note were created with voice recognition technology. There may be grammatical, spelling, punctuation or sound alike errors Timing/Duration: day(s) (3 days) Activities at Onset: none Quality: aching Abdominal Pain Onset Location: other (Lower abdomen) Pain Radiation: no radiation Severity of Pain-Max: moderate Severity of Pain-Current: moderate Modifying Factors: Improves With: nothing Associated Symptoms: denies symptoms Previous symptoms: no prior history Allergies/Adverse Reactions: No Known Drug Allergies Allergy (Verified 06/18/24 21:17) Home Medications: Acetaminophen 500 mg [Tylenol Extra Strength 500 mg] 500 mg PO Q4HPRN PRN 02/11/23 [History] Atorvastatin Calcium 40 mg PO HS 02/11/23 [History] Fluorometholone Acetate [Flarex] 5 ml OP DAILY 02/11/23 [History] Ketorolac Tromethamine 0.5% [Acular OPTH SINA] 5 ml OP BID 02/11/23 [History] Levothyroxine Sodium 112 Mcg [Synthroid 112 Mcg] 112 mcg PO DAILY 02/11/23 [History] Metoprolol Tartrate 50 mg [Lopressor 50 MG] 50 mg PO BID 02/11/23 [History] Omeprazole 40 mg PO DAILY 02/11/23 [History] Timolol Maleate/Dorzolam HCl [Cosopt Ophthalmic 10 ml] 1 drop OP BID 02/11/23 [History] Lisinopril 20 mg [Zestril 20 MG] 40 mg PO DAILY 02/12/23 [History] dilTIAZem HCL [Cardizem LA] 300 mg PO DAILY 02/12/23 [History] Ammonium Lactate [Ammonium Lactate 12%] See Rx Instructions .ROUTE .COMPLEX 11/29/23 [History] Baclofen 10 mg [Lioresal 10 mg] 1 tab PO BID 11/29/23 [History] Ferrous Sulfate 1 tab PO BID 11/29/23 [History] Latanoprost [Xalatan] 1 drop HS 11/29/23 [History] Multivitamin 1 tab PO DAILY 11/29/23 [History] Brimonidine Tartrate 1 drop OP BID 12/02/23 [History] Hx Tetanus, Diphtheria Vaccination/Date Given: Yes Hx Influenza Vaccination/Date Given: Yes Hx Pneumococcal Vaccination/Date Given: Yes Travel Risk - International Travel Have you traveled outside of the country in past 3 weeks: No - Emerging Infectious Disease Are you exhibiting symptoms associated with any current EIDs: No - Review of Systems Constitutional: No Symptoms, No Fever, No Chills Eyes: No Symptoms Ears, Nose, & Throat: No Symptoms Respiratory: No Symptoms, No Cough, No Dyspnea Cardiac: No Symptoms, No Chest Pain, No Edema, No Syncope Abdominal/Gastrointestinal: No Symptoms, No Abdominal Pain, No Nausea, No Vomiting, No Diarrhea Genitourinary Symptoms: No Symptoms, No Dysuria Musculoskeletal: No Symptoms, No Back Pain, No Neck Pain Skin: No Symptoms, No Rash Neurological: No Symptoms, No Dizziness, No Focal Weakness, No Sensory Changes Psychological: No Symptoms Endocrine: No Symptoms Hematologic/Lymphatic: No Symptoms Immunological/Allergic: No Symptoms All Other Systems: Reviewed and Negative - Past Medical History Pertinent Past Medical History: Yes Neurological History: Migraines, TIA ENT History: Cataracts, Other Cardiac History: Arrhythmia, High Cholesterol, Hypertension Respiratory History: COPD Endocrine Medical History: Adrenal Insufficiency, Hypothyroidism Musculoskeletal History: Osteoarthritis GI Medical History: GERD History: No Pertinent History Psycho-Social History: No Pertinent History Male Reproductive Disorders: No Pertinent History Other Medical History: A-FIB - Past Surgical History Past Surgical History: Yes Neuro Surgical History: No Pertinent History Cardiac: Cardiac Catheterization, Internal Defibrillator, Pacemaker Respiratory: No Pertinent History Gastrointestinal: Appendectomy Genitourinary: No Pertinent History Musculoskeletal: Orthopedic Surgery Male Surgical History: No Pertinent History Other Surgical History: left knee-bone chip removed, bilateral cataracts removed, R hand trigger finger release., left elbow - Social History Smoking Status: Former smoker How long have you smoked: 40 YEARS Exposure to second hand smoke: No Drug Use: none Patient Lives Alone: Yes - Social Determinants of Health Will the patient participate in the screening: Unable to obtain - Nursing Vital Signs Nursing Vital Signs: Initial Vital Signs Pulse Rate 70 06/18/24 21:16 Blood Pressure 135/80 06/18/24 21:16 O2 Sat by Pulse Oximetry 100 06/18/24 21:16 Pain Scale Pain Intensity 8 - Physical Exam General Appearance: no apparent distress, alert Eye Exam: PERRL/EOMI, eyes nml inspection Ears, Nose, Throat Exam: normal ENT inspection, pharynx normal, moist mucous membranes Neck Exam: normal inspection, non-tender, supple, full range of motion Respiratory Exam: normal breath sounds, lungs clear, No respiratory distress Cardiovascular Exam: regular rate/rhythm, normal heart sounds Gastrointestinal/Abdomen Exam: soft, tenderness, other (Tenderness to palpation lower abdomen), No mass Back Exam: normal inspection, normal range of motion, No CVA tenderness, No vertebral tenderness Extremity Exam: normal inspection, normal range of motion, pelvis stable Neurologic Exam: alert, oriented x 3, cooperative, normal mood/affect, sensation nml, No motor deficits Skin Exam: normal color, warm, dry SpO2 Interpretation: normal SpO2: 100 O2 Delivery: Room Air - Course Nursing assessment & vital signs reviewed: Yes - CT Exams Abdomen/Pelvis CT Interpretation: Tele-radiologist Report (Compared to CT abdomen pelvis 10/09/2023 stable mucus impaction right lower lobe without consolidation or effusion. Again moderate diffuse fecal stasis with marked rectal fecal impaction. Small stable left adrenal adenoma and bilateral renal cyst.) Ordered Tests: Active Orders 24 hr Category Date Time Status ABDOMEN AND PELVIS W/0 CONTRAS [CT] Stat Exams 06/18/24 21:28 Taken - Progress Progress: improved Progress Note: 83-year-old male presents to our ED for evaluation of lower abdominal pain and constipation for approximately 3 days. Physical exam revealed some lower abdominal tenderness. CT abdomen pelvis reveals rectal fecal impaction. Diffuse fecal stasis. Patient was disimpacted by staff. Patient had a moderately large bowel movement. Patient reassessed. His symptoms resolved he feels well has no complaints and states he is ready for discharge. Brother at bedside. They voiced no other complaints or concerns at this time. Portions of this note were created with voice recognition technology. There may be grammatical, spelling, punctuation or sound alike errors Complexity problem addressed is moderate acute complicated. No critical care time. Complex of data reviewed and analyzed is moderate. Test ordered test reviewed results analyzed and correlated clinically with history and physical exam. Risk of complication and or risk of morbidity/mortality patient management is low. Vital stable. Time spent to discharge patient is approximately 15 minutes. Plan of care established for shared decision making. No social determinants of health present impede follow-up. Portions of this note were created with voice recognition technology. There may be grammatical, spelling, punctuation or sound alike errors 06/18/24 23:18 Counseled pt/family regarding: diagnosis, need for follow-up, rad results - Departure Departure Disposition: Home Clinical Impression: Constipation, Fecal impaction, Adenoma of left adrenal gland, Bilateral renal cysts Condition: Stable Critical Care Time: No Referrals: ALLIE GUDINO MD [Primary Care Provider] - Follow up/PCP as directed Additional Instructions: Discharge/Care Plan MIKERAEGAN LEDEZMA was seen on 06/18/24 in the Emergency Room. The patient was counseled regarding Diagnosis,Lab results, Imaging studies, need for follow up and when to return to the Emergency Room. Prescriptions given: Discharge Note I have spoken with the patient and/or caregivers. I have explained the patient's condition, diagnosis and treatment plan based on the information available to me at this time. I have answered the patient's and/or caregiver's questions and addressed any concerns. The patient and/or caregivers have as good understanding of the patient's diagnosis, condition and treatment plan as can be expected at this point. The vital signs have been stable. The patient's condition is stable and appropriate for discharge from the emergency department. The patient will pursue further outpatient evaluation with the primary care physician or other designated or consulting physician as outlined in the discharge instructions. The patient and/or caregivers are agreeable to this plan of care and follow-up instructions have been explained in detail. The patient and/or caregivers have received these instruction. The patient/and or caregivers are aware that any significant change in condition or worsening of symptoms should prompt an immediate return to this or the closest emergency department or call 911.
[2024-06-18 23:42] VITALS: BP 145/66; PULSE 78; RESP 20
--- NOTE | 2024-06-19 08:48 | XRAY ---
Indication: Abdominal pain. Constipation. Multiple contiguous axial images obtained through abdomen and pelvis without contrast. Comparison: October 09, 2023 Lung bases again demonstrates incompletely visualized mucus impaction posterior medial bronchioles right lower lobe. No infiltrate or effusion. Heart not enlarged. Noncontrasted stomach and bowel loops appear nonobstructed. Again there is moderate diffuse scattered colonic fecal debris with moderate rectal fecal impaction. Stable small bilateral renal cysts and small left adrenal adenoma. No free fluid/air. Remaining liver, gallbladder, pancreas, spleen, adrenal glands, kidneys, ureters, and bladder are unremarkable for noncontrast exam. Again extensive scattered arteriosclerotic calcifications without AAA. Osseous structures intact again with osteopenia, mild multilevel degenerative spondylosis, and mild degenerative changes both hips. Impression: 1. Again moderate diffuse fecal stasis with rectal fecal impaction. 2. Chronic findings including mucus impaction bronchioles posterior medial right lower lobe, bilateral renal cysts, left adrenal adenoma, arteriosclerotic disease, and chronic bony findings.
== END 2024-06-18 23:38 | disposition home or self-care (01) ==
LOC: ED 20:58
DX: K59.00 Constipation, unspecified (principal); D35.02 Benign neoplasm of left adrenal gland; Q61.02 Congenital multiple renal cysts; R10.30 Lower abdominal pain, unspecified; E78.5 Hyperlipidemia, unspecified; I10 Essential (primary) hypertension; Z79.899 Other long term (current) drug therapy
CPT/HCPCS: 74176; 99283